=== PATIENT | male | born 1955 | race Caucasian/White ===

== ENCOUNTER 2019-02-28 05:33 | Outpatient (RCR) | payer MEDICARE, OTHER, SELFPAY | END 2019-03-01 00:01 | LOC: ONCMED 05:33 | PROVIDERS: Family Provider Family Medicine; Visit Provider Internal Medicine Medical Oncology | DX: D45 Polycythemia vera (principal) | CPT/HCPCS: 85025 ×2 ==

== ENCOUNTER → 2019-03-17 10:52 | Outpatient (BNVA) | payer MEDICARE, OTHER, SELFPAY | PROVIDERS: Family Provider Family Medicine; PCP Family Medicine; Referring Provider Family Medicine; Visit Provider Orthopaedic Surgery | DX: M70.42 Prepatellar bursitis, left knee (principal) | CPT/HCPCS: 73560 ==

== ENCOUNTER 2019-03-28 05:37 | Outpatient (RCR) | payer MEDICARE, OTHER, SELFPAY ==
[2019-03-07 10:26] LABS: Basophils # 0.1 10^3/uL (0.0-0.1); Basophils % 0.4 %; Eosinophils # 0.2 10^3/uL (0.0-0.8); Eosinophils % 0.7 %; Hematocrit 46.2 % (42.0-52.0); Hemoglobin 15.7 g/dL (11.7-16.6); Lymphocytes # 1.7 10^3/uL (0.8-4.8); Lymphocytes % 6.1 %; Mean Corpuscular Hemoglobin 41.4 pg (28.0-34.0); Mean Corpuscular Volume 121.9 fL (80-94); Mean Platelet Volume 10.3 fL (7.4-10.4); Monocytes # 0.9 10^3/uL (0.2-0.9); Monocytes % 3.2 %; Neutrophils # 25.1 10^3/uL (1.8-7.7); Neutrophils % 88.3 %; Nucleated Red Blood Cells % 0 %; Platelet Count 448 10^3/cmm (130-400); Red Blood Count 3.79 10^6/uL (4.1-5.3); Red Cell Distribution Width 14.2 % (12.1-15.1); White Blood Count 28.4 10^3/uL (4.0-10.0)
[2019-03-07 10:45] LABS: Alanine Aminotransferase 11 U/L (0-41); Albumin Level 4.7 g/dL (3.5-5.2); Alkaline Phosphatase 99 IU/L (40-130); Anion Gap 15.6 (5-19); Aspartate Amino Transferase 20 U/L (0-40); Blood Urea Nitrogen 20 mg/dL (8-23); Calcium 9.8 mg/Dl (8.8-10.2); Carbon Dioxide 25 mmol/L (22-29); Chloride 100 mmol/L (98-107); Globulin 2.3 g/dL (1.3-4.6); Glomerular Filtration Rate 67.2 mL/min (90-130); Glucose 104 mg/dL (74-106); Potassium 4.6 mmol/L (3.5-5.1); Sodium 136 mmol/L (136-145); Total Bilirubin 0.4 mg/dL (0.15-1.2)
[2019-03-07 10:53] LABS: Lactate Dehydrogenase 301 U/L (135-225)
--- NOTE | 2019-03-08 08:00 | ONC FU_ITS ---
Dr. Vincent Patient Follow-Up Note Patient: John Tsai Unit #: [id number]: 1955 Dicatated By: Nghia Vincent M.D.Date of Visit:Mar 07, 2019 Onc Med Follow-up/Prog Note Chief Complaint: Polycythemia. History of Present Illness: This is a 63 year-old man with polycythemia rubra vera. It was initially diagnosed in April of 2008. At that time his hemoglobin was markedly elevated at 23.6 g with hematocrit 63%. He had a moderately elevated white count at 20,000, but the platelet count was normal. A JAK2 gene mutation study was positive for the JAK2 [id number] mutation. He was initially managed with phlebotomies. He was later started on hydroxyurea after his platelet count had increased. Since then, he has continued to have a moderate leukocytosis and he also has continued to require phlebotomy occasionally, but his platelet counts have remained normal on hydroxyurea. He has otherwise been in good health. He has had no other medical illnesses, but during followup he has had symptoms of arterial insufficiency in the upper extremities. He also has had evidence of left ventricular hypertrophy. He is a nonsmoker. INTERIM HISTORY: During follow-up his white blood cell count had increased gradually, and he had been requiring phlebotomy more frequently. As of his visit in July 2017 his hydroxyurea dosage was increased to 1500 mg daily. During subsequent follow-up there was some decline in the white blood cell count and the platelet count, and his hemoglobin/hematocrit levels had remained in target range. He was last phlebotomized in January 2018. On 02/03/2019 he was seen for an unplanned visit, as he had developed evidence of arterial insufficiency in the left second and third fingers and his blood count had become significantly elevated with hemoglobin up to 18.5 g, white blood cell count 43,000, and platelet count 381,000. At that time he was phlebotomized, and his hydroxyurea dosage was increased to 1 g 3 times daily. In addition, he was started on cilostazol, but he was not able to tolerate it due to nausea and headache. During subsequent follow-up his blood counts did come down significantly, and as of 02/17/2019 the hydroxyurea dosage was reduced back to 500 mg 3 times daily. He is seen for a follow-up visit. He is still feeling good generally. He has no significant complaints other than the left middle finger is still discolored, and the skin at the tip of the finger has now started to peel. He continues to have some pain with it, but he is still working. Medications: amLODIPine Besylate 1 Tablet (of 5 mg) Oral daily, Childrens Aspirin 1 Tablet (of 81 mg) Tablet, chewable Oral daily, Hydroxyurea 1 Capsule (of 500 mg) Oral t.i.d. Allergies: Iodine Review of Systems: Constitutional - His energy is still okay and he still has normal activity. His appetite is good and his weight is stable. No fever or night sweats. ECOG score is 0, ENMT - No sinus congestion/drainage. No mouth sores. No sore throat or difficulty swallowing, Hematologic/Lymphatic - No abnormal bruising or bleeding, Respiratory - No shortness of breath. No cough. No pleuritic pain or hemoptysis, Cardiovascular - He has arterial insufficiency in his left hand. No angina pain. No palpitations, Gastrointestinal - No nausea or vomiting. No heartburn or acid reflux. No diarrhea or constipation. No blood in the stool or black stools, Genitourinary (M) - No dysuria or hematuria. No urinary frequency. No urgency or incontinence, Musculoskeletal - He still has pain in his left middle finger. He has no other joint or bone pain, Integumentary - He has skin discoloration in his left middle finger, Neurologic - No headache or dizziness. He occasionally has numbness in his left hand, Psychiatric - No anxiety or depression. No insomnia. Vital Signs: Performed on Mar 07, 2019 13:03 Height - 67.00 in Weight - 178.2 lbs (HIGH) BSA - 1.93 sq.m BMI - 27.91 Temperature - 99.3 F (HIGH) Pulse - 62 /min Respiration - 20 /min BP - 141/78 mm(hg) (HIGH) O2 Sat - 99 % Pain - 0 Physical Examination: Constitutional - He looks good generally, Eyes - Sclerae nonicteric. Conjunctivae clear, ENMT - No lesions noted in the oral cavity, Hematologic/Lymphatic - No cervical, clavicular, or axillary adenopathy, Respiratory - Lungs sound clear with good air movement bilaterally, Cardiovascular - Heart rhythm is regular. There is a II/ systolic murmur which is loudest at the aortic area. There is no gallop or rub noted, Abdomen - Soft. Liver is not enlarged. Spleen is not palpable. There is no abdominal mass or ascites noted and there is no inguinal adenopathy, Extremities - No edema. There is presistent discoloration of the distal left middle finger, now with some skin desquamation at the fingertip. The left index has improved significantly, Neurologic - No focal neurologic deficits noted. Lab/Imaging: Test performed on Feb 28, 2019 09:31 WBC 17.9 10 3/uL RBC 3.88 10 6/uL HGB 15.5 g/dL HCT 45.8 % MCV 118.0 fl MCH 39.9 pg MCHC 33.8 g/dl RDW 13.7 % Platelet Count 287 10 3/cmm MPV 10.8 fl Neutrophils 14.6 10 3/uL Lymphocytes 1.9 10 3/uL Monocytes 1.0 10 3/uL Eosinophils 0.2 10 3/uL Basophils 0.1 10 3/uL Neutrophil % 81.2 % Lymphocyte % 10.5 % Monocyte % 5.5 % Eosinophil % 0.8 % Basophils % 0.7 % Impression: 1. Patient with polycythemia rubra vera, initially diagnosed in 2008. He has been on treatment with hydroxyurea, which he tolerates well. He has persistent leukocytosis on treatment. His platelet count, though, have remained in normal range, and he requires phlebotomy just occasionally. 2. During followup he has had evidence of arterial insufficiency in the upper extremities. 3. There was evidence on echocardiogram of left ventricular hypertrophy. During follow-up there was some increase in his white blood cell count, and he had been requiring phlebotomy more frequently. His platelet count had remained normal on the hydroxyurea, but as of July 2017 the hydroxyrea dosage was escalated to 1500 mg daily. . During subsequent follow-up his blood counts had been under better control. He had continued to show gradual decline in his white blood cell count, and he was not requiring any phlebotomy. He had reported episodic cardiovascular symptoms which were somewhat disconcerting, but they had been infrequent. On 02/03/2019 he had presented with evidence of arterial insufficiency in both hands, but significantly worse in the left hand, despite having very good peripheral arterial pulses. His blood counts had increased significantly with his hemoglobin up to 18.5 g. At that time he was phlebotomized and his hydroxyurea dosage was increased to 1 g 3 times daily. He also started treatment with amlodipine 5 mg daily and subsequently with cilostazol 100 mg twice daily. He was not able to tolerate the cilostazol due to nausea and headache. During subsequent follow-up, the blood counts did come down significantly and as of 02/17/2019 the hydroxyurea dosage was reduced back to 500 mg 3 times daily. There has now been noticeable improvement in the appearance of the left index finger, but not so much in the left middle finger. He is otherwise not symptomatic, but his blood counts are increasing again. Plan: He will increase the hydroxyurea dosage to 1 g twice daily. He will be scheduled to return in 1 week for a blood count and a phlebotomy, and he will then continue to have blood counts checked weekly. I will see him again in 1 month. Signed By: Nghia Vincent M.D. <<Signature on File>>
[2019-03-14 10:51] LABS: Basophils # 0.1 10^3/uL (0.0-0.1); Basophils % 0.5 %; Eosinophils # 0.1 10^3/uL (0.0-0.8); Eosinophils % 0.6 %; Hematocrit 46.6 % (42.0-52.0); Hemoglobin 15.7 g/dL (11.7-16.6); Lymphocytes # 1.9 10^3/uL (0.8-4.8); Lymphocytes % 8.8 %; Mean Corpuscular HGB Conc 33.7 g/dL (30.0-36.0); Mean Corpuscular Hemoglobin 41.1 pg (28.0-34.0); Mean Platelet Volume 10.4 fL (7.4-10.4); Monocytes # 0.6 10^3/uL (0.2-0.9); Monocytes % 2.9 %; Neutrophils # 18.9 10^3/uL (1.8-7.7); Neutrophils % 86.3 %; Nucleated Red Blood Cells % 0 %; Platelet Count 485 10^3/cmm (130-400); Red Blood Count 3.82 10^6/uL (4.1-5.3); Red Cell Distribution Width 14.5 % (12.1-15.1); White Blood Count 21.9 10^3/uL (4.0-10.0)
[2019-03-21 08:45] LABS: Basophils # 0.1 10^3/uL (0.0-0.1); Basophils % 0.5 %; Eosinophils # 0.1 10^3/uL (0.0-0.8); Eosinophils % 0.4 %; Hematocrit 41.4 % (42.0-52.0); Hemoglobin 14.1 g/dL (11.7-16.6); Lymphocytes # 1.6 10^3/uL (0.8-4.8); Lymphocytes % 9.8 %; Mean Corpuscular HGB Conc 34.1 g/dL (30.0-36.0); Mean Corpuscular Hemoglobin 40.6 pg (28.0-34.0); Mean Corpuscular Volume 119.3 fL (80-94); Mean Platelet Volume 10.3 fL (7.4-10.4); Monocytes # 0.6 10^3/uL (0.2-0.9); Monocytes % 3.6 %; Neutrophils # 14.1 10^3/uL (1.8-7.7); Neutrophils % 85.1 %; Nucleated Red Blood Cells % 0 %; Platelet Count 344 10^3/cmm (130-400); Red Blood Count 3.47 10^6/uL (4.1-5.3); White Blood Count 16.6 10^3/uL (4.0-10.0)
[2019-03-28 08:38] LABS: Basophils # 0.1 10^3/uL (0.0-0.1); Basophils % 0.6 %; Eosinophils # 0.1 10^3/uL (0.0-0.8); Eosinophils % 0.6 %; Hematocrit 41.5 % (42.0-52.0); Lymphocytes # 1.5 10^3/uL (0.8-4.8); Lymphocytes % 11.4 %; Mean Corpuscular HGB Conc 33.7 g/dL (30.0-36.0); Mean Corpuscular Hemoglobin 40.5 pg (28.0-34.0); Mean Corpuscular Volume 119.9 fL (80-94); Mean Platelet Volume 10.2 fL (7.4-10.4); Monocytes # 0.5 10^3/uL (0.2-0.9); Monocytes % 4.2 %; Neutrophils # 10.5 10^3/uL (1.8-7.7); Neutrophils % 82.6 %; Nucleated Red Blood Cells % 0 %; Platelet Count 262 10^3/cmm (130-400); Red Blood Count 3.46 10^6/uL (4.1-5.3); Red Cell Distribution Width 15.8 % (12.1-15.1); White Blood Count 12.7 10^3/uL (4.0-10.0)
== END 2019-04-01 23:59 | disposition home or self-care (01) ==
LOC: ONCMED 05:37
PROVIDERS: Family Provider Family Medicine; Visit Provider Internal Medicine Medical Oncology
DX: D45 Polycythemia vera (principal); I73.9 Peripheral vascular disease, unspecified; I51.7 Cardiomegaly; Z79.899 Other long term (current) drug therapy; Z79.82 Long term (current) use of aspirin
CPT/HCPCS: 80053; 83615; 85025; 99195; 99211; 99214

== ENCOUNTER 2019-03-30 06:47 | Day surgery (SDC) | payer MEDICARE, OTHER, SELFPAY ==
[2019-03-29 14:11] VITALS: BMI 26.6
[2019-03-30 07:10] VITALS: BP 159/87; PULSE 63; RESP 18; TEMP 36.8; O2SAT 100
[2019-03-30] MEDS: sodium chloride 0.9% 1,000 ML 30 ML IV (07:27)
--- NOTE | 2019-03-30 07:51 | P.ANES_ITS ---
Pre-Anesthetic Assessment Pre-Anesthetic Assessment: Height/Weight: Height 1.73 m Weight 79.379 kg Temp Pulse Resp BP Pulse Ox 98.3 F 63 18 159/87 100 03/30/19 07:10 03/30/19 07:10 03/30/19 07:10 03/30/19 07:10 03/30/19 07:10 Preop Diagnosis: Infected left prepatellar bursa Proposed Procedure: Operation Date: 03/30/19 08:40 Proposed Procedures p Excision of patella bursa of left knee 80456 M70.42(Left) - Karl Mccrary MD Familial anesthetic complications: No hx of anesthesia Was Beta Silvia taken within 24 hours: N/A Last intake: Intake Last Liquid Date 03/29/19 Last Liquid Time 20:00 Last Solid Date 03/29/19 Last Solid Time 20:00 Social: Social History: No alcohol and No tobacco Exam: Pre-Anes Outpt Exam: alert, oriented x 3, clear to auscultation bilater ally and regular rate & rhythm Airway: Cervical ROM: WNL MP: 3 Additional comments: missing Pulmonary: Pulmonary: None reported CV/HEM: CV/HEM: None reported : : None reported Hepatic: Hepatic: None reported GI: GI: None reported Metabolic: Comments: Patient polycythemia (acrocyanosis of L finger), sensitive to hot or cold, fatigued Musc/skel: Musc/skel: None reported Neuropsych: Neuropsych: None reported Anesthetic Plan: ASA status: III Anesthesia: MAC Meds/Allergies Current Medications: Current Medications Generic Name Dose Route Start Last Admin Trade Name Freq PRN Reason Stop Dose Admin Sodium Chloride 1,000 mls @ 30 ml s/hr 03/30/19 07:00 03/30/19 07:27 Sodium Chloride 0.9% IV 03/31/19 06:59 30 mls/hr .Q24H BIMAL Administration Data Anesthesia Cardiac Studies: No Data to Display
--- NOTE | 2019-03-30 08:53 | PM.HPUD ---
H&P update H&P Update: DATE OF SURGERY/PROCEDURE: 03/30/19 DATE H&P PERFORMED: 03/17/19 H&P UPDATE INFORMATION: H&P completed within last 30 days and No changes to prior documentation PREOP DIAGNOSIS: Infected left prepatellar bursa PRIMARY INDICATION FOR PROCEDURE: Infected left prepatellar bursa PLANNED PROCEDURE: Operation Date: 03/30/19 08:40 Proposed Procedures p Excision of patella bursa of left knee 70660 M70.42(Left) - Karl Mccrary MD Full H&P Medications/Allergies: Current Medications: Current Medications Generic Name Dose Route Start Last Admin Trade Name Freq PRN Reason Stop Dose Admin Sodium Chloride 1,000 mls @ 30 ml s/hr 03/30/19 07:00 03/30/19 07:27 Sodium Chloride 0.9% IV 03/31/19 06:59 30 mls/hr .Q24H BIMAL Administration
[2019-03-30 10:24] VITALS: BP 128/80; PULSE 58; RESP 18; TEMP 36.7; O2SAT 96
[2019-03-30 10:51] VITALS: BP 119/79; PULSE 58; RESP 18; TEMP 36.7; O2SAT 96
--- NOTE | 2019-03-30 10:51 | PM.OP ---
Operative Report Date of procedure: 03/30/19 Pre-op Diagnosis: infected left prepatellar bursa Post-op diagnosis: same Post-op Findings: Same Procedure Done: Excision left prepatellar bursa Pathology: other Pathology: Routine cultures were sent to pathology from the bursal tissue removed. Anesthesia: MAC and Local Estimated blood loss (mL): 0 Complications: None Findings: Patient had a thickened prepatellar bursa overlying his tibial tubercle approximately 3 cm in diameter with a central skin nidus expressing trace serous fluid Condition: stable Disposition: PACU Procedure: The patient was taken to the operating room and given sedation by the anesthesia department. The skin was anesthetized with 1% lidocaine with epinephrine midline and circumferentially around the bursa. A midline incision was made approximately 3 cm long. Utilizing sharp scissors the is thickened and scarred bursa was removed circumferentially then elevated off the tibial tubercle and distal patellar tendon. No obvious purulent fluid was identified however a swab was taken of the bursal tissue removed which was sent to pathology. The tourniquet was deflated. The skin edges were closed with 3-0 Prolene horizontal mattress sutures of grabbing the deep tissue with the stitch. Duraflow gauze, 4 x 4's, compressive wrap roll, and a compressive Sebastian wrap were applied. The patient was taken recovery room in stable condition.
== END 2019-03-30 12:12 | disposition home or self-care (01) ==
PROVIDERS: Family Provider Family Medicine; PCP Family Medicine; Visit Provider Orthopaedic Surgery
PROC: (CPT 29870; principal; 2019-03-30 08:40)
DX: M71.162 Other infective bursitis, left knee (principal); Z79.82 Long term (current) use of aspirin
CPT/HCPCS: 27340; 12345; 87070; 87075; 87077; 87186; 87205; J2001; J2250; J2704; J3010; J7030

== ENCOUNTER 2019-04-11 05:59 | Outpatient (RCR) | payer MEDICARE, OTHER, SELFPAY ==
[2019-04-11 11:20] LABS: Basophils # 0.1 10^3/uL (0.0-0.1); Basophils % 0.6 %; Eosinophils # 0.1 10^3/uL (0.0-0.8); Eosinophils % 0.8 %; Hematocrit 43.6 % (42.0-52.0); Hemoglobin 15.1 g/dL (11.7-16.6); Lymphocytes # 2.1 10^3/uL (0.8-4.8); Lymphocytes % 12.6 %; Mean Corpuscular HGB Conc 34.6 g/dL (30.0-36.0); Mean Corpuscular Hemoglobin 42.8 pg (28.0-34.0); Mean Corpuscular Volume 123.5 fL (80-94); Monocytes # 0.6 10^3/uL (0.2-0.9); Monocytes % 3.6 %; Neutrophils # 13.7 10^3/uL (1.8-7.7); Neutrophils % 81.2 %; Nucleated Red Blood Cells % 0 %; Platelet Count 303 10^3/cmm (130-400); Red Blood Count 3.53 10^6/uL (4.1-5.3); Red Cell Distribution Width 16.5 % (12.1-15.1); White Blood Count 16.9 10^3/uL (4.0-10.0)
[2019-04-11 11:49] LABS: Alanine Aminotransferase 12 U/L (0-41); Albumin Level 4.1 g/dL (3.5-5.2); Alkaline Phosphatase 90 IU/L (40-130); Anion Gap 17.2 (5-19); Aspartate Amino Transferase 21 U/L (0-40); Blood Urea Nitrogen 20 mg/dL (8-23); Calcium 9.4 mg/dL (8.5-10.5); Carbon Dioxide 25 mmol/L (22-29); Chloride 99 mmol/L (98-107); Globulin 3.4 g/dL (1.3-4.6); Glomerular Filtration Rate 67.2 mL/min (90-130); Glucose 104 mg/dL (65-115); Lactate Dehydrogenase 226 U/L (135-225); Potassium 4.2 mmol/L (3.5-5.1); Sodium 137 mmol/L (136-145); Total Bilirubin 0.4 mg/dL (0.15-1.2); Total Protein 7.5 g/dL (6.6-8.7)
--- NOTE | 2019-04-11 17:08 | ONC FU_ITS ---
Dr. Vincent Patient Follow-Up Note Patient: John Tsai Unit #: [id number]: [id number] Dicatated By: Nghia Vincent M.D.Date of Visit:Apr 11, 2019 Onc Med Follow-up/Prog Note Chief Complaint: Polycythemia. History of Present Illness: This is a 63 year-old man with polycythemia rubra vera. It was initially diagnosed in April of 2008. At that time his hemoglobin was markedly elevated at 23.6 g with hematocrit 63%. He had a moderately elevated white count at 20,000, but the platelet count was normal. A JAK2 gene mutation study was positive for the JAK2 V617F mutation. He was initially managed with phlebotomies. He was later started on hydroxyurea after his platelet count had increased. Since then, he has continued to have a moderate leukocytosis and he also has continued to require phlebotomy occasionally, but his platelet counts have remained normal on hydroxyurea. He has otherwise been in good health. He has had no other medical illnesses, but during followup he has had symptoms of arterial insufficiency in the upper extremities. He also has had evidence of left ventricular hypertrophy. He is a nonsmoker. INTERIM HISTORY: During follow-up his white blood cell count had increased gradually, and he had been requiring phlebotomy more frequently. As of his visit in July 2017 his hydroxyurea dosage was increased to 1500 mg daily. During subsequent follow-up there was some decline in the white blood cell count and the platelet count, and his hemoglobin/hematocrit levels had remained in target range. He was last phlebotomized in January 2018. On 02/03/2019 he was seen for an unplanned visit, as he had developed evidence of arterial insufficiency in the left second and third fingers and his blood count had become significantly elevated with hemoglobin up to 18.5 g, white blood cell count 43,000, and platelet count 381,000. At that time he was phlebotomized, and his hydroxyurea dosage was increased to 1 g 3 times daily. In addition, he was started on cilostazol, but he was not able to tolerate it due to nausea and headache. During subsequent follow-up his blood counts did come down significantly. The hydroxyurea dosage was subsequently reduced back to 500 mg 3 times daily, but as of 03/07/2019 I had increased it to 1 gm bid. He is seen for a follow-up visit. He has been tolerating the higher dosage of hydroxyurea with no adverse effects. He has ongoing complaints associated with arterial insufficiency of the distal left middle finger. He has been managing it topically with lidocaine, but he does have significant pain whenever that wears off. He also has been having pain in his left knee, and on 03/30/2019 he underwent excision of the left prepatellar bursa for suspected chronic bursitis. There was no obvious purulent fluid identified. A small amount of serous fluid was sent for culture, and it did grow enterococcus. He currently is on antibiotic coverage with Augmentin. Medications: amLODIPine Besylate 1 Tablet (of 5 mg) Oral daily, Augmentin 1 Tablet (of 500-125 mg) Oral t.i.d. for 10 days, Childrens Aspirin 1 Tablet (of 81 mg) Tablet, chewable Oral daily, Hydroxyurea 1 Capsule (of 500 mg) Oral four times a day Allergies: Iodine Review of Systems: Constitutional - His energy is pretty good, but his activity has been restricted due to a recent knee surgery. His appetite is good and his weight is up a couple of pounds. No fever, chills, hot flashes, or night sweats. ECOG score is 2, ENMT - No sinus congestion/drainage. No mouth sores. No sore throat or difficulty swallowing, Hematologic/Lymphatic - He bruises easily, Respiratory - No shortness of breath. No cough. No pleuritic pain or hemoptysis, Cardiovascular - No angina pain. No palpitations, Gastrointestinal - No nausea or vomiting. He has occasional heartburn. No diarrhea or constipation. No blood in the stool or black stools, Genitourinary (M) - No dysuria or hematuria. No urinary frequency. No urgency or incontinence, Musculoskeletal - He has some pain in his left knee. 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 No numbness/paresthesias or other focal neurologic symptoms, Psychiatric - No anxiety or depression. No insomnia. Vital Signs: Performed on Apr 11, 2019 13:40 Height - 67.00 in Weight - 180.2 lbs (HIGH) BSA - 1.93 sq.m BMI - 28.22 Temperature - 98.7 F Pulse - 66 /min Respiration - 18 /min BP - 137/79 mm(hg) O2 Sat - 97 % Pain - 0 Physical Examination: Constitutional - He looks pretty good generally, Eyes - Sclerae nonicteric. Conjunctivae clear, ENMT - No lesions noted in the oral cavity, Hematologic/Lymphatic - No cervical, clavicular, or axillary adenopathy, Respiratory - Lungs sound clear with good air movement bilaterally, Cardiovascular - Heart rhythm is regular. There is a II/ systolic murmur. There is no gallop or rub noted, Abdomen - Soft. Liver is not enlarged. Spleen is not palpable. There is no abdominal mass or ascites noted and there is no inguinal adenopathy, Extremities - No edema. There is presistent discoloration of the distal left middle finger, and there does appear to be necrosis of the fingertip. The left index finger has only minimal residual discoloration. He has good radial pulses bilaterally, Neurologic - No focal neurologic deficits noted. Lab/Imaging: Test performed on Apr 11, 2019 10:28 LDH (Total) 226 U/L Sodium 137 mmol/L Potassium 4.2 mmol/L Chloride 99 mmol/L CO2 25 mmol/L Anion Gap 17.2 BUN 20 mg/dL Creatinine 1.1 mg/dL Cr Clearance (Est) 77.40 mL/min eGFR 67.2 mL/min Glucose 104 mg/dL Calcium 9.4 mg/dL Protein, Total 7.5 g/dL Albumin 4.1 g/dL Globulin 3.4 g/dL Bilirubin, Total 0.4 mg/dL ALT (SGPT) 12 U/L AST (SGOT) 21 U/L Alkaline Phosphatase 90 IU/L WBC 16.9 10 3/uL RBC 3.53 10 6/uL HGB 15.1 g/dL HCT 43.6 % MCV 123.5 fL MCH 42.8 pg MCHC 34.6 g/dL RDW 16.5 % Platelet Count 303 10 3/cmm MPV 10.0 fL Neutrophils 13.7 10 3/uL Lymphocytes 2.1 10 3/uL Monocytes 0.6 10 3/uL Eosinophils 0.1 10 3/uL Basophils 0.1 10 3/uL Neutrophil % 81.2 % Lymphocyte % 12.6 % Monocyte % 3.6 % Eosinophil % 0.8 % Basophils % 0.6 % Impression: 1. Patient with polycythemia rubra vera, initially diagnosed in 2008. He has been on treatment with hydroxyurea, which he tolerates well. He has persistent leukocytosis on treatment. His platelet count, though, have remained in normal range, and he requires phlebotomy just occasionally. 2. During followup he has had evidence of arterial insufficiency in the upper extremities. 3. There was evidence on echocardiogram of left ventricular hypertrophy. During follow-up there was some increase in his white blood cell count, and he had been requiring phlebotomy more frequently. His platelet count had remained normal on the hydroxyurea, but as of July 2017 the hydroxyrea dosage was escalated to 1500 mg daily. . During subsequent follow-up his blood counts had been under better control. He had continued to show gradual decline in his white blood cell count, and he was not requiring any phlebotomy. He had reported episodic cardiovascular symptoms which were somewhat disconcerting, but they had been infrequent. On 02/03/2019 he had presented with evidence of arterial insufficiency in both hands, but significantly worse in the left hand, despite having very good peripheral arterial pulses. His blood counts had increased significantly with his hemoglobin up to 18.5 g. At that time he was phlebotomized and his hydroxyurea dosage was increased to 1 g 3 times daily. He also started treatment with amlodipine 5 mg daily and subsequently with cilostazol 100 mg twice daily. He was not able to tolerate the cilostazol due to nausea and headache. During follow-up, the blood counts had come down significantly and the hydroxyurea dosage was reduced back to 500 mg 3 times daily. There was noticeable improvement in the appearance of the left index finger. However, as of his follow-up visit on 03/07/2019 I had increased the hydroxyurea dosage to 1 g twice daily. His blood counts since then have been well controlled. However, he has had ongoing problems with distal arterial insufficiency in the left hand, now predominantly just affecting the left middle finger. There is evidence of necrosis of the fingertip, and I am not sure now if it is going to be viable. Plan: He will continue treatment with hydroxyurea 1 g twice daily. He will have a repeat CBC in 2 weeks and he will be scheduled for a follow-up visit in 4 weeks. In the meantime, I also will arrange for referral to the wound care clinic. Signed By: Nghia Vincent M.D. <<Signature on File>>
== END 2019-04-11 23:59 | disposition home or self-care (01) ==
LOC: ONCMED 05:59
PROVIDERS: Family Provider Family Medicine; PCP Family Medicine; Visit Provider Internal Medicine Medical Oncology
DX: D45 Polycythemia vera (principal); I73.9 Peripheral vascular disease, unspecified; Z79.899 Other long term (current) drug therapy
CPT/HCPCS: 80053; 83615; 85025; 99214

== ENCOUNTER 2019-04-18 13:00 | Outpatient (RCR) | payer MEDICARE, OTHER, SELFPAY | END 2019-04-30 23:59 | disposition home or self-care (01) | LOC: WOUND 13:00 | PROVIDERS: Family Provider Family Medicine; PCP Family Medicine; Visit Provider Nurse Practitioner Family | DX: L85.3 Xerosis cutis (principal) | CPT/HCPCS: G0463 ==

== ENCOUNTER 2019-04-18 15:00 | Outpatient (CLI) | payer MEDICARE, OTHER, SELFPAY ==
--- NOTE | 2019-04-18 15:04 | XR_ITS ---
WS: [id number] HAND LEFT TECHNIQUE: 3 views of the left hand CLINICAL INFORMATION: PAIN,REDNESS, NON HEALING ULCER COMPARISON: None. FINDINGS: Soft tissue edema third digit. Bandages obscure fine bony detail. Small amount of erosion involving t he distal middle phalanx. Osteomyelitis is not excluded. This can be further evaluated with MRI or CT . XR/XR hand LT min 3V* [id number] IMPRESSION: Soft tissue edema with a small amount of bony erosion involving the distal midd le third phalanx. Osteomyelitis is not excluded. This can be further evaluated with MRI or CT.
== END 2019-04-18 15:01 | disposition home or self-care (01) ==
LOC: RADWPI 15:03
PROVIDERS: Family Provider Family Medicine; PCP Family Medicine; Visit Provider Nurse Practitioner Family
DX: L98.499 Non-pressure chronic ulcer of skin of other sites with unspecified severity (principal); R52 Pain, unspecified; R60.9 Edema, unspecified; M89.8X7 Other specified disorders of bone, ankle and foot; L85.3 Xerosis cutis
CPT/HCPCS: 73130; G0463

== ENCOUNTER 2019-04-27 08:35 | Outpatient (CLI) | payer MEDICARE, OTHER, SELFPAY ==
--- NOTE | 2019-04-27 08:43 | MR_ITS ---
WS: [id number] MRI LEFT HAND was CONTRAST. COMPARISON: Radiograph 04/18/2019 Multiplanar, multisequence imaging is performed without contrast. Patient refused IV contrast. Quality of this is examination is limited due to motion and lack of contrast. Interphalangeal joint space narrowing with osteophytes present involving all fingers. Extremely limit ed evaluation of the DIP joints. No significant amount of edema is identified. There are small erosiv e changes at the DIP joints but no marrow edema. Additional joint space narrowing at the PIP joints. No erosions at the metacarpal heads. Muscles of the hand are normal size without focal atrophy. No ma ss identified. MR/MR hand LT wo con* [id number] IMPRESSION: 1. Study is limited by motion and lack of IV contrast. 2. Interphalangeal joint space narrowing without edema. Probably on the basis of arthritis. Consider inflammatory arthropathy such as psoriasis. Not typical for rheumatoid. Cannot confirm osteomyelitis.
== END 2019-04-27 08:36 | disposition home or self-care (01) ==
LOC: RADSHAW 08:40
PROVIDERS: Family Provider Family Medicine; PCP Family Medicine; Visit Provider Family Medicine
DX: I96 Gangrene, not elsewhere classified (principal); M79.642 Pain in left hand; L03.90 Cellulitis, unspecified
CPT/HCPCS: 73218

== ENCOUNTER 2019-04-27 08:45 | Outpatient (RCR) | payer MEDICARE, OTHER, SELFPAY ==
[2019-04-25 09:03] LABS: Basophils # 0.1 10^3/uL (0.0-0.1); Basophils % 0.6 %; Eosinophils # 0.1 10^3/uL (0.0-0.8); Eosinophils % 0.5 %; Hematocrit 41.6 % (42.0-52.0); Hemoglobin 14.6 g/dL (11.7-16.6); Lymphocytes # 1.5 10^3/uL (0.8-4.8); Lymphocytes % 13.3 %; Mean Corpuscular HGB Conc 35.1 g/dL (30.0-36.0); Mean Corpuscular Hemoglobin 43.6 pg (28.0-34.0); Mean Corpuscular Volume 124.2 fL (80-94); Mean Platelet Volume 10.3 fL (7.4-10.4); Monocytes # 0.4 10^3/uL (0.2-0.9); Monocytes % 3.2 %; Neutrophils # 9.3 10^3/uL (1.8-7.7); Neutrophils % 81.4 %; Nucleated Red Blood Cells % 0 %; Platelet Count 189 10^3/cmm (130-400); Red Blood Count 3.35 10^6/uL (4.1-5.3); Red Cell Distribution Width 16.5 % (12.1-15.1); White Blood Count 11.5 10^3/uL (4.0-10.0)
== END 2019-04-27 08:48 | disposition home or self-care (01) ==
LOC: RADSHAW 08:45
PROVIDERS: Family Provider Family Medicine; PCP Family Medicine; Visit Provider Internal Medicine Medical Oncology
DX: D45 Polycythemia vera (principal)
CPT/HCPCS: 85025

== ENCOUNTER 2019-05-26 05:51 | Outpatient (RCR) | payer MEDICARE, OTHER, SELFPAY ==
[2019-05-12 11:01] LABS: Basophils % 0.4 %; Eosinophils % 0.4 %; Hematocrit 36.5 % (42.0-52.0); Hemoglobin 12.8 g/dL (11.7-16.6); Lymphocytes # 1.1 10^3/uL (0.8-4.8); Lymphocytes % 22.4 %; Mean Corpuscular HGB Conc 35.1 g/dL (30.0-36.0); Mean Corpuscular Hemoglobin 43.4 pg (28.0-34.0); Mean Corpuscular Volume 123.7 fL (80-94); Mean Platelet Volume 9.8 fL (7.4-10.4); Monocytes # 0.2 10^3/uL (0.2-0.9); Monocytes % 3.2 %; Neutrophils # 3.5 10^3/uL (1.8-7.7); Neutrophils % 72.8 %; Nucleated Red Blood Cells % 0 %; Platelet Count 210 10^3/cmm (130-400); Red Blood Count 2.95 10^6/uL (4.1-5.3); Red Cell Distribution Width 15.5 % (12.1-15.1); White Blood Count 4.7 10^3/uL (4.0-10.0)
[2019-05-12 11:12] LABS: Alanine Aminotransferase 16 U/L (0-41); Albumin Level 4.2 g/dL (3.5-5.2); Alkaline Phosphatase 55 IU/L (40-130); Anion Gap 13.8 (5-19); Aspartate Amino Transferase 19 U/L (0-40); Blood Urea Nitrogen 22 mg/dL (8-23); Calcium 9.5 mg/dL (8.5-10.5); Carbon Dioxide 27 mmol/L (22-29); Chloride 101 mmol/L (98-107); Globulin 2.5 g/dL (1.3-4.6); Glucose 112 mg/dL (65-115); Lactate Dehydrogenase 196 U/L (135-225); Osmolality Calculated 281 mOsm/kg (285-295); Potassium 4.8 mmol/L (3.5-5.1); Sodium 137 mmol/L (136-145); Total Bilirubin 0.5 mg/dL (0.15-1.2); Total Protein 6.7 g/dL (6.6-8.7)
--- NOTE | 2019-05-15 15:26 | ONC FU_ITS ---
Dr. Vincent Patient Follow-Up Note Patient: John Tsai Unit #: [id number]: 1955 Dicatated By: Nghia Vincent M.D.Date of Visit:May 12, 2019 Onc Med Follow-up/Prog Note Chief Complaint: Polycythemia. History of Present Illness: This is a 63 year-old man with polycythemia rubra vera. It was initially diagnosed in April of 2008. At that time his hemoglobin was markedly elevated at 23.6 g with hematocrit 63%. He had a moderately elevated white count at 20,000, but the platelet count was normal. A JAK2 gene mutation study was positive for the JAK2 [id number] mutation. He was initially managed with phlebotomies. He was later started on hydroxyurea after his platelet count had increased. Since then, he has continued to have a moderate leukocytosis and he also has continued to require phlebotomy occasionally, but his platelet counts have remained normal on hydroxyurea. He has otherwise been in good health. He has had no other medical illnesses, but during followup he has had symptoms of arterial insufficiency in the upper extremities. He also has had evidence of left ventricular hypertrophy. He is a nonsmoker. INTERIM HISTORY: During follow-up his white blood cell count had increased gradually, and he had been requiring phlebotomy more frequently. As of his visit in July 2017 his hydroxyurea dosage was increased to 1500 mg daily. During subsequent follow-up there was some decline in the white blood cell count and the platelet count, and his hemoglobin/hematocrit levels had remained in target range. He was last phlebotomized in January 2018. On 02/03/2019 he was seen for an unplanned visit, as he had developed evidence of arterial insufficiency in the left second and third fingers and his blood count had become significantly elevated with hemoglobin up to 18.5 g, white blood cell count 43,000, and platelet count 381,000. At that time he was phlebotomized, and his hydroxyurea dosage was increased to 1 g 3 times daily. In addition, he was started on cilostazol, but he was not able to tolerate it due to nausea and headache. During subsequent follow-up his blood counts decreased significantly. The hydroxyurea dosage was subsequently reduced to 500 mg 3 times daily, but as of 03/07/2019 I had increased it back up to 1 gm bid. 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 On 03/30/2019 he underwent excision of the left prepatellar bursa. Cultures grew Enterococcus faecalis. He was placed on antibiotic coverage with Augmentin. He continued hydroxyurea 1 g 3 times daily for the polycythemia. He is seen for a scheduled visit. He has been feeling pretty good generally. His finger continues to improve slowly. He continues to have drainage from his left knee, though it is now a clear yellow fluid. The knee pain does limit his activity somewhat, but I would rate his ECOG score is 0. He has good appetite. He has no fever or night sweating. He has had no mouth sores. He has occasional cough. He does not complain of shortness of breath or chest pain. He says his stomach is occasionally queasy, most likely from the antibiotic. He has no other GI or complaints. He still has some pain in his left middle finger and is left knee bothers him occasionally. He does not complain of headache or dizziness. He occasionally has numbness in his hands. Medications: amLODIPine Besylate 1 Tablet (of 5 mg) Oral daily, Childrens Aspirin 1 Tablet (of 81 mg) Tablet, chewable Oral daily, Hydroxyurea 1 Capsule (of 500 mg) Oral four times a day Allergies: Iodine Review of Systems: Constitutional - His energy level is overall good. He is able to do all his normal activity. Appetite is good and weight is stable. No fever, chills, hot flashes, or night sweats. ECOG score is 0, ENMT - No sinus congestion/drainage. No mouth sores. No sore throat or difficulty swallowing, Hematologic/Lymphatic - He has occasional nose bleeds, Respiratory - No shortness of breath. No cough. No pleuritic pain or hemoptysis, Cardiovascular - No angina pain. No palpitations, Gastrointestinal - He had some nausea this morning, but none at this time. No vomiting. No heartburn or acid reflux. No diarrhea or constipation. No blood in the stool or black stools, Genitourinary (M) - No dysuria or hematuria. No urinary frequency. No urgency or incontinence, Musculoskeletal - He has pain in his left middle finger and in his left knee, Integumentary - No other skin changes, Neurologic - No headache or dizziness. He has occasional numbness in both hands, Psychiatric - No anxiety or depression. No insomnia. Vital Signs: Performed on May 12, 2019 13:26 Height - 67.00 in Weight - 181.0 lbs (HIGH) BSA - 1.94 sq.m BMI - 28.35 Temperature - 98.6 F Pulse - 60 /min Respiration - 18 /min BP - 141/75 mm(hg) (HIGH) O2 Sat - 97 % Pain - 2 Physical Examination: Constitutional - He looks good generally, Eyes - Sclerae nonicteric. Conjunctivae clear, ENMT - No lesions noted in the oral cavity, Hematologic/Lymphatic - No cervical, clavicular, or axillary adenopathy, Respiratory - Lungs sound clear with good air movement bilaterally, Cardiovascular - Heart rhythm is regular. There is a II/ systolic murmur. There is no gallop or rub noted, Abdomen - Soft. Liver is not enlarged. Spleen is not palpable. There is no abdominal mass or ascites noted and there is no inguinal adenopathy, Extremities - No edema. There is presistent discoloration of the distal left middle finger, but it does look a little better. The left index finger has only minimal residual discoloration in the fingernail, Neurologic - No focal neurologic deficits noted. Lab/Imaging: Test performed on May 12, 2019 10:44 LDH (Total) 196 U/L Sodium 137 mmol/L Potassium 4.8 mmol/L Chloride 101 mmol/L CO2 27 mmol/L Anion Gap 13.8 BUN 22 mg/dL Creatinine 1.0 mg/dL Cr Clearance (Est) 85.52 mL/min eGFR 75.0 mL/min Glucose 112 mg/dL Calcium 9.5 mg/dL Protein, Total 6.7 g/dL Albumin 4.2 g/dL Globulin 2.5 g/dL Bilirubin, Total 0.5 mg/dL ALT (SGPT) 16 U/L AST (SGOT) 19 U/L Alkaline Phosphatase 55 IU/L WBC 4.7 10 3/uL RBC 2.95 10 6/uL HGB 12.8 g/dL HCT 36.5 % MCV 123.7 fL MCH 43.4 pg MCHC 35.1 g/dL RDW 15.5 % Platelet Count 210 10 3/cmm MPV 9.8 fL Neutrophils 3.5 10 3/uL Lymphocytes 1.1 10 3/uL Monocytes 0.2 10 3/uL Eosinophils 0.0 10 3/uL Basophils 0.0 10 3/uL Neutrophil % 72.8 % Lymphocyte % 22.4 % Monocyte % 3.2 % Eosinophil % 0.4 % Basophils % 0.4 % Impression: 1. Patient with polycythemia rubra vera, initially diagnosed in 2008. He has been on treatment with hydroxyurea, which he tolerates well. He has persistent leukocytosis on treatment. His platelet count, though, have remained in normal range, and he requires phlebotomy just occasionally. 2. During followup he has had evidence of arterial insufficiency in the upper extremities. 3. There was evidence on echocardiogram of left ventricular hypertrophy. During follow-up there was some increase in his white blood cell count, and he had been requiring phlebotomy more frequently. His platelet count had remained normal on the hydroxyurea, but as of July 2017 the hydroxyrea dosage was escalated to 1500 mg daily. . During subsequent follow-up his blood counts had been under better control. He had continued to show gradual decline in his white blood cell count, and he was not requiring any phlebotomy. He had reported episodic cardiovascular symptoms which were somewhat disconcerting, but they had been infrequent. On 02/03/2019 he had presented with evidence of arterial insufficiency in both hands, but significantly worse in the left hand, despite having very good peripheral arterial pulses. His blood counts had increased significantly with his hemoglobin up to 18.5 g. At that time he was phlebotomized and his hydroxyurea dosage was increased to 1 g 3 times daily. He also started treatment with amlodipine 5 mg daily and subsequently with cilostazol 100 mg twice daily. He was not able to tolerate the cilostazol due to nausea and headache. During follow-up, the blood counts had come down significantly and the hydroxyurea dosage was reduced back to 500 mg 3 times daily. There was noticeable improvement in the appearance of the left index finger. However, as of his follow-up visit on 03/07/2019 I had increased the hydroxyurea dosage to 1 g twice daily. His blood counts had suabdquently decreased, though he had ongoing problems with distal arterial insufficiency in the left middle finger. He also had developed persistent drainage from the left knee, specifically the left prepatellar bursa. He underwent excision of the bursa on 03/30/2019. Cultures grew Enterococcus faecalis. Despite the surgery and despite continued antibiotic coverage with Augmentin, he has continued to have some drainage of clear yellow fluid. There has been significant improvement in the appearance of the left index finger. The left middle finger also has had some improvement, though still with evidence of persistent arterial insufficiency at the fingertip. His blood counts now are borderline low. Plan: With the blood counts borderline low, he will reduce the hydroxyurea dosage to 500 mg 3 times daily. His blood count will be rechecked in 2 weeks. He will be scheduled for a follow-up visit in 4 weeks. Signed By: Nghia Vincent M.D. <<Signature on File>>
[2019-05-26 09:40] LABS: Basophils % 0.3 %; Eosinophils # 0.1 10^3/uL (0.0-0.8); Eosinophils % 0.7 %; Hematocrit 34.9 % (42.0-52.0); Hemoglobin 12.4 g/dL (11.7-16.6); Lymphocytes # 1.6 10^3/uL (0.8-4.8); Lymphocytes % 23.3 %; Mean Corpuscular HGB Conc 35.5 g/dL (30.0-36.0); Mean Corpuscular Volume 132.2 fL (80-94); Mean Platelet Volume 10.1 fL (7.4-10.4); Monocytes # 0.4 10^3/uL (0.2-0.9); Monocytes % 6.5 %; Neutrophils # 4.6 10^3/uL (1.8-7.7); Neutrophils % 68.2 %; Nucleated Red Blood Cells % 0 %; Platelet Count 188 10^3/cmm (130-400); Red Blood Count 2.64 10^6/uL (4.1-5.3); Red Cell Distribution Width 15.7 % (12.1-15.1); White Blood Count 6.8 10^3/uL (4.0-10.0)
== END 2019-05-31 23:59 | disposition home or self-care (01) ==
LOC: ONCMED 05:51
PROVIDERS: Family Provider Family Medicine; PCP Family Medicine; Visit Provider Internal Medicine Medical Oncology
DX: D45 Polycythemia vera (principal); I73.9 Peripheral vascular disease, unspecified; Z79.899 Other long term (current) drug therapy; Z79.82 Long term (current) use of aspirin
CPT/HCPCS: 36415; 80053; 83615; 85025; 99214

== ENCOUNTER 2019-06-23 12:40 | Outpatient (RCR) | payer MEDICARE, OTHER, SELFPAY ==
[2019-06-09 10:33] LABS: Basophils % 0.4 %; Eosinophils % 0.3 %; Hematocrit 34.7 % (42.0-52.0); Lymphocytes # 1.3 10^3/uL (0.8-4.8); Lymphocytes % 13.3 %; Mean Corpuscular HGB Conc 34.6 g/dL (30.0-36.0); Mean Corpuscular Hemoglobin 45.8 pg (28.0-34.0); Mean Corpuscular Volume 132.4 fL (80-94); Monocytes # 0.5 10^3/uL (0.2-0.9); Monocytes % 5.1 %; Neutrophils # 7.7 10^3/uL (1.8-7.7); Neutrophils % 80.4 %; Nucleated Red Blood Cells % 0 %; Platelet Count 320 10^3/cmm (130-400); Red Blood Count 2.62 10^6/uL (4.1-5.3); Red Cell Distribution Width 13.3 % (12.1-15.1); White Blood Count 9.5 10^3/uL (4.0-10.0)
[2019-06-09 10:46] LABS: Alanine Aminotransferase 18 U/L (0-41); Albumin Level 4.2 g/dL (3.5-5.2); Alkaline Phosphatase 69 IU/L (40-130); Anion Gap 15.8 (5-19); Aspartate Amino Transferase 20 U/L (0-40); Blood Urea Nitrogen 22 mg/dL (8-23); Calcium 9.3 mg/dL (8.5-10.5); Carbon Dioxide 25 mmol/L (22-29); Chloride 101 mmol/L (98-107); Glomerular Filtration Rate 74.8 mL/min (90-130); Glucose 114 mg/dL (65-115); Lactate Dehydrogenase 217 U/L (135-225); Osmolality Calculated 282 mOsm/kg (285-295); Potassium 4.8 mmol/L (3.5-5.1); Sodium 137 mmol/L (136-145); Total Bilirubin 0.3 mg/dL (0.15-1.2); Total Protein 7.2 g/dL (6.6-8.7)
[2019-06-23 15:02] LABS: Alanine Aminotransferase 18 U/L (0-41); Albumin Level 4.5 g/dL (3.5-5.2); Alkaline Phosphatase 78 IU/L (40-130); Anion Gap 16.4 (5-19); Aspartate Amino Transferase 26 U/L (0-40); Blood Urea Nitrogen 22 mg/dL (8-23); Calcium 9.6 mg/dL (8.5-10.5); Carbon Dioxide 25 mmol/L (22-29); Chloride 99 mmol/L (98-107); Globulin 3.4 g/dL (1.3-4.6); Glucose 107 mg/dL (65-115); Osmolality Calculated 279 mOsm/kg (285-295); Potassium 4.4 mmol/L (3.5-5.1); Sodium 136 mmol/L (136-145); Total Bilirubin 0.4 mg/dL (0.15-1.2); Total Protein 7.9 g/dL (6.6-8.7)
[2019-06-23 15:04] LABS: Basophils # 0.1 10^3/uL (0.0-0.1); Basophils % 0.5 %; Eosinophils # 0.1 10^3/uL (0.0-0.8); Eosinophils % 0.4 %; Hematocrit 39.6 % (42.0-52.0); Hemoglobin 13.7 g/dL (11.7-16.6); Lymphocytes # 1.3 10^3/uL (0.8-4.8); Lymphocytes % 8.4 %; Mean Corpuscular HGB Conc 34.6 g/dL (30.0-36.0); Mean Corpuscular Volume 132.9 fL (80-94); Mean Platelet Volume 10.6 fL (7.4-10.4); Monocytes # 0.7 10^3/uL (0.2-0.9); Monocytes % 4.7 %; Neutrophils # 12.8 10^3/uL (1.8-7.7); Neutrophils % 84.9 %; Nucleated Red Blood Cells % 0 %; Platelet Count 388 10^3/cmm (130-400); Red Blood Count 2.98 10^6/uL (4.1-5.3); Red Cell Distribution Width 11.6 % (12.1-15.1)
[2019-06-23 18:00] LABS: Lactate Dehydrogenase 303 U/L (135-225)
== END 2019-06-30 23:59 | disposition home or self-care (01) ==
LOC: ONCMED 12:40
PROVIDERS: Family Provider Family Medicine; PCP Family Medicine; Visit Provider Internal Medicine Medical Oncology
DX: D45 Polycythemia vera (principal)
CPT/HCPCS: 36415; 80053; 83615; 85025

== ENCOUNTER 2019-07-27 06:44 | Outpatient (RCR) | payer MEDICARE, OTHER, SELFPAY ==
[2019-07-07 16:35] LABS: Basophils # 0.1 10^3/uL (0.0-0.1); Basophils % 0.4 %; Eosinophils # 0.1 10^3/uL (0.0-0.8); Eosinophils % 0.5 %; Hematocrit 43.7 % (42.0-52.0); Hemoglobin 14.9 g/dL (11.7-16.6); Lymphocytes # 1.1 10^3/uL (0.8-4.8); Mean Corpuscular HGB Conc 34.1 g/dL (30.0-36.0); Mean Corpuscular Hemoglobin 45.4 pg (28.0-34.0); Mean Corpuscular Volume 133.2 fL (80-94); Mean Platelet Volume 10.8 fL (7.4-10.4); Monocytes # 0.6 10^3/uL (0.2-0.9); Monocytes % 3.7 %; Neutrophils # 13.6 10^3/uL (1.8-7.7); Neutrophils % 87.6 %; Nucleated Red Blood Cells % 0 %; Platelet Count 353 10^3/cmm (130-400); Red Blood Count 3.28 10^6/uL (4.1-5.3); Red Cell Distribution Width 11.9 % (12.1-15.1); White Blood Count 15.5 10^3/uL (4.0-10.0)
[2019-07-07 16:45] LABS: Alanine Aminotransferase 12 U/L (0-41); Albumin Level 4.5 g/dL (3.5-5.2); Alkaline Phosphatase 100 IU/L (40-130); Anion Gap 20.7 (5-19); Blood Urea Nitrogen 21 mg/dL (8-23); Carbon Dioxide 20 mmol/L (22-29); Chloride 98 mmol/L (98-107); Globulin 3.7 g/dL (1.3-4.6); Glomerular Filtration Rate 60.6 mL/min (90-130); Glucose 50 mg/dL (65-115); Osmolality Calculated 272 mOsm/kg (285-295); Potassium 4.7 mmol/L (3.5-5.1); Sodium 134 mmol/L (136-145); Total Bilirubin 0.4 mg/dL (0.15-1.2); Total Protein 8.2 g/dL (6.6-8.7)
[2019-07-07 17:01] LABS: Aspartate Amino Transferase 31 U/L (0-40); Lactate Dehydrogenase 458 U/L (135-225)
[2019-07-27 11:17] LABS: Basophils # 0.1 10^3/uL (0.0-0.1); Basophils % 0.9 %; Eosinophils # 0.1 10^3/uL (0.0-0.8); Eosinophils % 0.7 %; Hematocrit 40.5 % (42.0-52.0); Hemoglobin 13.8 g/dL (11.7-16.6); Lymphocytes # 1.2 10^3/uL (0.8-4.8); Lymphocytes % 11.1 %; Mean Corpuscular HGB Conc 34.1 g/dL (30.0-36.0); Mean Corpuscular Hemoglobin 43.8 pg (28.0-34.0); Mean Corpuscular Volume 128.6 fL (80-94); Mean Platelet Volume 10.3 fL (7.4-10.4); Monocytes # 0.5 10^3/uL (0.2-0.9); Monocytes % 4.9 %; Neutrophils # 8.5 10^3/uL (1.8-7.7); Neutrophils % 81.5 %; Nucleated Red Blood Cells % 0 %; Platelet Count 226 10^3/cmm (130-400); Red Blood Count 3.15 10^6/uL (4.1-5.3); Red Cell Distribution Width 12.4 % (12.1-15.1); White Blood Count 10.4 10^3/uL (4.0-10.0)
[2019-07-27 11:34] LABS: Alanine Aminotransferase 12 U/L (0-41); Albumin Level 4.2 g/dL (3.5-5.2); Alkaline Phosphatase 71 IU/L (40-130); Anion Gap 14.7 (5-19); Aspartate Amino Transferase 21 U/L (0-40); Blood Urea Nitrogen 22 mg/dL (8-23); Calcium 9.6 mg/dL (8.5-10.5); Carbon Dioxide 24 mmol/L (22-29); Chloride 101 mmol/L (98-107); Globulin 2.9 g/dL (1.3-4.6); Glomerular Filtration Rate 60.6 mL/min (90-130); Glucose 98 mg/dL (65-115); Lactate Dehydrogenase 236 U/L (135-225); Osmolality Calculated 277 mOsm/kg (285-295); Potassium 4.7 mmol/L (3.5-5.1); Sodium 135 mmol/L (136-145); Total Bilirubin 0.5 mg/dL (0.15-1.2); Total Protein 7.1 g/dL (6.6-8.7)
--- NOTE | 2019-07-31 09:45 | ONC FU_ITS ---
Dr. Vincent Patient Follow-Up Note Patient: John Tsai Unit #: [id number]: 1955 Dicatated By: Nghia Vincent M.D.Date of Visit:July 27, 2019 Onc Med Follow-up/Prog Note Chief Complaint: Polycythemia. History of Present Illness: This is a 64 year-old man with polycythemia rubra vera. It was initially diagnosed in April of 2008. At that time his hemoglobin was markedly elevated at 23.6 g with hematocrit 63%. He had a moderately elevated white count at 20,000, but the platelet count was normal. A JAK2 gene mutation study was positive for the JAK2 [id number] mutation. He was initially managed with phlebotomies. He was later started on hydroxyurea after his platelet count had increased. Since then, he has continued to have a moderate leukocytosis and he also has continued to require phlebotomy occasionally, but his platelet counts have remained normal on hydroxyurea. He has otherwise been in good health. He has had no other medical illnesses, but during followup he has had symptoms of arterial insufficiency in the upper extremities. He also has had evidence of left ventricular hypertrophy. He is a nonsmoker. INTERIM HISTORY: During follow-up his white blood cell count had increased gradually, and he had been requiring phlebotomy more frequently. As of his visit in July 2017 his hydroxyurea dosage was increased to 1500 mg daily. During subsequent follow-up there was some decline in the white blood cell count and the platelet count, and his hemoglobin/hematocrit levels had remained in target range. He was last phlebotomized in January 2018. On 02/03/2019 he was seen for an unplanned visit, as he had developed evidence of arterial insufficiency in the left second and third fingers and his blood count had become significantly elevated with hemoglobin up to 18.5 g, white blood cell count 43,000, and platelet count 381,000. At that time he was phlebotomized, and his hydroxyurea dosage was increased to 1 g 3 times daily. In addition, he was started on cilostazol, but he was not able to tolerate it due to nausea and headache. During subsequent follow-up his blood counts decreased significantly. The hydroxyurea dosage was subsequently reduced to 500 mg 3 times daily, but as of 03/07/2019 I had increased it back up to 1 gm bid. 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 On 03/30/2019 he underwent excision of the left prepatellar bursa. Cultures grew Enterococcus faecalis. He was placed on antibiotic coverage with Augmentin. He continued hydroxyurea 1 g 3 times daily for the polycythemia. During follow-up the dosage was transitioned to 500 mg twice daily and subsequently to 1 g twice daily. He is seen for a scheduled visit. He has been feeling good generally, though his energy is just fair. He is doing some work. ECOG score is 1. He has good appetite. He has no fever or night sweats. He does not complain of shortness of breath. He has just occasional cough. He has not been having chest pain. He does occasionally notice that his heart is irregular. He occasionally has nausea. He also occasionally has indigestion, but he does manage it adequately with Sprite. Bowel and bladder function have been okay. He has pain in his left knee. He still has some pain in his left middle finger. He does not complain of headache. He occasionally has dizziness. He says his numbness/tingling is better. Medications: amLODIPine Besylate 1 Tablet (of 5 mg) Oral daily, Childrens Aspirin 1 Tablet (of 81 mg) Tablet, chewable Oral daily, Hydroxyurea 2 Capsule (of 500 mg) Oral b.i.d. Allergies: Iodine Review of Systems: Constitutional - His energy level is fair. He is working some. Appetite is good and weight is stable. No fever, chills, hot flashes, or night sweats. ECOG score is 1, ENMT - No sinus congestion/drainage. No mouth sores. No sore throat or difficulty swallowing, Hematologic/Lymphatic - No abnormal bruising or bleeding, Respiratory - No shortness of breath. He has occasional cough. No pleuritic pain or hemoptysis, Cardiovascular - No angina pain. No palpitations. He occasionally notices irregular heart rate, Gastrointestinal - He has intermittent nausea but no vomiting. No heartburn or acid reflux. No diarrhea or constipation. No blood in the stool or black stools, Genitourinary (M) - No dysuria or hematuria. No urinary frequency. No urgency or incontinence, Musculoskeletal - He has aching pain in his left knee and he still has pain in his left middle finger, Integumentary - No skin rashes, Neurologic - No headache. He has intermittent dizziness that lasts a couple seconds. He has numbness/paresthesias, but it is improving. No other focal neurologic symptoms, Psychiatric - No anxiety or depression. No insomnia. Vital Signs: Performed on July 27, 2019 13:10 Height - 67.00 in Weight - 184.8 lbs (HIGH) BSA - 1.96 sq.m BMI - 28.94 Temperature - 98.0 F (LOW) Pulse - 61 /min Respiration - 17 /min BP - 143/79 mm(hg) (HIGH) O2 Sat - 98 % Pain - 3 Physical Examination: Constitutional - He looks good generally, Eyes - Sclerae nonicteric. Conjunctivae clear, ENMT - No lesions noted in the oral cavity, Hematologic/Lymphatic - No cervical, clavicular, or axillary adenopathy, Respiratory - Lungs sound clear with good air movement bilaterally, Cardiovascular - Heart rhythm is regular. There is a II/ systolic murmur. There is no gallop or rub noted, Abdomen - Soft. Liver is not enlarged. Spleen is not palpable. There is no abdominal mass or ascites noted and there is no inguinal adenopathy, Extremities - No edema. There is presistent discoloration of the distal left middle finger, Neurologic - No focal neurologic deficits noted. Lab/Imaging: Test performed on July 27, 2019 10:51 LDH (Total) 236 U/L Sodium 135 mmol/L Potassium 4.7 mmol/L Chloride 101 mmol/L CO2 24 mmol/L Anion Gap 14.7 BUN 22 mg/dL Creatinine 1.2 mg/dL Cr Clearance (Est) 71.79 mL/min eGFR 60.6 mL/min Glucose 98 mg/dL Calcium 9.6 mg/dL Protein, Total 7.1 g/dL Albumin 4.2 g/dL Globulin 2.9 g/dL Bilirubin, Total 0.5 mg/dL ALT (SGPT) 12 U/L AST (SGOT) 21 U/L Alkaline Phosphatase 71 IU/L WBC 10.4 10 3/uL RBC 3.15 10 6/uL HGB 13.8 g/dL HCT 40.5 % MCV 128.6 fL MCH 43.8 pg MCHC 34.1 g/dL RDW 12.4 % Platelet Count 226 10 3/cmm MPV 10.3 fL Neutrophils 8.5 10 3/uL Lymphocytes 1.2 10 3/uL Monocytes 0.5 10 3/uL Eosinophils 0.1 10 3/uL Basophils 0.1 10 3/uL Neutrophil % 81.5 % Lymphocyte % 11.1 % Monocyte % 4.9 % Eosinophil % 0.7 % Basophils % 0.9 % Impression: 1. Patient with polycythemia rubra vera, initially diagnosed in 2008. He has been on treatment with hydroxyurea, which he tolerates well. He has persistent leukocytosis on treatment. His platelet count, though, have remained in normal range, and he requires phlebotomy just occasionally. 2. During followup he has had evidence of arterial insufficiency in the upper extremities. 3. There was evidence on echocardiogram of left ventricular hypertrophy. During follow-up there was some increase in his white blood cell count, and he had been requiring phlebotomy more frequently. His platelet count had remained normal on the hydroxyurea, but as of July 2017 the hydroxyrea dosage was escalated to 1500 mg daily. . During subsequent follow-up his blood counts had been under better control. He had continued to show gradual decline in his white blood cell count, and he was not requiring any phlebotomy. He had reported episodic cardiovascular symptoms which were somewhat disconcerting, but they had been infrequent. On 02/03/2019 he had presented with evidence of arterial insufficiency in both hands, but significantly worse in the left hand, despite having very good peripheral arterial pulses. His blood counts had increased significantly with his hemoglobin up to 18.5 g. At that time he was phlebotomized and his hydroxyurea dosage was increased to 1 g 3 times daily. He also started treatment with amlodipine 5 mg daily and subsequently with cilostazol 100 mg twice daily. He was not able to tolerate the cilostazol due to nausea and headache. During follow-up, the blood counts had come down significantly and the hydroxyurea dosage was reduced back to 500 mg 3 times daily. There was noticeable improvement in the appearance of the left index finger. However, as of his follow-up visit on 03/07/2019 I had increased the hydroxyurea dosage to 1 g twice daily. His blood counts had suabdquently decreased, though he had ongoing problems with distal arterial insufficiency in the left middle finger. He also had developed persistent drainage from the left knee, specifically the left prepatellar bursa. He underwent excision of the bursa on 03/30/2019. Cultures grew Enterococcus faecalis. Despite the surgery and despite continued antibiotic coverage with Augmentin, he continued to have some drainage of clear yellow fluid. Since then he has continued to have some pain in the left knee. He continues to have some issues with arterial insufficiency in the left middle finger, though it seems to show very gradual improvement. His blood counts have been well controlled on hydroxyurea at 1 g twice daily. Plan: He will continue hydroxyurea 1 g twice daily. His blood counts will be monitored monthly. I will see him again in 3 months, or sooner as needed. Signed By: Nghia Vincent M.D. <<Signature on File>>
== END 2019-07-31 23:59 | disposition home or self-care (01) ==
LOC: ONCMED 06:44
PROVIDERS: PCP Family Medicine; Visit Provider Internal Medicine Medical Oncology
DX: D45 Polycythemia vera (principal); Z79.82 Long term (current) use of aspirin; D72.829 Elevated white blood cell count, unspecified; I51.7 Cardiomegaly; I77.1 Stricture of artery; Z79.899 Other long term (current) drug therapy
CPT/HCPCS: 36415; 80053; 83615; 85025; 99214

== ENCOUNTER 2019-08-03 13:57 | Outpatient (CLI) | payer MEDICARE, OTHER, SELFPAY | END 2019-08-03 13:58 | disposition home or self-care (01) | LOC: WOUND 13:58 | PROVIDERS: PCP Family Medicine; Visit Provider Thoracic Surgery (Cardiothoracic Vascular Surgery) | DX: T81.89XA Other complications of procedures, not elsewhere classified, initial encounter (principal); Y83.8 Other surgical procedures as the cause of abnormal reaction of the patient, or of later complication, without mention of misadventure at the time of the procedure | CPT/HCPCS: 11043; G0463 ==

== ENCOUNTER 2019-08-10 15:09 | Outpatient (CLI) | payer MEDICARE, OTHER, SELFPAY | END 2019-08-10 15:10 | disposition home or self-care (01) | LOC: WOUND 15:13 | PROVIDERS: PCP Family Medicine; Visit Provider Thoracic Surgery (Cardiothoracic Vascular Surgery) | DX: T81.89XA Other complications of procedures, not elsewhere classified, initial encounter (principal); Y83.8 Other surgical procedures as the cause of abnormal reaction of the patient, or of later complication, without mention of misadventure at the time of the procedure | CPT/HCPCS: 11042 ==

== ENCOUNTER 2019-08-12 08:08 | Outpatient (CLI) | payer MEDICARE, OTHER, SELFPAY ==
--- NOTE | 2019-08-12 08:16 | MR_ITS ---
WS: [id number] MRI LEFT KNEE NONCONTRAST AND CONTRAST TECHNIQUE: Axial PD, coronal PD fat sat, coronal PD, sagittal PD, and sagittal PD fat-sat images obta ined. Post gadolinium imaging was obtained. CLINICAL INFORMATION: PAIN/REDNESS/NON HEALING ULCER COMPARISON: None. FINDINGS: Soft tissue ulceration anterior knee along the tibial tuberosity. Soft tissue ulceration measures 1.8 x 1.3 CM. Postoperative changes in this area. No evidence of drainable abscess or fluid collection. Small amount of soft tissue enhancement. Small amount of edema and enhancement in the underlying ante rior tibia. Fatty bone marrow signal is relatively well-preserved. Most of this appears reactive with reactive edema and enhancement. Early osteomyelitis not entirely excluded. Recommend interval follow -up. Distal quadriceps and patella tendons are intact. Infrapatellar soft tissue edema. Edema in Hoffa's f at pad. Small suprapatellar effusion. ACL and PCL are intact. Medial and lateral collateral ligaments are intact. Medial and lateral meniscus are intact. Well-circumscribed T1 hyperintense enhancing les ion posterior femoral diametaphysis measuring 17 mm appears nonaggressive and may represent intraosse ous hemangioma or enchondroma. Patella is normal in appearance. No subchondral edema. Normal popliteal fossa. MR/MR knee LT wo/w con [id number] IMPRESSION: 1. Soft tissue ulceration overlying the tibial tuberosity. No evidence of unde rlying abscess or fluid collection. 2. Small amount of edema and enhancement in the underlying anterior tibia with preservation of the T1 fatty bone marrow signal. This appears mostly reactive however early osteomyelitis not entirely excluded. Recommend interval follow-up . 3. Normal anterior and posterior cruciate ligaments. 4. Edema in Hoffa's fat pad. Small amount of infrapatellar soft tissue edema. 5. Enhancing well-circumscribed lesion in the posterior femur measuring 17 mm appears nonaggressive. This is nonspecific but Differential considerations incl ude intraosseous hemangioma or enchondroma. This can be followed up with MRI kn ee without and with gadolinium enhancement in 6 months to confirm stability.
== END 2019-08-12 08:09 | disposition home or self-care (01) ==
LOC: RADWPI 08:14
PROVIDERS: PCP Family Medicine; Visit Provider Thoracic Surgery (Cardiothoracic Vascular Surgery)
DX: M25.562 Pain in left knee (principal); L97.929 Non-pressure chronic ulcer of unspecified part of left lower leg with unspecified severity; L53.9 Erythematous condition, unspecified; R60.9 Edema, unspecified
CPT/HCPCS: 73723; A9579

== ENCOUNTER 2019-08-17 10:49 | Outpatient (CLI) | payer MEDICARE, OTHER, SELFPAY | END 2019-08-17 10:50 | disposition home or self-care (01) | LOC: WOUND 10:53 | PROVIDERS: PCP Family Medicine; Visit Provider Thoracic Surgery (Cardiothoracic Vascular Surgery) | DX: T81.89XA Other complications of procedures, not elsewhere classified, initial encounter (principal) | CPT/HCPCS: 11042 ==

== ENCOUNTER 2019-08-26 06:49 | Outpatient (RCR) | payer MEDICARE, OTHER, SELFPAY ==
[2019-08-26 08:37] LABS: Basophils # 0.1 10^3/uL (0.0-0.1); Basophils % 0.6 %; Eosinophils # 0.1 10^3/uL (0.0-0.8); Eosinophils % 0.7 %; Hematocrit 38.1 % (42.0-52.0); Hemoglobin 13.3 g/dL (11.7-16.6); Lymphocytes # 1.8 10^3/uL (0.8-4.8); Lymphocytes % 16.9 %; Mean Corpuscular HGB Conc 34.9 g/dL (30.0-36.0); Mean Corpuscular Volume 126.2 fL (80-94); Mean Platelet Volume 10.1 fL (7.4-10.4); Monocytes # 0.5 10^3/uL (0.2-0.9); Monocytes % 4.3 %; Neutrophils % 76.8 %; Nucleated Red Blood Cells % 0 %; Platelet Count 198 10^3/cmm (130-400); Red Blood Count 3.02 10^6/uL (4.1-5.3); Red Cell Distribution Width 13.9 % (12.1-15.1); White Blood Count 10.4 10^3/uL (4.0-10.0)
== END 2019-08-30 23:59 | disposition home or self-care (01) ==
LOC: ONCMED 06:49
PROVIDERS: PCP Family Medicine; Visit Provider Internal Medicine Medical Oncology
DX: D45 Polycythemia vera (principal); I10 Essential (primary) hypertension; I51.7 Cardiomegaly; Z79.899 Other long term (current) drug therapy
CPT/HCPCS: 36415; 85025

== ENCOUNTER 2019-09-26 07:11 | Outpatient (RCR) | payer MEDICARE, OTHER, SELFPAY ==
[2019-09-26 08:53] LABS: Basophils # 0.1 10^3/uL (0.0-0.1); Basophils % 0.6 %; Eosinophils # 0.1 10^3/uL (0.0-0.8); Eosinophils % 0.7 %; Hematocrit 38.3 % (42.0-52.0); Hemoglobin 12.9 g/dL (11.7-16.6); Lymphocytes # 1.7 10^3/uL (0.8-4.8); Lymphocytes % 17.4 %; Mean Corpuscular HGB Conc 33.7 g/dL (30.0-36.0); Mean Corpuscular Hemoglobin 44.5 pg (28.0-34.0); Mean Corpuscular Volume 132.1 fL (80-94); Mean Platelet Volume 10.2 fL (7.4-10.4); Monocytes # 0.5 10^3/uL (0.2-0.9); Monocytes % 4.5 %; Neutrophils # 7.51 10^3/uL (1.8-7.7); Neutrophils % 75.8 %; Nucleated Red Blood Cells % 0 %; Platelet Count 226 10^3/cmm (130-400); Red Cell Distribution Width 16.3 % (12.1-15.1); White Blood Count 9.9 10^3/uL (4.0-10.0)
== END 2019-09-30 23:59 | disposition home or self-care (01) ==
LOC: ONCMED 07:11
PROVIDERS: PCP Family Medicine; Visit Provider Internal Medicine Medical Oncology
DX: D45 Polycythemia vera (principal); I10 Essential (primary) hypertension
CPT/HCPCS: 85025

== ENCOUNTER 2019-10-27 06:17 | Outpatient (RCR) | payer MEDICARE, OTHER, SELFPAY ==
[2019-10-27 14:37] LABS: Basophils # 0.1 10^3/uL (0.0-0.1); Basophils % 0.5 %; Eosinophils # 0.1 10^3/uL (0.0-0.8); Eosinophils % 0.5 %; Hematocrit 35.6 % (42.0-52.0); Hemoglobin 12.1 g/dL (11.7-16.6); Lymphocytes # 1.2 10^3/uL (0.8-4.8); Lymphocytes % 10.4 %; Mean Corpuscular Hemoglobin 46.5 pg (28.0-34.0); Mean Corpuscular Volume 136.9 fL (80-94); Mean Platelet Volume 10.2 fL (7.4-10.4); Monocytes # 0.7 10^3/uL (0.2-0.9); Monocytes % 6.1 %; Neutrophils # 9.73 10^3/uL (1.8-7.7); Neutrophils % 81.2 %; Nucleated Red Blood Cells % 0 %; Platelet Count 256 10^3/cmm (130-400); Red Cell Distribution Width 13.3 % (12.1-15.1)
--- NOTE | 2019-10-27 20:27 | ONC FU_ITS ---
Dr. Vincent Patient Follow-Up Note Patient: John Tsai Unit #: [id number]: 1955 Dicatated By: Nghia Vincent M.D.Date of Visit:Oct 27, 2019 Onc Med Follow-up/Prog Note Chief Complaint: Polycythemia. History of Present Illness: This is a 64 year-old man with polycythemia rubra vera. It was initially diagnosed in April of 2008. At that time his hemoglobin was markedly elevated at 23.6 g with hematocrit 63%. He had a moderately elevated white count at 20,000, but the platelet count was normal. A JAK2 gene mutation study was positive for the JAK2 [id number] mutation. He was initially managed with phlebotomies. He was later started on hydroxyurea after his platelet count had increased. Since then, he has continued to have a moderate leukocytosis and he also has continued to require phlebotomy occasionally, but his platelet counts have remained normal on hydroxyurea. He has otherwise been in good health. He has had no other medical illnesses, but during followup he has had symptoms of arterial insufficiency in the upper extremities. He also has had evidence of left ventricular hypertrophy. He is a nonsmoker. INTERIM HISTORY: During follow-up his white blood cell count had increased gradually, and he had been requiring phlebotomy more frequently. As of his visit in July 2017 his hydroxyurea dosage was increased to 1500 mg daily. During subsequent follow-up there was some decline in the white blood cell count and the platelet count, and his hemoglobin/hematocrit levels had remained in target range. He was last phlebotomized in January 2018. On 02/03/2019 he was seen for an unplanned visit, as he had developed evidence of arterial insufficiency in the left second and third fingers and his blood count had become significantly elevated with hemoglobin up to 18.5 g, white blood cell count 43,000, and platelet count 381,000. At that time he was phlebotomized, and his hydroxyurea dosage was increased to 1 g 3 times daily. In addition, he was started on cilostazol, but he was not able to tolerate it due to nausea and headache. During subsequent follow-up his blood counts decreased significantly. The hydroxyurea dosage was subsequently reduced to 500 mg 3 times daily, but as of 03/07/2019 I had increased it back up to 1 gm bid. 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 On 03/30/2019 he underwent excision of the left prepatellar bursa. Cultures grew Enterococcus faecalis. He was placed on antibiotic coverage with Augmentin. He continued hydroxyurea 1 g 3 times daily for the polycythemia. During follow-up the dosage was transitioned to 500 mg twice daily and subsequently to 1 g twice daily. He is seen for a scheduled visit. He has been feeling pretty good generally. He does have some fatigue, though. He says his energy is good for a while, but then it bottoms out. His ECOG score is 1. He has good appetite. He has no fever or night sweats. He has noticed that even when he is working in the hot weather he has only mild sweating, and that is a very significant change, as during his whole life he has always sweated heavily with activity. He has not had mouth sores. He does not complain of cough. He has not been having shortness of breath or chest pain. He occasionally has a little nausea. He has no other GI or complaints. He has been having some swelling in his ankles during the daytime, though it does go down at night. He has ongoing problems with the left knee infection, which has been slowly healing. He has lost the tip of his left middle finger. Medications: amLODIPine Besylate 1 Tablet (of 5 mg) Oral daily, Childrens Aspirin 1 Tablet (of 81 mg) Tablet, chewable Oral daily on Every Other Day, Hydroxyurea (500 mg) Capsule Oral Take as Directed Allergies: Iodine Review of Systems: Constitutional - He has been feeling good and his energy is mostly good but he does have periods of fatigued. He is able to do light work. His appetite is good and his weight is down 3 pounds from last visit. No fever, night sweats, or hot flashes. ECOG score is 1, ENMT - He has seasonal allergies. He has a runny nose. No mouth sores. No sore throat or difficulty swallowing, Hematologic/Lymphatic - No abnormal bruising or bleeding, Respiratory - No shortness of breath. No cough. No pleuritic pain or hemoptysis, Cardiovascular - No angina pain. No palpitations, Gastrointestinal - No nausea or vomiting. No heartburn or acid reflux. No diarrhea or constipation. No blood in the stool or black stools, Genitourinary (M) - No dysuria or hematuria. No urinary frequency. No urgency or incontinence, Musculoskeletal - He has pain in his knee, Integumentary - He has been having some edema in his feet during the day, Neurologic - He has a slight headache or dizziness. He has tingling in his finger. No other focal neurologic symptoms, Psychiatric - No anxiety or depression. No insomnia. Vital Signs: Performed on Oct 27, 2019 15:29 Height - 67.00 in Weight - 181.2 lbs (LOW) BSA - 1.94 sq.m BMI - 28.38 Temperature - 98.9 F (HIGH) Pulse - 55 /min (LOW) Respiration - 18 /min BP - 141/70 mm(hg) (HIGH) O2 Sat - 98 % Pain - 0 Physical Examination: Constitutional - He looks good generally, Eyes - Sclerae nonicteric. Conjunctivae clear, ENMT - No lesions noted in the oral cavity, Hematologic/Lymphatic - No cervical, clavicular, or axillary adenopathy, Respiratory - Lungs are clear with good air movement bilaterally, Cardiovascular - Heart rhythm is regular. There is a II/ systolic murmur. There is no gallop or rub noted, Abdomen - Soft. Liver and spleen are not enlarged. There is no abdominal mass or ascites noted and there is no inguinal adenopathy, Extremities - There is mild edema at the ankles. He has palpable pulses in the upper and lower extremities. The tip of the left middle finger has necrosis off, but it has healed well, Integumentary - No rashes. No suspicious skin lesions noted, Neurologic - No focal neurologic deficits noted. Lab/Imaging: Test performed on Oct 27, 2019 14:02 WBC 12.0 10 3/uL RBC 2.60 10 6/uL HGB 12.1 g/dL HCT 35.6 % MCV 136.9 fL MCH 46.5 pg MCHC 34.0 g/dL RDW 13.3 % Platelet Count 256 10 3/cmm MPV 10.2 fL Neutrophils 9.73 10 3/uL Lymphocytes 1.2 10 3/uL Monocytes 0.7 10 3/uL Eosinophils 0.1 10 3/uL Basophils 0.1 10 3/uL Neutrophil % 81.2 % Lymphocyte % 10.4 % Monocyte % 6.1 % Eosinophil % 0.5 % Basophils % 0.5 % NRBC % 0 % Impression: 1. Patient with polycythemia rubra vera, initially diagnosed in 2008. He has been on treatment with hydroxyurea, which he has tolerated well. 2. During followup he was found to have evidence of arterial insufficiency in the upper extremities. 3. There was evidence on echocardiogram of left ventricular hypertrophy. During follow-up there was some increase in his white blood cell count, and he had been requiring phlebotomy more frequently. His platelet count had remained normal on the hydroxyurea, but as of July 2017 the hydroxyrea dosage was escalated to 1500 mg daily. . During subsequent follow-up his blood counts had been under better control. He had continued to show gradual decline in his white blood cell count, and he was not requiring any phlebotomy. He had reported episodic cardiovascular symptoms which were somewhat disconcerting, but they had been infrequent. On 02/03/2019 he had presented with evidence of arterial insufficiency in both hands, but significantly worse in the left hand, despite having very good peripheral arterial pulses. His blood counts had increased significantly with his hemoglobin up to 18.5 g. At that time he was phlebotomized and his hydroxyurea dosage was increased to 1 g 3 times daily. He also started treatment with amlodipine 5 mg daily and subsequently with cilostazol 100 mg twice daily. He was not able to tolerate the cilostazol due to nausea and headache. His blood counts had come down significantly on the higher dose of hydroxyurea. Initially there was noticeable improvement in the appearance of the left index finger, though problems with distal arterial insufficiency persisted. He also developed persistent drainage from the left knee, specifically the left prepatellar bursa. He underwent excision of the bursa on 03/30/2019. Cultures grew Enterococcus faecalis. Despite the surgery and despite continued antibiotic coverage with Augmentin, he continued to have some drainage of clear yellow fluid, and he continued to have pain in the left knee. More recently he has been mildly anemic, and on his own he has been cutting down on his hydroxyurea dosage. Since his last visit the tip of the left middle finger has necrosis off, but it has healed well. The open wound at his left knee has been gradually healing. He does appear to be having more fatigue, and he also reports having decreased sweating. Plan: He will continue hydroxyurea with the dosage reduced to 2 g daily on Mondays/ and 1500 mg daily all other days. His blood counts will be monitored monthly. I will see him again in 3 months. Signed By: Nghia Vincent M.D. <<Signature on File>>
== END 2019-10-31 23:59 | disposition home or self-care (01) ==
LOC: ONCMED 06:17
PROVIDERS: PCP Family Medicine; Visit Provider Internal Medicine Medical Oncology
DX: D45 Polycythemia vera (principal); I73.9 Peripheral vascular disease, unspecified; I51.7 Cardiomegaly; R53.83 Other fatigue; Z79.899 Other long term (current) drug therapy
CPT/HCPCS: 85025; 99214

== ENCOUNTER 2019-11-28 08:33 | Outpatient (CLI) | payer MEDICARE, OTHER, SELFPAY ==
[2019-11-28 08:53] LABS: Basophils # 0.1 10^3/uL (0.0-0.1); Basophils % 0.7 %; Eosinophils # 0.2 10^3/uL (0.0-0.8); Eosinophils % 1.1 %; Hematocrit 43.4 % (42.0-52.0); Hemoglobin 14.5 g/dL (11.7-16.6); Lymphocytes # 2.3 10^3/uL (0.8-4.8); Mean Corpuscular HGB Conc 33.4 g/dL (30.0-36.0); Mean Corpuscular Hemoglobin 47.9 pg (28.0-34.0); Mean Corpuscular Volume 143.2 fL (80-94); Mean Platelet Volume 9.8 fL (7.4-10.4); Monocytes # 0.8 10^3/uL (0.2-0.9); Monocytes % 4.3 %; Neutrophils # 13.91 10^3/uL (1.8-7.7); Nucleated Red Blood Cells % 0 %; Platelet Count 234 10^3/cmm (130-400); Red Blood Count 3.03 10^6/uL (4.1-5.3); Red Cell Distribution Width 11.4 % (12.1-15.1); White Blood Count 17.4 10^3/uL (4.0-10.0)
== END 2019-11-28 08:34 | disposition home or self-care (01) ==
LOC: ONCMED 08:36
PROVIDERS: PCP Family Medicine; Visit Provider Internal Medicine Medical Oncology
DX: D45 Polycythemia vera (principal)
CPT/HCPCS: 36415; 85025

== ENCOUNTER 2019-12-26 06:13 | Outpatient (CLI) | payer MEDICARE, OTHER, SELFPAY ==
[2019-12-26 09:30] LABS: Basophils # 0.1 10^3/uL (0.0-0.1); Basophils % 0.7 %; Eosinophils # 0.1 10^3/uL (0.0-0.8); Eosinophils % 0.7 %; Hematocrit 45.7 % (42.0-52.0); Hemoglobin 15.5 g/dL (11.7-16.6); Lymphocytes # 1.8 10^3/uL (0.8-4.8); Lymphocytes % 12.5 %; Mean Corpuscular HGB Conc 33.9 g/dL (30.0-36.0); Mean Corpuscular Hemoglobin 45.7 pg (28.0-34.0); Mean Corpuscular Volume 134.8 fL (80-94); Mean Platelet Volume 10.2 fL (7.4-10.4); Monocytes # 0.8 10^3/uL (0.2-0.9); Monocytes % 5.3 %; Neutrophils # 11.69 10^3/uL (1.8-7.7); Neutrophils % 79.7 %; Nucleated Red Blood Cells % 0 %; Platelet Count 356 10^3/cmm (130-400); Red Blood Count 3.39 10^6/uL (4.1-5.3); Red Cell Distribution Width 11.4 % (12.1-15.1); White Blood Count 14.7 10^3/uL (4.0-10.0)
== END 2019-12-26 06:14 | disposition home or self-care (01) ==
LOC: ONCMED 06:15
PROVIDERS: PCP Family Medicine; Visit Provider Internal Medicine Medical Oncology
DX: D45 Polycythemia vera (principal)
CPT/HCPCS: 36415; 85025

== ENCOUNTER 2020-01-30 09:40 | Outpatient (CLI) | payer MEDICARE, OTHER, SELFPAY ==
[2020-01-30 10:28] LABS: Basophils # 0.1 10^3/uL (0.0-0.1); Basophils % 0.6 %; Eosinophils # 0.1 10^3/uL (0.0-0.8); Eosinophils % 0.7 %; Hematocrit 46.2 % (42.0-52.0); Hemoglobin 16.1 g/dL (11.7-16.6); Lymphocytes # 1.8 10^3/uL (0.8-4.8); Lymphocytes % 9.9 %; Mean Corpuscular HGB Conc 34.8 g/dL (30.0-36.0); Mean Corpuscular Hemoglobin 44.8 pg (28.0-34.0); Mean Corpuscular Volume 128.7 fL (80-94); Mean Platelet Volume 10.4 fL (7.4-10.4); Monocytes # 0.7 10^3/uL (0.2-0.9); Neutrophils # 15.26 10^3/uL (1.8-7.7); Neutrophils % 83.8 %; Nucleated Red Blood Cells % 0 %; Platelet Count 363 10^3/cmm (130-400); Red Blood Count 3.59 10^6/uL (4.1-5.3); Red Cell Distribution Width 11.9 % (12.1-15.1); White Blood Count 18.2 10^3/uL (4.0-10.0)
[2020-01-30 10:51] LABS: Alanine Aminotransferase 13 U/L (0-41); Albumin Level 4.1 g/dL (3.5-5.2); Alkaline Phosphatase 81 IU/L (40-130); Aspartate Amino Transferase 17 U/L (0-40); Blood Urea Nitrogen 20 mg/dL (8-23); Calcium 9.2 mg/dL (8.5-10.5); Carbon Dioxide 25 mmol/L (22-29); Chloride 102 mmol/L (98-107); Globulin 2.8 g/dL (1.3-4.6); Glomerular Filtration Rate 74.8 mL/min (90-130); Glucose 106 mg/dL (65-115); Osmolality Calculated 287 mOsm/kg (285-295); Sodium 137 mmol/L (136-145); Total Bilirubin 0.4 mg/dL (0.15-1.2); Total Protein 6.9 g/dL (6.6-8.7)
[2020-01-30 10:52] LABS: Anion Gap 14.5 (5-19); Lactate Dehydrogenase 248 U/L (135-225); Potassium 4.5 mmol/L (3.5-5.1)
--- NOTE | 2020-02-03 11:17 | ONC FU_ITS ---
Dr. Vincent Patient Follow-Up Note Patient: John Tsai Unit #: [id number]: 1955 Dicatated By: Nghia Vincent M.D.Date of Visit:Jan 30, 2020 Onc Med Follow-up/Prog Note Chief Complaint: Polycythemia. History of Present Illness: This is a 64 year-old man with polycythemia rubra vera. It was initially diagnosed in April of 2008. At that time his hemoglobin was markedly elevated at 23.6 g with hematocrit 63%. He had a moderately elevated white count at 20,000, but the platelet count was normal. A JAK2 gene mutation study was positive for the JAK2 V617F mutation. He was initially managed with phlebotomies. He was later started on hydroxyurea after his platelet count had increased. Since then, he has continued to have a moderate leukocytosis and he also has continued to require phlebotomy occasionally, but his platelet counts have remained normal on hydroxyurea. He has otherwise been in good health. He has had no other medical illnesses, but during followup he has had symptoms of arterial insufficiency in the upper extremities. He also has had evidence of left ventricular hypertrophy. He is a nonsmoker. INTERIM HISTORY: During follow-up his white blood cell count had increased gradually, and he had been requiring phlebotomy more frequently. As of his visit in July 2017 his hydroxyurea dosage was increased to 1500 mg daily. During subsequent follow-up there was some decline in the white blood cell count and the platelet count, and his hemoglobin/hematocrit levels had remained in target range. He was last phlebotomized in January 2018. On 02/03/2019 he was seen for an unplanned visit, as he had developed evidence of arterial insufficiency in the left second and third fingers and his blood count had become significantly elevated with hemoglobin up to 18.5 g, white blood cell count 43,000, and platelet count 381,000. At that time he was phlebotomized, and his hydroxyurea dosage was increased to 1 g 3 times daily. In addition, he was started on cilostazol, but he was not able to tolerate it due to nausea and headache. During subsequent follow-up his blood counts decreased significantly. The hydroxyurea dosage was subsequently reduced to 500 mg 3 times daily, but as of 03/07/2019 I had increased it back up to 1 gm bid. 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 On 03/30/2019 he underwent excision of the left prepatellar bursa. Cultures grew Enterococcus faecalis. He was placed on antibiotic coverage with Augmentin. He continued hydroxyurea 1 g 3 times daily for the polycythemia. As of his follow-up visit on 10/27/2019 he continued hydroxyurea at 1000 mg twice a day on 2 days each week and 500 mg 3 times daily all other days. He has since then had some further dose adjustments, most recently to 500 mg 3 times a day twice weekly and 500 mg twice daily on all other days. He had also been referred to a kiss mixer and [place] after developing a skin ulceration on his left ankle. This apparently was felt to be due to arterial insufficiency, and he restarted treatment with cilostazol, but he again was not able to tolerate it due to GI side effects. He was taken off amlodipine due to swelling in the lower extremities. He is seen for a scheduled visit. He has been feeling pretty good generally. He is still has ongoing follow-up care for the skin ulceration on his left ankle. He has pretty good energy and activity tolerance. ECOG score is 1. He has good appetite. He does not have fever or night sweats. He has had no mouth sores. He has just occasional cough. He does not complain of shortness of breath or chest pain. He had nausea with the cilostazol, that has since improved. He has no other GI or complaints. He has pain in his left knee and left ankle and he still has some pain in his left middle finger. He occasionally has numbness/tingling in his fingers. Medications: Childrens Aspirin 1 Tablet (of 81 mg) Tablet, chewable Oral daily on Every Other Day, Doxycycline Hyclate 1 Tablet Oral daily, Hydroxyurea (500 mg) Capsule Oral Take as Directed Allergies: Iodine Review of Systems: Constitutional - His energy has been okay. He has pretty good activity tolerance. Appetite is good. He has not had fever or night sweats. In fact, he reports that he does not sweat at all. ECOG score is 1, ENMT - No sinus congestion/drainage. No mouth sores. No sore throat or difficulty swallowing, Hematologic/Lymphatic - He has been bruising a little more easily, Respiratory - No shortness of breath. He has just occasional cough. No pleuritic pain or hemoptysis, Cardiovascular - No angina pain. No palpitations, Gastrointestinal - He has had some nausea, attributable to medication. No heartburn or acid reflux. No diarrhea or constipation. No blood in the stool or black stools, Genitourinary (M) - No dysuria or hematuria. No urinary frequency. No urgency or incontinence, Musculoskeletal - He has some pain in the left knee and left ankle and he also still has some pain in his left index finger, Integumentary - He has been undergoing treatment for a skin ulceration on the left ankle, Neurologic - No headache or dizziness. He occasionally has numbness in his fingers. No other focal neurologic symptoms, Psychiatric - No anxiety or depression. No insomnia. Vital Signs: Performed on Jan 30, 2020 12:20 Height - 67.00 in Weight - 176.8 lbs (LOW) BSA - 1.92 sq.m BMI - 27.69 Temperature - 98.4 F Pulse - 85 /min Respiration - 16 /min BP - 167/82 mm(hg) (HIGH) O2 Sat - 95 % (LOW) Pain - 4 Physical Examination: Constitutional - He looks good generally, Eyes - Sclerae nonicteric. Conjunctivae clear, ENMT - No lesions noted in the oral cavity, Hematologic/Lymphatic - No cervical, clavicular, or axillary adenopathy, Respiratory - Lungs are clear with good air movement bilaterally, Cardiovascular - Heart rhythm is regular. There is a II/ systolic murmur. There is no gallop or rub noted, Abdomen - Soft. Liver and spleen are not enlarged. There is no abdominal mass or ascites noted and there is no inguinal adenopathy, Extremities - No edema. He has good dorsalis pedis pulses bilaterally, Integumentary - The left middle finger appears well healed. There is a healing ulceration on the lateral aspect of the left ankle. There are 2 smaller lesions which have healed, both with residual scarring, Neurologic - No focal neurologic deficits noted. Lab/Imaging: Test performed on Jan 30, 2020 10:00 LDH (Total) 248 U/L Sodium 137 mmol/L Potassium 4.5 mmol/L Chloride 102 mmol/L CO2 25 mmol/L Anion Gap 14.5 BUN 20 mg/dL Creatinine 1.0 mg/dL Cr Clearance (Est) 82.42 mL/min eGFR 74.8 mL/min Glucose 106 mg/dL Osmolality - Calculated 287 mOsm/kg Calcium 9.2 mg/dL Protein, Total 6.9 g/dL Albumin 4.1 g/dL Globulin 2.8 g/dL Bilirubin, Total 0.4 mg/dL ALT (SGPT) 13 U/L AST (SGOT) 17 U/L Alkaline Phosphatase 81 IU/L WBC 18.2 10 3/uL RBC 3.59 10 6/uL HGB 16.1 g/dL HCT 46.2 % MCV 128.7 fL MCH 44.8 pg MCHC 34.8 g/dL RDW 11.9 % Platelet Count 363 10 3/cmm MPV 10.4 fL Neutrophils 15.26 10 3/uL Lymphocytes 1.8 10 3/uL Monocytes 0.7 10 3/uL Eosinophils 0.1 10 3/uL Basophils 0.1 10 3/uL Neutrophil % 83.8 % Lymphocyte % 9.9 % Monocyte % 4.0 % Eosinophil % 0.7 % Basophils % 0.6 % NRBC % 0 % Impression: 1. Patient with polycythemia rubra vera, initially diagnosed in 2008. He has been on treatment with hydroxyurea, which he has tolerated well. 2. During followup he was found to have evidence of arterial insufficiency in the upper extremities. 3. There was evidence on echocardiogram of left ventricular hypertrophy. During follow-up there was some increase in his white blood cell count, and he had been requiring phlebotomy more frequently. His platelet count had remained normal on the hydroxyurea, but as of July 2017 the hydroxyrea dosage was escalated to 1500 mg daily. . During subsequent follow-up his blood counts had been under better control. He had continued to show gradual decline in his white blood cell count, and he was not requiring any phlebotomy. He had reported episodic cardiovascular symptoms which were somewhat disconcerting, but they had been infrequent. On 02/03/2019 he had presented with evidence of arterial insufficiency in both hands, but significantly worse in the left hand, despite having very good peripheral arterial pulses. His blood counts had increased significantly with his hemoglobin up to 18.5 g. At that time he was phlebotomized and his hydroxyurea dosage was increased to 1 g 3 times daily. He also started treatment with amlodipine 5 mg daily and subsequently with cilostazol 100 mg twice daily. He was not able to tolerate the cilostazol due to nausea and headache. His blood counts had come down significantly on the higher dose of hydroxyurea. Initially there was noticeable improvement in the appearance of the left index finger, though problems with distal arterial insufficiency persisted. He also developed persistent drainage from the left knee, specifically the left prepatellar bursa. He underwent excision of the bursa on 03/30/2019. Cultures grew Enterococcus faecalis. Despite the surgery and despite continued antibiotic coverage with Augmentin, he continued to have some drainage of clear yellow fluid, and he continued to have pain in the left knee. During further follow-up the tip of his left middle finger eventually necrosed off and his left knee wound gradually healed. The dosage of his hydroxyurea was gradually reduced, as he had become mildly anemic. The blood counts now have increased again, and he has required treatment for a skin ulceration on the lateral aspect of the left ankle. This appears to be more likely a vascular issue as opposed to a side effect of the hydroxyurea. Plan: We will continue hydroxyurea with the dosage adjusted to 500 mg twice daily on Mondays, Wednesdays and Fridays and 500 mg 3 times daily all other days. Blood counts will be monitored monthly. I will see him again in 3 months. He declines a flu shot. Signed By: Nghia Vincent M.D. <<Signature on File>>
== END 2020-01-30 09:41 | disposition home or self-care (01) ==
LOC: ONCMED 09:43
PROVIDERS: PCP Family Medicine; Visit Provider Internal Medicine Medical Oncology
DX: D45 Polycythemia vera (principal); Z79.899 Other long term (current) drug therapy
CPT/HCPCS: 36415; 80053; 83615; 85025; 99214

== ENCOUNTER 2020-02-28 09:55 | Outpatient (CLI) | payer MEDICARE, OTHER, SELFPAY ==
[2020-02-28 10:44] LABS: Basophils # 0.1 10^3/uL (0.0-0.1); Basophils % 0.7 %; Eosinophils # 0.2 10^3/uL (0.0-0.8); Eosinophils % 0.8 %; Hematocrit 44.3 % (42.0-52.0); Hemoglobin 15.5 g/dL (11.7-16.6); Lymphocytes # 2.2 10^3/uL (0.8-4.8); Lymphocytes % 11.6 %; Mean Corpuscular Hemoglobin 45.1 pg (28.0-34.0); Mean Corpuscular Volume 128.8 fL (80-94); Mean Platelet Volume 10.3 fL (7.4-10.4); Monocytes # 0.7 10^3/uL (0.2-0.9); Monocytes % 3.5 %; Neutrophils # 15.26 10^3/uL (1.8-7.7); Neutrophils % 82.3 %; Nucleated Red Blood Cells % 0 %; Platelet Count 325 10^3/cmm (130-400); Red Blood Count 3.44 10^6/uL (4.1-5.3); Red Cell Distribution Width 13.2 % (12.1-15.1); White Blood Count 18.6 10^3/uL (4.0-10.0)
== END 2020-02-28 09:56 | disposition home or self-care (01) ==
LOC: ONCMED 09:58
PROVIDERS: PCP Family Medicine; Visit Provider Internal Medicine Medical Oncology
DX: D45 Polycythemia vera (principal)
CPT/HCPCS: 36415; 85025

== ENCOUNTER 2020-03-29 09:27 | Outpatient (CLI) | payer MEDICARE, OTHER, SELFPAY ==
[2020-03-29 10:15] LABS: Basophils # 0.1 10^3/uL (0.0-0.1); Basophils % 0.5 %; Eosinophils # 0.1 10^3/uL (0.0-0.8); Eosinophils % 0.6 %; Hemoglobin 15.2 g/dL (11.7-16.6); Lymphocytes % 9.2 %; Mean Corpuscular HGB Conc 35.3 g/dL (30.0-36.0); Mean Corpuscular Hemoglobin 45.6 pg (28.0-34.0); Mean Corpuscular Volume 129.1 fL (80-94); Monocytes # 0.8 10^3/uL (0.2-0.9); Monocytes % 3.6 %; Neutrophils # 18.72 10^3/uL (1.8-7.7); Nucleated Red Blood Cells % 0 %; Platelet Count 353 10^3/cmm (130-400); Red Blood Count 3.33 10^6/uL (4.1-5.3); Red Cell Distribution Width 13.1 % (12.1-15.1)
== END 2020-03-29 09:28 | disposition home or self-care (01) ==
PROVIDERS: PCP Family Medicine; Visit Provider Internal Medicine Medical Oncology
DX: D45 Polycythemia vera (principal)
CPT/HCPCS: 36415; 85025

== ENCOUNTER 2020-04-25 08:46 | Outpatient (CLI) | payer MEDICARE, OTHER, SELFPAY ==
[2020-04-25 09:35] LABS: Basophils # 0.2 10^3/uL (0.0-0.1); Basophils % 0.8 %; Eosinophils # 0.2 10^3/uL (0.0-0.8); Eosinophils % 0.9 %; Hematocrit 44.1 % (42.0-52.0); Lymphocytes # 2.4 10^3/uL (0.8-4.8); Mean Corpuscular Hemoglobin 44.8 pg (28.0-34.0); Mean Corpuscular Volume 131.6 fL (80-94); Mean Platelet Volume 10.3 fL (7.4-10.4); Monocytes # 0.8 10^3/uL (0.2-0.9); Monocytes % 3.5 %; Neutrophils # 18.15 10^3/uL (1.8-7.7); Neutrophils % 82.6 %; Nucleated Red Blood Cells % 0 %; Platelet Count 378 10^3/cmm (130-400); Red Blood Count 3.35 10^6/uL (4.1-5.3); Red Cell Distribution Width 12.1 % (12.1-15.1)
[2020-04-25 10:10] LABS: Alanine Aminotransferase 13 U/L (0-41); Albumin Level 4.1 g/dL (3.5-5.2); Alkaline Phosphatase 91 IU/L (40-130); Anion Gap 12.9 (5-19); Aspartate Amino Transferase 27 U/L (0-40); Blood Urea Nitrogen 21 mg/dL (8-23); Calcium 8.9 mg/dL (8.5-10.5); Carbon Dioxide 25 mmol/L (22-29); Chloride 103 mmol/L (98-107); Glomerular Filtration Rate 84.4 mL/min (90-130); Glucose 85 mg/dL (65-115); Lactate Dehydrogenase 367 U/L (135-225); Osmolality Calculated 284 mOsm/kg (285-295); Potassium 4.9 mmol/L (3.5-5.1); Sodium 136 mmol/L (136-145); Total Bilirubin 0.5 mg/dL (0.15-1.2); Total Protein 7.1 g/dL (6.6-8.7)
--- NOTE | 2020-04-28 15:46 | ONC FU_ITS ---
Dr. Vincent Patient Follow-Up Note Patient: oJhn Tsai Unit #: [id number]: 1955 Dicatated By: Nghia Vincent M.D.Date of Visit:Apr 25, 2020 Onc Med Follow-up/Prog Note Chief Complaint: Polycythemia. History of Present Illness: This is a 64 year-old man with polycythemia rubra vera. It was initially diagnosed in April of 2008. At that time his hemoglobin was markedly elevated at 23.6 g with hematocrit 63%. He had a moderately elevated white count at 20,000, but the platelet count was normal. A JAK2 gene mutation study was positive for the JAK2 V617F mutation. He was initially managed with phlebotomies. He was later started on hydroxyurea after his platelet count had increased. Since then, he has continued to have a moderate leukocytosis and he also has continued to require phlebotomy occasionally, but his platelet counts have remained normal on hydroxyurea. He has otherwise been in good health. He has had no other medical illnesses, but during followup he has had symptoms of arterial insufficiency in the upper extremities. He also has had evidence of left ventricular hypertrophy. He is a nonsmoker. INTERIM HISTORY: During follow-up his white blood cell count had increased gradually, and he had been requiring phlebotomy more frequently. As of his visit in July 2017 his hydroxyurea dosage was increased to 1500 mg daily. During subsequent follow-up there was some decline in the white blood cell count and the platelet count, and his hemoglobin/hematocrit levels had remained in target range. He was last phlebotomized in January 2018. On 02/03/2019 he was seen for an unplanned visit, as he had developed evidence of arterial insufficiency in the left second and third fingers and his blood count had become significantly elevated with hemoglobin up to 18.5 g, white blood cell count 43,000, and platelet count 381,000. At that time he was phlebotomized, and his hydroxyurea dosage was increased to 1 g 3 times daily. In addition, he was started on cilostazol, but he was not able to tolerate it due to nausea and headache. During subsequent follow-up his blood counts decreased significantly. The hydroxyurea dosage was subsequently reduced to 500 mg 3 times daily, but as of 03/07/2019 I had increased it back up to 1 gm bid. 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 On 03/30/2019 he underwent excision of the left prepatellar bursa. Cultures grew Enterococcus faecalis. He was placed on antibiotic coverage with Augmentin. He continued hydroxyurea 1 g 3 times daily for the polycythemia. As of his follow-up visit on 10/27/2019 he continued hydroxyurea at 1000 mg twice a day on 2 days each week and 500 mg 3 times daily all other days. He then had some further dose adjustments, most recently to 500 mg 3 times a day twice weekly and 500 mg twice daily on all other days. He had also been referred to a mirror machine feeder and [place] after developing a skin ulceration on his left ankle. This apparently was felt to be due to arterial insufficiency, and he restarted treatment with cilostazol, but he again was not able to tolerate it due to GI side effects. He was taken off amlodipine due to swelling in the lower extremities. He is seen for a scheduled visit. He has been feeling pretty good generally. He has continued to show gradual healing of the skin ulcerations on his left ankle and foot. He has some fatigue, but his activity is normal. His ECOG score is 0. His appetite is good. He has no fever or night sweats. He has not had mouth sores. He has just occasional cough. He has no shortness of breath or chest pain. He has had a little nausea with his antibiotic. He has no other GI or complaints. He has pain in his left knee and ankle. He does not complain of headache or dizziness. He sometimes has numbness/tingling in his fingers. Medications: Childrens Aspirin 1 Tablet (of 81 mg) Tablet, chewable Oral daily on Every Other Day, Doxycycline Hyclate 1 Tablet Oral daily, Hydroxyurea (500 mg) Capsule Oral Take as Directed Allergies: Iodine Vital Signs: Performed on Apr 25, 2020 10:09 Height - 67.00 in Weight - 178.2 lbs (HIGH) BSA - 1.93 sq.m BMI - 27.91 Temperature - 99.8 F (HIGH) Pulse - 59 /min (LOW) Respiration - 18 /min BP - 147/84 mm(hg) (HIGH) Pain - 0 Fatigue - 0 Physical Examination: Constitutional - He looks good generally, Eyes - Sclerae nonicteric. Conjunctivae clear, ENMT - No lesions noted in the oral cavity, Hematologic/Lymphatic - No cervical, clavicular, or axillary adenopathy, Respiratory - Lungs are clear with good air movement bilaterally, Cardiovascular - Heart rhythm is regular. There is a II/ systolic murmur. There is no gallop or rub noted, Abdomen - Soft. Liver and spleen are not enlarged. There is no abdominal mass or ascites noted and there is no inguinal adenopathy, Extremities - No edema. He has good dorsalis pedis pulses bilaterally, Integumentary - The left middle finger appears well healed. There are healing ulcerations on the left ankle and foot, Neurologic - No focal neurologic deficits noted. Lab/Imaging: Test performed on Apr 25, 2020 08:56 LDH (Total) 367 U/L Sodium 136 mmol/L Potassium 4.9 mmol/L Chloride 103 mmol/L CO2 25 mmol/L Anion Gap 12.9 BUN 21 mg/dL Creatinine 0.9 mg/dL Cr Clearance (Est) 92.31 mL/min eGFR 84.4 mL/min Glucose 85 mg/dL Osmolality - Calculated 284 mOsm/kg Calcium 8.9 mg/dL Protein, Total 7.1 g/dL Albumin 4.1 g/dL Globulin 3.0 g/dL Bilirubin, Total 0.5 mg/dL ALT (SGPT) 13 U/L AST (SGOT) 27 U/L Alkaline Phosphatase 91 IU/L WBC 22.0 10 3/uL RBC 3.35 10 6/uL HGB 15.0 g/dL HCT 44.1 % MCV 131.6 fL MCH 44.8 pg MCHC 34.0 g/dL RDW 12.1 % Platelet Count 378 10 3/cmm MPV 10.3 fL Neutrophils 18.15 10 3/uL Lymphocytes 2.4 10 3/uL Monocytes 0.8 10 3/uL Eosinophils 0.2 10 3/uL Basophils 0.2 10 3/uL Neutrophil % 82.6 % Lymphocyte % 11.0 % Monocyte % 3.5 % Eosinophil % 0.9 % Basophils % 0.8 % NRBC % 0 % Problem List: 1. Polycythemia rubra vera, initially diagnosed in 2008. He has been on treatment with hydroxyurea and with phlebotomy, as needed. 2. During followup he has had problems associated with arterial insufficiency. 3. There was evidence on echocardiogram of left ventricular hypertrophy. 4. Hypertension. 5. 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 Cultures at that time grew Enterococcus faecalis. Problems Addressed with this Encounter and Plan: Patient with polycythemia rubra vera, initially diagnosed in 2008. He has been on treatment with hydroxyurea and with phlebotomy, as needed. During followup he has had problems associated with arterial insufficiency. I have suspected that the arterial insufficiency may be related to the polycythemia, as he also has had significant leukocytosis. As such, I had escalated his hydroxyurea dosage back in July 2017. During subsequent follow-up he required some additional dose adjustments, as his blood counts got down a little low. Over the past 6 months, his white blood cell count has again started to increase gradually. During that time he developed new skin ulcerations on the left leg which were felt to be related to arterial insufficiency. With his white blood cell count increasing, he will now increase his hydroxyurea dosage to 1000 mg twice daily. His blood counts will be monitored monthly. I will see him again in 3 months, or sooner as needed. Signed By: Nghia Vincent M.D. <<Signature on File>>
== END 2020-04-25 08:47 | disposition home or self-care (01) ==
LOC: ONCMED 08:49
PROVIDERS: PCP Family Medicine; Visit Provider Internal Medicine Medical Oncology
DX: D45 Polycythemia vera (principal); D72.829 Elevated white blood cell count, unspecified; I87.2 Venous insufficiency (chronic) (peripheral); L97.929 Non-pressure chronic ulcer of unspecified part of left lower leg with unspecified severity; I10 Essential (primary) hypertension; Z79.899 Other long term (current) drug therapy
CPT/HCPCS: 80053; 83615; 85025; 99214

== ENCOUNTER 2020-05-23 08:38 | Outpatient (CLI) | payer MEDICARE, OTHER, SELFPAY ==
[2020-05-23 09:27] LABS: Basophils # 0.1 10^3/uL (0.0-0.1); Basophils % 0.7 %; Eosinophils # 0.1 10^3/uL (0.0-0.8); Eosinophils % 0.7 %; Hematocrit 43.4 % (42.0-52.0); Hemoglobin 15.1 g/dL (11.7-16.6); Lymphocytes % 12.8 %; Mean Corpuscular HGB Conc 34.8 g/dL (30.0-36.0); Mean Corpuscular Hemoglobin 46.2 pg (28.0-34.0); Mean Corpuscular Volume 132.7 fL (80-94); Mean Platelet Volume 10.5 fL (7.4-10.4); Monocytes # 0.6 10^3/uL (0.2-0.9); Monocytes % 4.1 %; Neutrophils # 12.25 10^3/uL (1.8-7.7); Neutrophils % 80.6 %; Nucleated Red Blood Cells % 0 %; Platelet Count 294 10^3/cmm (130-400); Red Blood Count 3.27 10^6/uL (4.1-5.3); Red Cell Distribution Width 12.4 % (12.1-15.1); White Blood Count 15.2 10^3/uL (4.0-10.0)
== END 2020-05-23 08:39 | disposition home or self-care (01) ==
LOC: ONCMED 08:41
PROVIDERS: PCP Family Medicine; Visit Provider Internal Medicine Medical Oncology
DX: D45 Polycythemia vera (principal)
CPT/HCPCS: 85025

== ENCOUNTER 2020-06-27 09:47 | Outpatient (CLI) | payer MEDICARE, OTHER, SELFPAY ==
[2020-06-27 10:06] LABS: Basophils # 0.1 10^3/uL (0.0-0.1); Basophils % 0.6 %; Eosinophils # 0.1 10^3/uL (0.0-0.8); Eosinophils % 0.5 %; Hematocrit 42.2 % (42.0-52.0); Hemoglobin 14.5 g/dL (11.7-16.6); Lymphocytes # 1.8 10^3/uL (0.8-4.8); Lymphocytes % 13.3 %; Mean Corpuscular HGB Conc 34.4 g/dL (30.0-36.0); Mean Corpuscular Volume 131.1 fL (80-94); Mean Platelet Volume 10.1 fL (7.4-10.4); Monocytes # 0.6 10^3/uL (0.2-0.9); Monocytes % 4.1 %; Neutrophils % 80.8 %; Nucleated Red Blood Cells % 0 %; Platelet Count 301 10^3/cmm (130-400); Red Blood Count 3.22 10^6/uL (4.1-5.3); Red Cell Distribution Width 12.6 % (12.1-15.1); White Blood Count 13.7 10^3/uL (4.0-10.0)
== END 2020-06-27 09:48 | disposition home or self-care (01) ==
PROVIDERS: PCP Family Medicine; Visit Provider Internal Medicine Medical Oncology
DX: D45 Polycythemia vera (principal)
CPT/HCPCS: 85025

== ENCOUNTER 2020-07-25 14:13 | Outpatient (CLI) | payer MEDICARE, OTHER, SELFPAY ==
[2020-07-25 14:49] LABS: Basophils # 0.1 10^3/uL (0.0-0.1); Basophils % 0.5 %; Eosinophils # 0.1 10^3/uL (0.0-0.8); Eosinophils % 0.7 %; Hematocrit 38.6 % (42.0-52.0); Hemoglobin 13.5 g/dL (11.7-16.6); Lymphocytes # 1.5 10^3/uL (0.8-4.8); Lymphocytes % 9.9 %; Mean Corpuscular Hemoglobin 46.6 pg (28.0-34.0); Mean Corpuscular Volume 133.1 fL (80-94); Mean Platelet Volume 10.2 fL (7.4-10.4); Monocytes # 0.4 10^3/uL (0.2-0.9); Monocytes % 2.9 %; Neutrophils # 12.85 10^3/uL (1.8-7.7); Neutrophils % 84.9 %; Nucleated Red Blood Cells % 0 %; Platelet Count 299 10^3/cmm (130-400); Red Cell Distribution Width 12.7 % (12.1-15.1); White Blood Count 15.1 10^3/uL (4.0-10.0)
--- NOTE | 2020-07-29 13:23 | ONC FU_ITS ---
Dr. Vincent Patient Follow-Up Note Patient: John Tsia Unit #: [id number]: 1955 Dicatated By: Nghia Vincent M.D.Date of Visit:July 25, 2020 Onc Med Follow-up/Prog Note Chief Complaint: Polycythemia. History of Present Illness: This is a 65 year-old man with polycythemia rubra vera. It was initially diagnosed in April of 2008. At that time his hemoglobin was markedly elevated at 23.6 g with hematocrit 63%. He had a moderately elevated white count at 20,000, but the platelet count was normal. A JAK2 gene mutation study was positive for the JAK2 V617F mutation. He was initially managed with phlebotomies. He was later started on hydroxyurea after his platelet count had increased. Since then, he has continued to have a moderate leukocytosis and he also has continued to require phlebotomy occasionally, but his platelet counts have remained normal on hydroxyurea. He has otherwise been in good health. He has had no other medical illnesses, but during followup he has had symptoms of arterial insufficiency in the upper extremities. He also has had evidence of left ventricular hypertrophy. He is a nonsmoker. INTERIM HISTORY: During follow-up his white blood cell count had increased gradually, and he had been requiring phlebotomy more frequently. As of his visit in July 2017 his hydroxyurea dosage was increased to 1500 mg daily. During subsequent follow-up there was some decline in the white blood cell count and the platelet count, and his hemoglobin/hematocrit levels had remained in target range. He was last phlebotomized in January 2018. On 02/03/2019 he was seen for an unplanned visit, as he had developed evidence of arterial insufficiency in the left second and third fingers and his blood count had become significantly elevated with hemoglobin up to 18.5 g, white blood cell count 43,000, and platelet count 381,000. At that time he was phlebotomized, and his hydroxyurea dosage was increased to 1 g 3 times daily. In addition, he was started on cilostazol, but he was not able to tolerate it due to nausea and headache. During subsequent follow-up his blood counts decreased significantly. The hydroxyurea dosage was subsequently reduced to 500 mg 3 times daily, but as of 03/07/2019 I had increased it back up to 1 gm bid. 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 On 03/30/2019 he underwent excision of the left prepatellar bursa. Cultures grew Enterococcus faecalis. He was placed on antibiotic coverage with Augmentin. He continued hydroxyurea 1 g 3 times daily for the polycythemia. As of his follow-up visit on 10/27/2019 he continued hydroxyurea at 1000 mg twice a day on 2 days each week and 500 mg 3 times daily all other days. He then had some further dose adjustments, most recently to 500 mg 3 times a day twice weekly and 500 mg twice daily on all other days. He had also been referred to a separations scientist and [place] after developing a skin ulceration on his left ankle. This apparently was felt to be due to arterial insufficiency, and he restarted treatment with cilostazol, but he again was not able to tolerate it due to GI side effects. He was taken off amlodipine due to swelling in the lower extremities. As of his follow-up visit on 04/25/2020 his blood counts had become mildly elevated, and I did have him increase hydroxyurea to 1000 mg twice daily. During subsequent follow-up it was reduced to 1000 mg twice daily alternating with 1500 mg daily. He is seen for a scheduled visit. He has been feeling pretty good generally, though lately has been a little more rundown. It is most noticeable with the warmer weather. He also has noticed that his skin does not have as much oil, and he no longer sweats, even with activity. He has good appetite. He has not had fever. He has had no mouth sores. He has just occasional cough associated with sinus drainage. He does not complain of shortness of breath or chest pain. He still occasionally has nausea. He has no other GI or complaints. He has a little joint pain, trickling his shoulders. He occasionally has numbness. He says his left knee has continued healing, but he still has a sore on his left ankle. Medications: Childrens Aspirin 1 Tablet (of 81 mg) Tablet, chewable Oral daily on Every Other Day, Hydroxyurea (500 mg) Capsule Oral Take as Directed Allergies: Iodine Vital Signs: Performed on July 25, 2020 15:37 Height - 67.00 in Weight - 184.8 lbs (HIGH) BSA - 1.96 sq.m BMI - 28.94 Temperature - 99.5 F (HIGH) Pulse - 67 /min Respiration - 18 /min BP - 169/76 mm(hg) (HIGH) O2 Sat - 97 % Pain - 0 Fatigue - 6 Physical Examination: Constitutional - He looks good generally, Eyes - Sclerae nonicteric. Conjunctivae clear, ENMT - No lesions noted in the oral cavity, Hematologic/Lymphatic - No cervical, clavicular, or axillary adenopathy, Respiratory - Lungs are clear with good air movement bilaterally, Cardiovascular - Heart rhythm is regular. There is a II/ systolic murmur. There is no gallop or rub noted, Abdomen - Soft. Liver and spleen are not enlarged. There is no abdominal mass or ascites noted and there is no inguinal adenopathy, Extremities - Slight edema at the left ankle, Integumentary - There is a persistent skin ulceration on the left ankle, Neurologic - No focal neurologic deficits noted. Lab/Imaging: Test performed on July 25, 2020 14:33 WBC 15.1 10 3/uL RBC 2.90 10 6/uL HGB 13.5 g/dL HCT 38.6 % MCV 133.1 fL MCH 46.6 pg MCHC 35.0 g/dL RDW 12.7 % Platelet Count 299 10 3/cmm MPV 10.2 fL Neutrophils 12.85 10 3/uL Lymphocytes 1.5 10 3/uL Monocytes 0.4 10 3/uL Eosinophils 0.1 10 3/uL Basophils 0.1 10 3/uL Neutrophil % 84.9 % Lymphocyte % 9.9 % Monocyte % 2.9 % Eosinophil % 0.7 % Basophils % 0.5 % NRBC % 0 % Problem List: 1. Polycythemia rubra vera, initially diagnosed in 2008. He has been on treatment with hydroxyurea and with phlebotomy, as needed. 2. During followup he has had problems associated with arterial insufficiency. 3. There was evidence on echocardiogram of left ventricular hypertrophy. 4. Hypertension. 5. 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 Cultures at that time grew Enterococcus faecalis. Problems Addressed with this Encounter and Plan: Patient with polycythemia rubra vera, initially diagnosed in 2008. He has been on treatment with hydroxyurea and with phlebotomy, as needed. During followup he has had problems associated with arterial insufficiency. I have suspected that the arterial insufficiency may be related to the polycythemia, as he also has had significant leukocytosis. As such, I had escalated his hydroxyurea dosage back in July 2017. During subsequent follow-up he required some additional dose adjustments, as his blood counts then got down a little low. As of his follow-up visit in April 2020 his hydroxyurea dosage was escalated to 2000 mg twice daily, as his blood counts had been gradually increasing and he also had developed new skin ulcerations on his left leg. During subsequent follow-up, the dosage was tapered to 1000 mg twice daily alternating with 1500 mg daily. He has since then reported some increased fatigue and is hemoglobin/hematocrit levels are borderline low again. As such, his hydroxyurea dosage will be decreased to 1500 mg daily. Blood counts will be monitored monthly. I will see him again in 3 months. Signed By: Nghia Vincent M.D. <<Signature on File>>
== END 2020-07-25 14:14 | disposition home or self-care (01) ==
LOC: ONCMED 14:16
PROVIDERS: PCP Family Medicine; Visit Provider Internal Medicine Medical Oncology
DX: D45 Polycythemia vera (principal); I77.1 Stricture of artery; I51.7 Cardiomegaly; I10 Essential (primary) hypertension; Z86.19 Personal history of other infectious and parasitic diseases; Z79.899 Other long term (current) drug therapy
CPT/HCPCS: 85025; 99214

== ENCOUNTER 2020-08-22 08:49 | Outpatient (CLI) | payer MEDICARE, OTHER, SELFPAY ==
[2020-08-22 09:30] LABS: Basophils # 0.1 10^3/uL (0.0-0.1); Basophils % 0.5 %; Eosinophils # 0.1 10^3/uL (0.0-0.8); Eosinophils % 0.7 %; Hemoglobin 14.1 g/dL (11.7-16.6); Lymphocytes # 1.8 10^3/uL (0.8-4.8); Lymphocytes % 11.2 %; Mean Corpuscular HGB Conc 34.4 g/dL (30.0-36.0); Mean Corpuscular Hemoglobin 45.9 pg (28.0-34.0); Mean Corpuscular Volume 133.6 fL (80-94); Mean Platelet Volume 10.3 fL (7.4-10.4); Monocytes # 0.6 10^3/uL (0.2-0.9); Monocytes % 3.7 %; Neutrophils # 13.63 10^3/uL (1.8-7.7); Neutrophils % 82.7 %; Nucleated Red Blood Cells % 0 %; Platelet Count 327 10^3/cmm (130-400); Red Blood Count 3.07 10^6/uL (4.1-5.3); Red Cell Distribution Width 12.1 % (12.1-15.1); White Blood Count 16.5 10^3/uL (4.0-10.0)
== END 2020-08-22 08:50 | disposition home or self-care (01) ==
LOC: ONCMED 08:53
PROVIDERS: PCP Family Medicine; Visit Provider Internal Medicine Medical Oncology
DX: D45 Polycythemia vera (principal)
CPT/HCPCS: 36415; 85025

== ENCOUNTER 2020-09-26 08:28 | Outpatient (CLI) | payer MEDICARE, OTHER, SELFPAY ==
[2020-09-26 09:15] LABS: Basophils # 0.2 10^3/uL (0.0-0.1); Basophils % 0.8 %; Eosinophils # 0.2 10^3/uL (0.0-0.8); Eosinophils % 0.7 %; Hematocrit 42.9 % (42.0-52.0); Hemoglobin 14.7 g/dL (11.7-16.6); Lymphocytes # 1.8 10^3/uL (0.8-4.8); Lymphocytes % 8.9 %; Mean Corpuscular HGB Conc 34.3 g/dL (30.0-36.0); Mean Corpuscular Hemoglobin 45.7 pg (28.0-34.0); Mean Corpuscular Volume 133.2 fL (80-94); Mean Platelet Volume 10.1 fL (7.4-10.4); Monocytes # 0.7 10^3/uL (0.2-0.9); Monocytes % 3.6 %; Neutrophils # 17.33 10^3/uL (1.8-7.7); Neutrophils % 83.9 %; Nucleated Red Blood Cells % 0 %; Platelet Count 336 10^3/cmm (130-400); Red Blood Count 3.22 10^6/uL (4.1-5.3); Red Cell Distribution Width 11.9 % (12.1-15.1); White Blood Count 20.7 10^3/uL (4.0-10.0)
== END 2020-09-26 08:29 | disposition home or self-care (01) ==
LOC: ONCMED 08:31
PROVIDERS: PCP Family Medicine; Visit Provider Internal Medicine Medical Oncology
DX: D45 Polycythemia vera (principal)
CPT/HCPCS: 36415; 85025

== ENCOUNTER 2020-10-24 08:33 | Outpatient (CLI) | payer MEDICARE, OTHER, SELFPAY ==
[2020-10-24 09:39] LABS: Basophils # 0.1 10^3/uL (0.0-0.1); Basophils % 0.6 %; Eosinophils # 0.2 10^3/uL (0.0-0.8); Eosinophils % 0.7 %; Hematocrit 45.3 % (42.0-52.0); Hemoglobin 15.7 g/dL (11.7-16.6); Lymphocytes # 1.9 10^3/uL (0.8-4.8); Mean Corpuscular HGB Conc 34.7 g/dL (30.0-36.0); Mean Corpuscular Hemoglobin 44.9 pg (28.0-34.0); Mean Corpuscular Volume 129.4 fl (80-94); Monocytes # 0.8 10^3/uL (0.2-0.9); Monocytes % 3.4 %; Neutrophils # 20.63 10^3/uL (1.8-7.7); Neutrophils % 85.8 %; Nucleated Red Blood Cells % 0 %; Platelet Count 388 10^3/cmm (130-400); White Blood Count 24.1 10^3/uL (4.0-10.0)
[2020-10-24 09:57] LABS: Alanine Aminotransferase 14 U/L (0-41); Alkaline Phosphatase 89 IU/L (40-130); Anion Gap 15.6 (5-19); Aspartate Amino Transferase 21 U/L (0-40); Blood Urea Nitrogen 18 mg/dL (8-23); Calcium 8.9 mg/dL (8.5-10.5); Carbon Dioxide 23 mmol/L (22-29); Chloride 103 mmol/L (98-107); Globulin 2.7 g/dL (1.3-4.6); Glomerular Filtration Rate 96.4 mL/min (90-130); Glucose 102 mg/dL (65-115); Lactate Dehydrogenase 289 U/L (135-225); Osmolality Calculated 284 mOsm/kg (285-295); Potassium 5.6 mmol/L (3.5-5.1); Sodium 136 mmol/L (136-145); Total Bilirubin 0.4 mg/dL (0.15-1.2); Total Protein 6.7 g/dL (6.6-8.7)
== END 2020-10-24 08:34 | disposition home or self-care (01) ==
LOC: ONCMED 08:37
PROVIDERS: PCP Family Medicine; Visit Provider Internal Medicine Medical Oncology
DX: D45 Polycythemia vera (principal); I10 Essential (primary) hypertension; Z79.82 Long term (current) use of aspirin
CPT/HCPCS: 36415; 80053; 83615; 85025

== ENCOUNTER 2020-10-29 05:51 | Outpatient (CLI) | payer MEDICARE, OTHER, SELFPAY ==
--- NOTE | 2020-11-02 16:15 | ONC FU_ITS ---
Dr. Vincent Patient Follow-Up Note Patient: John Tsai Unit #: [id number]: 1955 Dicatated By: Nghia Vincent M.D.Date of Visit:Oct 29, 2020 Onc Med Follow-up/Prog Note Chief Complaint: Polycythemia. History of Present Illness: This is a 65 year-old man with polycythemia rubra vera. It was initially diagnosed in April of 2008. At that time his hemoglobin was markedly elevated at 23.6 g with hematocrit 63%. He had a moderately elevated white count at 20,000, but the platelet count was normal. A JAK2 gene mutation study was positive for the JAK2 V617F mutation. He was initially managed with phlebotomies. He was later started on hydroxyurea after his platelet count had increased. Since then, he has continued to have a moderate leukocytosis and he also has continued to require phlebotomy occasionally, but his platelet counts have remained normal on hydroxyurea. He has otherwise been in good health. He has had no other medical illnesses, but during followup he has had symptoms of arterial insufficiency in the upper extremities. He also has had evidence of left ventricular hypertrophy. He is a nonsmoker. INTERIM HISTORY: During follow-up his white blood cell count had increased gradually, and he had been requiring phlebotomy more frequently. As of his visit in July 2017 his hydroxyurea dosage was increased to 1500 mg daily. During subsequent follow-up there was some decline in the white blood cell count and the platelet count, and his hemoglobin/hematocrit levels had remained in target range. He was last phlebotomized in January 2018. On 02/03/2019 he was seen for an unplanned visit, as he had developed evidence of arterial insufficiency in the left second and third fingers and his blood count had become significantly elevated with hemoglobin up to 18.5 g, white blood cell count 43,000, and platelet count 381,000. At that time he was phlebotomized, and his hydroxyurea dosage was increased to 1 g 3 times daily. In addition, he was started on cilostazol, but he was not able to tolerate it due to nausea and headache. During subsequent follow-up his blood counts decreased significantly. The hydroxyurea dosage was subsequently reduced to 500 mg 3 times daily, but as of 03/07/2019 I had increased it back up to 1 gm bid. 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 On 03/30/2019 he underwent excision of the left prepatellar bursa. Cultures grew Enterococcus faecalis. He was placed on antibiotic coverage with Augmentin. He continued hydroxyurea 1 g 3 times daily for the polycythemia. As of his follow-up visit on 10/27/2019 he continued hydroxyurea at 1000 mg twice a day on 2 days each week and 500 mg 3 times daily all other days. He then had some further dose adjustments, most recently to 500 mg 3 times a day twice weekly and 500 mg twice daily on all other days. He had also been referred to a minister helper and [place] after developing a skin ulceration on his left ankle. This apparently was felt to be due to arterial insufficiency, and he restarted treatment with cilostazol, but he again was not able to tolerate it due to GI side effects. He was taken off amlodipine due to swelling in the lower extremities. As of his follow-up visit on 04/25/2020 his blood counts had become mildly elevated, and I did have him increase hydroxyurea to 1000 mg twice daily. During subsequent follow-up it was reduced to 1000 mg twice daily alternating with 1500 mg daily, and as of his follow-up visit in June 2020 he was further decreased to 1500 mg daily. He is seen for a scheduled visit. Has not been feeling as good generally. He has had some decline in his activity tolerance. He is still able to do some work, but he has to rest after a couple of hours. His ECOG score is 1. He has good appetite. He has not had fever or night sweats. He has had no mouth sores. He has no shortness of breath, cough, or chest pain. He occasionally has a little nausea. He has no other GI or complaints. He has some joint pain, mainly in the shoulders. He does not complain of headache or dizziness. He has some numbness in his feet, but it is intermittent. He still bruises pretty easily. Medications: Childrens Aspirin 1 Tablet (of 81 mg) Tablet, chewable Oral daily on Every Other Day, Hydroxyurea (500 mg) Capsule Oral Take as Directed Allergies: Iodine Vital Signs: Performed on Oct 29, 2020 14:35 Height - 67.00 in Weight - 177.6 lbs (LOW) BSA - 1.92 sq.m BMI - 27.82 Temperature - 99.3 F (HIGH) Pulse - 61 /min Respiration - 18 /min BP - 151/87 mm(hg) (HIGH) O2 Sat - 99 % Pain - 3 Fatigue - 6 Physical Examination: Constitutional - He looks pretty good generally, Eyes - Sclerae nonicteric. Conjunctivae clear, ENMT - No lesions noted in the oral cavity, Hematologic/Lymphatic - No cervical, clavicular, or axillary adenopathy, Respiratory - Lungs are clear with good air movement bilaterally, Cardiovascular - Heart rhythm is regular. There is a II/ systolic murmur. There is no gallop or rub noted, Abdomen - Soft. Liver and spleen are not enlarged. There is no abdominal mass or ascites noted and there is no inguinal adenopathy, Extremities - No edema, Neurologic - No focal neurologic deficits noted. Lab/Imaging: Test performed on Oct 24, 2020 09:30 LDH (Total) 289 U/L Sodium 136 mmol/L Potassium 5.6 mmol/L Chloride 103 mmol/L CO2 23 mmol/L Anion Gap 15.6 BUN 18 mg/dL Creatinine 0.8 mg/dL Cr Clearance (Est) 106.2400 mL/min eGFR 96.4 mL/min Glucose 102 mg/dL Osmolality - Calculated 284 mOsm/kg Calcium 8.9 mg/dL Protein, Total 6.7 g/dL Albumin 4.0 g/dL Globulin 2.7 g/dL Bilirubin, Total 0.4 mg/dL ALT (SGPT) 14 U/L AST (SGOT) 21 U/L Alkaline Phosphatase 89 IU/L WBC 24.1 10 3/uL RBC 3.50 10 6/uL HGB 15.7 g/dL HCT 45.3 % MCV 129.4 fl MCH 44.9 pg MCHC 34.7 g/dL RDW 12.0 % Platelet Count 388 10 3/cmm MPV 10.0 fL Neutrophils 20.63 10 3/uL Lymphocytes 1.9 10 3/uL Monocytes 0.8 10 3/uL Eosinophils 0.2 10 3/uL Basophils 0.1 10 3/uL Neutrophil % 85.8 % Lymphocyte % 8.0 % Monocyte % 3.4 % Eosinophil % 0.7 % Basophils % 0.6 % NRBC % 0 % Problem List: 1. Polycythemia rubra vera, initially diagnosed in 2008. He has been on treatment with hydroxyurea and with phlebotomy, as needed. 2. During followup he has had problems associated with arterial insufficiency. 3. There was evidence on echocardiogram of left ventricular hypertrophy. 4. Hypertension. 5. 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 Cultures at that time grew Enterococcus faecalis. Problems Addressed with this Encounter and Plan: Patient with polycythemia rubra vera, initially diagnosed in 2008. He has been on treatment with hydroxyurea and with phlebotomy, as needed. During followup he has had problems associated with arterial insufficiency. I have suspected that the arterial insufficiency may be related to the polycythemia, as he also has had significant leukocytosis. As such, I had escalated his hydroxyurea dosage back in July 2017. During subsequent follow-up he required some additional dose adjustments, as his blood counts then got down a little low. As of his follow-up visit in April 2020 his hydroxyurea dosage was escalated to 2000 mg twice daily, as his blood counts had been gradually increasing and he also had developed new skin ulcerations on his left leg. During follow-up his hydroxyurea dosage had been tapered gradually, but his hemoglobin/hematocrit levels are now slightly high again. He has persistent leukocytosis. His platelet count remains in normal range. He has been showing some gradual decline in his activity tolerance. I am going to try having him increase hydroxyurea to 1000 mg twice daily on Mondays and . He will continue a daily dosage of 1500 mg all other days. Blood counts will be monitored monthly. I will see him again in 3 months. Signed By: Nghia Vincent M.D. <<Signature on File>>
== END 2020-10-29 05:52 | disposition home or self-care (01) ==
LOC: ONCMED 05:53
PROVIDERS: PCP Family Medicine; Visit Provider Internal Medicine Medical Oncology
DX: D45 Polycythemia vera (principal); Z79.899 Other long term (current) drug therapy; Z79.82 Long term (current) use of aspirin
CPT/HCPCS: 99214

== ENCOUNTER 2020-11-29 12:03 | Outpatient (CLI) | payer MEDICARE, OTHER, SELFPAY ==
[2020-11-29 13:44] LABS: Basophils # 0.1 10^3/uL (0.0-0.1); Basophils % 0.5 %; Eosinophils # 0.1 10^3/uL (0.0-0.8); Eosinophils % 0.5 %; Hematocrit 40.6 % (42.0-52.0); Lymphocytes # 1.3 10^3/uL (0.8-4.8); Lymphocytes % 6.7 %; Mean Corpuscular HGB Conc 34.5 g/dL (30.0-36.0); Mean Corpuscular Hemoglobin 46.1 pg (28.0-34.0); Mean Corpuscular Volume 133.6 fl (80-94); Mean Platelet Volume 10.5 fL (7.4-10.4); Monocytes # 0.6 10^3/uL (0.2-0.9); Neutrophils # 17.54 10^3/uL (1.8-7.7); Neutrophils % 87.9 %; Nucleated Red Blood Cells % 0 %; Platelet Count 322 10^3/cmm (130-400); Red Blood Count 3.04 10^6/uL (4.1-5.3); Red Cell Distribution Width 13.3 % (12.1-15.1); White Blood Count 19.9 10^3/uL (4.0-10.0)
== END 2020-11-29 12:04 | disposition home or self-care (01) ==
LOC: ONCMED 12:07
PROVIDERS: PCP Family Medicine; Visit Provider Internal Medicine Medical Oncology
DX: D45 Polycythemia vera (principal)
CPT/HCPCS: 36415; 85025

== ENCOUNTER 2020-12-28 10:22 | Outpatient (CLI) | payer MEDICARE, OTHER, SELFPAY ==
[2020-12-28 11:16] LABS: Basophils # 0.2 10^3/uL (0.0-0.1); Basophils % 0.5 %; Eosinophils # 0.2 10^3/uL (0.0-0.8); Eosinophils % 0.5 %; Hematocrit 44.8 % (42.0-52.0); Hemoglobin 15.5 g/dL (11.7-16.6); Lymphocytes # 1.5 10^3/uL (0.8-4.8); Lymphocytes % 5.5 %; Mean Corpuscular HGB Conc 34.6 g/dL (30.0-36.0); Mean Corpuscular Hemoglobin 45.2 pg (28.0-34.0); Mean Corpuscular Volume 130.6 fl (80-94); Mean Platelet Volume 9.9 fL (7.4-10.4); Monocytes # 0.6 10^3/uL (0.2-0.9); Monocytes % 2.2 %; Neutrophils # 24.79 10^3/uL (1.8-7.7); Neutrophils % 89.7 %; Nucleated Red Blood Cells % 0 %; Platelet Count 402 10^3/cmm (130-400); Red Blood Count 3.43 10^6/uL (4.1-5.3); Red Cell Distribution Width 13.2 % (12.1-15.1); White Blood Count 27.7 10^3/uL (4.0-10.0)
== END 2020-12-28 10:23 | disposition home or self-care (01) ==
LOC: ONCMED 10:24
PROVIDERS: PCP Family Medicine; Visit Provider Internal Medicine Medical Oncology
DX: D45 Polycythemia vera (principal)
CPT/HCPCS: 36415; 85025

== ENCOUNTER 2021-01-29 08:49 | Outpatient (CLI) | payer MEDICARE, OTHER, SELFPAY ==
[2021-01-29 09:18] LABS: Basophils # 0.2 10^3/uL (0.0-0.1); Basophils % 0.6 %; Eosinophils # 0.2 10^3/uL (0.0-0.8); Eosinophils % 0.7 %; Hematocrit 44.2 % (42.0-52.0); Hemoglobin 15.6 g/dL (11.7-16.6); Lymphocytes # 2.3 10^3/uL (0.8-4.8); Lymphocytes % 8.4 %; Mean Corpuscular HGB Conc 35.3 g/dL (30.0-36.0); Mean Corpuscular Hemoglobin 45.2 pg (28.0-34.0); Mean Corpuscular Volume 128.1 fl (80-94); Mean Platelet Volume 10.1 fL (7.4-10.4); Monocytes # 0.9 10^3/uL (0.2-0.9); Monocytes % 3.3 %; Neutrophils # 23.64 10^3/uL (1.8-7.7); Neutrophils % 85.6 %; Nucleated Red Blood Cells % 0 %; Platelet Count 430 10^3/cmm (130-400); Red Blood Count 3.45 10^6/uL (4.1-5.3); Red Cell Distribution Width 12.6 % (12.1-15.1); White Blood Count 27.6 10^3/uL (4.0-10.0)
[2021-01-29 09:44] LABS: Alanine Aminotransferase 10 U/L (0-41); Albumin Level 4.4 g/dL (3.5-5.2); Alkaline Phosphatase 95 IU/L (40-130); Anion Gap 17.1 (5-19); Aspartate Amino Transferase 18 U/L (0-40); Blood Urea Nitrogen 20 mg/dL (8-23); Calcium 8.7 mg/dL (8.5-10.5); Carbon Dioxide 23 mmol/L (22-29); Chloride 102 mmol/L (98-107); Globulin 2.3 g/dL (1.3-4.6); Glomerular Filtration Rate 74.5 mL/min (90-130); Glucose 97 mg/dL (65-115); Lactate Dehydrogenase 286 U/L (135-225); Osmolality Calculated 287 mOsm/kg (285-295); Potassium 5.1 mmol/L (3.5-5.1); Sodium 137 mmol/L (136-145); Total Bilirubin 0.4 mg/dL (0.15-1.2); Total Protein 6.7 g/dL (6.6-8.7)
== END 2021-01-29 08:50 | disposition home or self-care (01) ==
LOC: ONCMED 08:52
PROVIDERS: PCP Family Medicine; Visit Provider Internal Medicine Medical Oncology
DX: D45 Polycythemia vera (principal)
CPT/HCPCS: 36415; 80053; 83615; 85025

== ENCOUNTER 2021-01-31 06:28 | Outpatient (CLI) | payer MEDICARE, OTHER, SELFPAY ==
--- NOTE | 2021-02-03 10:33 | ONC FU_ITS ---
Dr. Vincent Patient Follow-Up Note Patient: John Tsai Unit #: [id number]: 1955 Dicatated By: Nghia Vincent M.D.Date of Visit:Jan 31, 2021 Onc Med Follow-up/Prog Note Chief Complaint: Polycythemia. History of Present Illness: This is a 65 year-old man with polycythemia rubra vera. It was initially diagnosed in April of 2008. At that time his hemoglobin was markedly elevated at 23.6 g with hematocrit 63%. He had a moderately elevated white count at 20,000, but the platelet count was normal. A JAK2 gene mutation study was positive for the JAK2 [id number] mutation. He was initially managed with phlebotomies. He was later started on hydroxyurea after his platelet count had increased. Since then, he has continued to have a moderate leukocytosis and he also has continued to require phlebotomy occasionally, but his platelet counts have remained normal on hydroxyurea. He has otherwise been in good health. He has had no other medical illnesses, but during followup he has had symptoms of arterial insufficiency in the upper extremities. He also has had evidence of left ventricular hypertrophy. He is a nonsmoker. INTERIM HISTORY: During follow-up his white blood cell count had increased gradually, and he had been requiring phlebotomy more frequently. As of his visit in July 2017 his hydroxyurea dosage was increased to 1500 mg daily. During subsequent follow-up there was some decline in the white blood cell count and the platelet count, and his hemoglobin/hematocrit levels had remained in target range. He was last phlebotomized in January 2018. On 02/03/2019 he was seen for an unplanned visit, as he had developed evidence of arterial insufficiency in the left second and third fingers and his blood count had become significantly elevated with hemoglobin up to 18.5 g, white blood cell count 43,000, and platelet count 381,000. At that time he was phlebotomized, and his hydroxyurea dosage was increased to 1 g 3 times daily. In addition, he was started on cilostazol, but he was not able to tolerate it due to nausea and headache. During subsequent follow-up his blood counts decreased significantly. The hydroxyurea dosage was subsequently reduced to 500 mg 3 times daily, but as of 03/07/2019 I had increased it back up to 1 gm bid. 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 On 03/30/2019 he underwent excision of the left prepatellar bursa. Cultures grew Enterococcus faecalis. He was placed on antibiotic coverage with Augmentin. He continued hydroxyurea 1 g 3 times daily for the polycythemia. As of his follow-up visit on 10/27/2019 he continued hydroxyurea at 1000 mg twice a day on 2 days each week and 500 mg 3 times daily all other days. He then had some further dose adjustments, most recently to 500 mg 3 times a day twice weekly and 500 mg twice daily on all other days. He had also been referred to a investor relations coordinator and [place] after developing a skin ulceration on his left ankle. This apparently was felt to be due to arterial insufficiency, and he restarted treatment with cilostazol, but he again was not able to tolerate it due to GI side effects. He was taken off amlodipine due to swelling in the lower extremities. As of his follow-up visit on 04/25/2020 his blood counts had become mildly elevated, and I did have him increase hydroxyurea to 1000 mg twice daily. During subsequent follow-up it was reduced to 1000 mg twice daily alternating with 1500 mg daily, and as of his follow-up visit in June 2020 he was further decreased to 1500 mg daily. As of his follow-up visit in September 2020 the daily dosage of hydroxyurea was increased to 2000 mg on Mondays and . He is seen for a follow-up visit. Since his visit in September he had decided on his own to increase the daily hydroxyurea to 2000 mg alternating with 1500 mg. He does have some fatigue, and he says he gives out pretty easily. He is able to do light work. ECOG score is 1. He has good appetite. He has no fever or night sweats. He has had no mouth sores. He occasionally has cough. He does not complain of shortness of breath or chest pain. He reports having occasional nausea. He has no other GI or complaints. He has some joint pain, especially in the shoulders, but it is tolerable. He does not complain of headache or dizziness. He has a little numbness in the hands and feet, but it is intermittent. Medications: Childrens Aspirin 1 Tablet (of 81 mg) Tablet, chewable Oral daily on Every Other Day, Hydroxyurea (500 mg) Capsule Oral Take as Directed Allergies: Iodine Vital Signs: Performed on Jan 31, 2021 13:14 Height - 67.00 in Weight - 177.2 lbs (LOW) BSA - 1.92 sq.m BMI - 27.75 Temperature - 99.8 F (HIGH) Pulse - 60 /min Respiration - 18 /min BP - 159/70 mm(hg) (HIGH) O2 Sat - 98 % Pain - 0 Fatigue - 3 Physical Examination: Constitutional - He looks pretty good generally, Eyes - Sclerae nonicteric. Conjunctivae clear, ENMT - No lesions noted in the oral cavity, Hematologic/Lymphatic - No cervical, clavicular, or axillary adenopathy, Respiratory - Lungs are clear with good air movement bilaterally, Cardiovascular - Heart rhythm is regular. There is a II/ systolic murmur. There is no gallop or rub noted, Abdomen - Soft. Liver and spleen are not enlarged. There is no abdominal mass or ascites noted and there is no inguinal adenopathy, Extremities - No edema, Neurologic - No focal neurologic deficits noted. Lab/Imaging: Test performed on Jan 29, 2021 09:03 LDH (Total) 286 U/L Sodium 137 mmol/L Potassium 5.1 mmol/L Chloride 102 mmol/L CO2 23 mmol/L Anion Gap 17.1 BUN 20 mg/dL Creatinine 1.0 mg/dL Cr Clearance (Est) 81.6800 mL/min eGFR 74.5 mL/min Glucose 97 mg/dL Osmolality - Calculated 287 mOsm/kg Calcium 8.7 mg/dL Protein, Total 6.7 g/dL Albumin 4.4 g/dL Globulin 2.3 g/dL Bilirubin, Total 0.4 mg/dL ALT (SGPT) 10 U/L AST (SGOT) 18 U/L Alkaline Phosphatase 95 IU/L WBC 27.6 10 3/uL RBC 3.45 10 6/uL HGB 15.6 g/dL HCT 44.2 % MCV 128.1 fl MCH 45.2 pg MCHC 35.3 g/dL RDW 12.6 % Platelet Count 430 10 3/cmm MPV 10.1 fL Neutrophils 23.64 10 3/uL Lymphocytes 2.3 10 3/uL Monocytes 0.9 10 3/uL Eosinophils 0.2 10 3/uL Basophils 0.2 10 3/uL Neutrophil % 85.6 % Lymphocyte % 8.4 % Monocyte % 3.3 % Eosinophil % 0.7 % Basophils % 0.6 % NRBC % 0 % Problem List: 1. Polycythemia rubra vera, initially diagnosed in 2008. He has been on treatment with hydroxyurea and with phlebotomy, as needed. 2. During followup he has had problems associated with arterial insufficiency. 3. There was evidence on echocardiogram of left ventricular hypertrophy. 4. Hypertension. 5. 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 Cultures at that time grew Enterococcus faecalis. Problems Addressed with this Encounter and Plan: Patient with polycythemia rubra vera, initially diagnosed in 2008. He has been on treatment with hydroxyurea and with phlebotomy, as needed. During followup he has had problems associated with arterial insufficiency. I have suspected that the arterial insufficiency may be related to the polycythemia, as he also has had significant leukocytosis. As such, I had escalated his hydroxyurea dosage back in July 2017. During subsequent follow-up he required some additional dose adjustments, as his blood counts then got down a little low. As of his follow-up visit in April 2020 his hydroxyurea dosage was escalated to 2000 mg twice daily, as his blood counts had been gradually increasing and he also had developed new skin ulcerations on his left leg. During follow-up his hydroxyurea dosage had been tapered gradually, but his hemoglobin/hematocrit levels are now slightly high again. He has persistent leukocytosis. His platelet count remains in normal range. He has been showing some gradual decline in his activity tolerance. As of September 2020 the hydroxyurea dosage was increased to 2000 mg on Mondays and . During subsequent follow-up he had further increased it to 2000 mg alternating with 1500 mg daily. His hemoglobin/hematocrit levels at this point are just borderline high. White blood cell count remains moderately elevated but stable, and his platelet count is also now slightly elevated. At least for now he will continue hydroxyurea at the same dosage. Blood counts will be monitored monthly. He will be phlebotomized as needed. I will tentatively plan a follow-up visit in 3 months. Signed By: Nghia Vincent M.D. <<Signature on File>>
== END 2021-01-31 06:29 | disposition home or self-care (01) ==
LOC: ONCMED 06:31
PROVIDERS: PCP Family Medicine; Visit Provider Internal Medicine Medical Oncology
DX: D45 Polycythemia vera (principal); I77.1 Stricture of artery; I51.7 Cardiomegaly; I10 Essential (primary) hypertension; Z86.19 Personal history of other infectious and parasitic diseases; Z79.899 Other long term (current) drug therapy
CPT/HCPCS: 99214

== ENCOUNTER 2021-02-26 14:44 | Outpatient (CLI) | payer MEDICARE, OTHER, SELFPAY ==
[2021-02-26 15:17] LABS: Basophils # 0.1 10^3/uL (0.0-0.1); Basophils % 0.6 %; Eosinophils # 0.2 10^3/uL (0.0-0.8); Eosinophils % 0.9 %; Hematocrit 43.7 % (42.0-52.0); Hemoglobin 15.4 g/dL (11.7-16.6); Lymphocytes # 2.1 10^3/uL (0.8-4.8); Lymphocytes % 8.9 %; Mean Corpuscular HGB Conc 35.2 g/dL (30.0-36.0); Mean Corpuscular Volume 130.4 fl (80-94); Mean Platelet Volume 10.2 fL (7.4-10.4); Monocytes # 0.8 10^3/uL (0.2-0.9); Monocytes % 3.3 %; Neutrophils # 19.63 10^3/uL (1.8-7.7); Neutrophils % 85.2 %; Nucleated Red Blood Cells % 0 %; Platelet Count 356 10^3/cmm (130-400); Red Blood Count 3.35 10^6/uL (4.1-5.3); Red Cell Distribution Width 11.9 % (12.1-15.1)
[2021-02-26 15:53] LABS: Alanine Aminotransferase 15 U/L (0-41); Albumin Level 4.1 g/dL (3.5-5.2); Alkaline Phosphatase 91 IU/L (40-130); Aspartate Amino Transferase 22 U/L (0-40); Blood Urea Nitrogen 24 mg/dL (8-23); Calcium 8.6 mg/dL (8.5-10.5); Carbon Dioxide 22 mmol/L (22-29); Chloride 102 mmol/L (98-107); Globulin 2.8 g/dL (1.3-4.6); Glomerular Filtration Rate 60.4 mL/min (90-130); Glucose 96 mg/dL (65-115); Osmolality Calculated 288 mOsm/kg (285-295); Sodium 137 mmol/L (136-145); Total Bilirubin 0.3 mg/dL (0.15-1.2); Total Protein 6.9 g/dL (6.6-8.7)
[2021-02-26 15:58] LABS: Anion Gap 17.5 (5-19); Lactate Dehydrogenase 269 U/L (135-225); Potassium 4.5 mmol/L (3.5-5.1)
== END 2021-02-26 14:45 | disposition home or self-care (01) ==
LOC: ONCMED 14:54
PROVIDERS: PCP Family Medicine; Visit Provider Internal Medicine Medical Oncology
DX: D45 Polycythemia vera (principal)
CPT/HCPCS: 36415; 80053; 83615; 85025

== ENCOUNTER 2021-03-27 08:28 | Outpatient (CLI) | payer MEDICARE, OTHER, SELFPAY ==
[2021-03-27 08:58] LABS: Basophils # 0.2 10^3/uL (0.0-0.1); Basophils % 0.6 %; Eosinophils # 0.2 10^3/uL (0.0-0.8); Eosinophils % 0.8 %; Hematocrit 47.2 % (42.0-52.0); Hemoglobin 16.8 g/dL (11.7-16.6); Lymphocytes # 2.2 10^3/uL (0.8-4.8); Lymphocytes % 9.4 %; Mean Corpuscular HGB Conc 35.6 g/dL (30.0-36.0); Mean Corpuscular Hemoglobin 46.4 pg (28.0-34.0); Mean Corpuscular Volume 130.4 fl (80-94); Mean Platelet Volume 9.9 fL (7.4-10.4); Monocytes # 0.8 10^3/uL (0.2-0.9); Monocytes % 3.3 %; Neutrophils # 19.99 10^3/uL (1.8-7.7); Neutrophils % 84.6 %; Nucleated Red Blood Cells % 0 %; Platelet Count 396 10^3/cmm (130-400); Red Blood Count 3.62 10^6/uL (4.1-5.3); Red Cell Distribution Width 12.1 % (12.1-15.1); White Blood Count 23.6 10^3/uL (4.0-10.0)
[2021-03-27 09:17] LABS: Alanine Aminotransferase 14 U/L (0-41); Albumin Level 4.3 g/dL (3.5-5.2); Alkaline Phosphatase 100 IU/L (40-130); Blood Urea Nitrogen 20 mg/dL (8-23); Calcium 9.6 mg/dL (8.5-10.5); Carbon Dioxide 24 mmol/L (22-29); Chloride 101 mmol/L (98-107); Globulin 3.1 g/dL (1.3-4.6); Glomerular Filtration Rate 84.2 mL/min (90-130); Glucose 96 mg/dL (65-115); Osmolality Calculated 286 mOsm/kg (285-295); Sodium 137 mmol/L (136-145); Total Bilirubin 0.4 mg/dL (0.15-1.2); Total Protein 7.4 g/dL (6.6-8.7)
[2021-03-27 09:23] LABS: Anion Gap 16.3 (5-19); Aspartate Amino Transferase 27 U/L (0-40); Lactate Dehydrogenase 331 U/L (135-225); Potassium 4.3 mmol/L (3.5-5.1)
== END 2021-03-27 08:29 | disposition home or self-care (01) ==
LOC: ONCMED 08:31
PROVIDERS: PCP Family Medicine; Visit Provider Internal Medicine Medical Oncology
DX: D45 Polycythemia vera (principal)
CPT/HCPCS: 36415; 80053; 83615; 85025

== ENCOUNTER 2021-03-29 06:32 | Outpatient (CLI) | payer MEDICARE, OTHER, SELFPAY | END 2021-03-29 06:33 | disposition home or self-care (01) | LOC: ONCMED 06:32 | PROVIDERS: PCP Family Medicine; Visit Provider Internal Medicine Medical Oncology | DX: D45 Polycythemia vera (principal); Z79.899 Other long term (current) drug therapy | CPT/HCPCS: 99195 ==

== ENCOUNTER 2021-04-24 08:55 | Outpatient (CLI) | payer MEDICARE, OTHER, SELFPAY ==
[2021-04-24 09:36] LABS: Basophils # 0.2 10^3/uL (0.0-0.1); Basophils % 0.8 %; Eosinophils # 0.2 10^3/uL (0.0-0.8); Eosinophils % 0.8 %; Hematocrit 45.8 % (42.0-52.0); Hemoglobin 16.1 g/dL (11.7-16.6); Lymphocytes # 2.1 10^3/uL (0.8-4.8); Lymphocytes % 9.8 %; Mean Corpuscular HGB Conc 35.2 g/dL (30.0-36.0); Mean Corpuscular Hemoglobin 45.9 pg (28.0-34.0); Mean Corpuscular Volume 130.5 fl (80-94); Mean Platelet Volume 10.3 fL (7.4-10.4); Monocytes # 0.7 10^3/uL (0.2-0.9); Monocytes % 3.5 %; Neutrophils # 17.89 10^3/uL (1.8-7.7); Nucleated Red Blood Cells % 0 %; Platelet Count 353 10^3/cmm (130-400); Red Blood Count 3.51 10^6/uL (4.1-5.3); Red Cell Distribution Width 12.4 % (12.1-15.1); White Blood Count 21.3 10^3/uL (4.0-10.0)
== END 2021-04-24 08:56 | disposition home or self-care (01) ==
PROVIDERS: PCP Family Medicine; Visit Provider Internal Medicine Medical Oncology
DX: D45 Polycythemia vera (principal)
CPT/HCPCS: 36415; 85025

== ENCOUNTER 2021-04-29 10:16 | Outpatient (CLI) | payer MEDICARE, OTHER, SELFPAY ==
[2021-04-29 11:05] LABS: Alanine Aminotransferase 12 U/L (0-41); Albumin Level 4.7 g/dL (3.5-5.2); Alkaline Phosphatase 97 IU/L (40-130); Anion Gap 16.5 (5-19); Aspartate Amino Transferase 22 U/L (0-40); Blood Urea Nitrogen 19 mg/dL (8-23); Calcium 9.8 mg/dL (8.5-10.5); Carbon Dioxide 25 mmol/L (22-29); Chloride 99 mmol/L (98-107); Globulin 2.4 g/dL (1.3-4.6); Glomerular Filtration Rate 84.2 mL/min (90-130); Glucose 114 mg/dL (65-115); Lactate Dehydrogenase 263 U/L (135-225); Osmolality Calculated 285 mOsm/kg (285-295); Potassium 4.5 mmol/L (3.5-5.1); Sodium 136 mmol/L (136-145); Total Bilirubin 0.4 mg/dL (0.15-1.2); Total Protein 7.1 g/dL (6.6-8.7)
== END 2021-04-29 10:17 | disposition home or self-care (01) ==
PROVIDERS: PCP Family Medicine; Visit Provider Internal Medicine Medical Oncology
DX: D45 Polycythemia vera (principal); Z79.899 Other long term (current) drug therapy
CPT/HCPCS: 36415; 80053; 83615

== ENCOUNTER 2021-05-22 08:27 | Outpatient (CLI) | payer MEDICARE, OTHER, SELFPAY ==
[2021-05-22 08:52] LABS: Basophils # 0.1 10^3/uL (0.0-0.1); Basophils % 0.7 %; Eosinophils # 0.1 10^3/uL (0.0-0.8); Eosinophils % 0.8 %; Hematocrit 45.1 % (42.0-52.0); Hemoglobin 15.7 g/dL (11.7-16.6); Lymphocytes # 1.9 10^3/uL (0.8-4.8); Lymphocytes % 11.9 %; Mean Corpuscular HGB Conc 34.8 g/dL (30.0-36.0); Mean Corpuscular Hemoglobin 44.4 pg (28.0-34.0); Mean Corpuscular Volume 127.4 fl (80-94); Mean Platelet Volume 10.7 fL (7.4-10.4); Monocytes # 0.5 10^3/uL (0.2-0.9); Monocytes % 3.2 %; Neutrophils # 12.87 10^3/uL (1.8-7.7); Neutrophils % 82.7 %; Nucleated Red Blood Cells % 0 %; Platelet Count 199 10^3/cmm (130-400); Red Blood Count 3.54 10^6/uL (4.1-5.3); Red Cell Distribution Width 12.8 % (12.1-15.1); White Blood Count 15.6 10^3/uL (4.0-10.0)
[2021-05-22 09:17] LABS: Alanine Aminotransferase 12 U/L (0-41); Albumin Level 4.3 g/dL (3.5-5.2); Alkaline Phosphatase 80 IU/L (40-130); Aspartate Amino Transferase 19 U/L (0-40); Blood Urea Nitrogen 17 mg/dL (8-23); Calcium 9.2 mg/dL (8.5-10.5); Carbon Dioxide 25 mmol/L (22-29); Chloride 102 mmol/L (98-107); Globulin 2.5 g/dL (1.3-4.6); Glomerular Filtration Rate 74.3 mL/min (90-130); Glucose 107 mg/dL (65-115); Osmolality Calculated 284 mOsm/kg (285-295); Sodium 136 mmol/L (136-145); Total Bilirubin 0.5 mg/dL (0.15-1.2); Total Protein 6.8 g/dL (6.6-8.7)
[2021-05-22 09:22] LABS: Anion Gap 13.3 (5-19); Lactate Dehydrogenase 236 U/L (135-225); Potassium 4.3 mmol/L (3.5-5.1)
--- NOTE | 2021-05-29 20:49 | ONC FU_ITS ---
Natali Sánchez Progress Note Patient: John Tsai Unit #: [id number]: 1955 Dicatated By: Natali Sánchez N.P.Date of Visit:May 22, 2021 Onc MED Follow-up/Prog Note Chief Complaint: Polycythemia. History of Present Illness: This is a 65 year-old man with polycythemia rubra vera. It was initially diagnosed in April of 2008. At that time his hemoglobin was markedly elevated at 23.6 g with hematocrit 63%. He had a moderately elevated white count at 20,000, but the platelet count was normal. A JAK2 gene mutation study was positive for the JAK2 V617F mutation. He was initially managed with phlebotomies. He was later started on hydroxyurea after his platelet count had increased. Since then, he has continued to have a moderate leukocytosis and he also has continued to require phlebotomy occasionally, but his platelet counts have remained normal on hydroxyurea. He has otherwise been in good health. He has had no other medical illnesses, but during followup he has had symptoms of arterial insufficiency in the upper extremities. He also has had evidence of left ventricular hypertrophy. He is a nonsmoker. INTERIM HISTORY: During follow-up his white blood cell count had increased gradually, and he had been requiring phlebotomy more frequently. As of his visit in July 2017 his hydroxyurea dosage was increased to 1500 mg daily. During subsequent follow-up there was some decline in the white blood cell count and the platelet count, and his hemoglobin/hematocrit levels had remained in target range. He was last phlebotomized in January 2018. On 02/03/2019 he was seen for an unplanned visit, as he had developed evidence of arterial insufficiency in the left second and third fingers and his blood count had become significantly elevated with hemoglobin up to 18.5 g, white blood cell count 43,000, and platelet count 381,000. At that time he was phlebotomized, and his hydroxyurea dosage was increased to 1 g 3 times daily. In addition, he was started on cilostazol, but he was not able to tolerate it due to nausea and headache. During subsequent follow-up his blood counts decreased significantly. The hydroxyurea dosage was subsequently reduced to 500 mg 3 times daily, but as of 03/07/2019 I had increased it back up to 1 gm bid. 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 On 03/30/2019 he underwent excision of the left prepatellar bursa. Cultures grew Enterococcus faecalis. He was placed on antibiotic coverage with Augmentin. He continued hydroxyurea 1 g 3 times daily for the polycythemia. As of his follow-up visit on 10/27/2019 he continued hydroxyurea at 1000 mg twice a day on 2 days each week and 500 mg 3 times daily all other days. He then had some further dose adjustments, most recently to 500 mg 3 times a day twice weekly and 500 mg twice daily on all other days. He had also been referred to a raymond mill operator and [place] after developing a skin ulceration on his left ankle. This apparently was felt to be due to arterial insufficiency, and he restarted treatment with cilostazol, but he again was not able to tolerate it due to GI side effects. He was taken off amlodipine due to swelling in the lower extremities. As of his follow-up visit on 04/25/2020 his blood counts had become mildly elevated, and I did have him increase hydroxyurea to 1000 mg twice daily. During subsequent follow-up it was reduced to 1000 mg twice daily alternating with 1500 mg daily, and as of his follow-up visit in June 2020 he was further decreased to 1500 mg daily. As of his follow-up visit in September 2020 the daily dosage of hydroxyurea was increased to 2000 mg on Mondays and . He is seen for a follow-up visit. He is currently taking hydroxyurea at 1000 mg twice daily and tolerating it well. He continues to have mild fatigue. His appetite has been good. He denies fever, chills, night sweats. No mouth sores or sore throat. No shortness of breath, cough, chest pain. No problems with GI or . No joint or bone pain. No headaches or dizziness. Review Of Symptoms: see above. Past Medical History: Hypertension Past Surgical History: Excision of mast on left knee Skin lesion biopsy lateral left anle in 2017 Allergies: Iodine Medications: Childrens Aspirin 1 Tablet (of 81 mg) Tablet, chewable Oral daily on Every Other Day Hydroxyurea (500 mg) Capsule Oral Take as Directed Family History: There is no documented family history. 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 Mr. Tsai has never smoked. He has no history of drinking. Mr. Tsai reports the following support systems: lives with spouse, significant other, family, or friends, lives in own house, supportive family/friends willing to assist with needs, and adequate transportation available for expected visits. His diet consists of regular meals. He indicates his activity level as: daily activities. Physical Examination: Performed on May 22, 2021 10:13: Height - 67.00 in, BP - 162/92 mm(hg) (HIGH), Performed on May 22, 2021 10:12: Height - 67.00 in, Weight - 182.0 lbs (HIGH), BSA - 1.94 sq.m, BMI - 28.51, Temperature - 97.7 F (LOW), Pulse - 59 /min (LOW), Respiration - 16 /min, BP - 173/91 mm(hg) (HIGH), O2 Sat - 99 %, Pain - 0, and Fatigue - 3. Performance Status: 1 - No physically strenuous activity, but ambulatory and able to carry out light or sedentary work (e.g. office work, light house work). (ECOG) Constitutional Alert, cooperative, oriented. Mood and affect appropriate. Appears close to chronological age. Well nourished. Well developed. Head Normocephalic; no scars. Hematologic/Lymphatic No petechiae or purpura. No tender or palpable lymph nodes in the cervical, supraclavicular, axillary or inguinal area. Respiratory Lungs are clear to auscultation without rhonchi or wheezing. Cardiovascular Regular rate and rhythm of heart without murmurs, gallops or rubs. Abdomen Non-tender, non-distended, no masses, ascites or hepatosplenomegaly. Good bowel sounds. No guarding or rebound tenderness. Musculoskeletal No tenderness or swelling, normal range of motion without obvious weakness. Psychiatric Alert and oriented times three. Coherent speech. Verbalizes understanding of our discussions today. Laboratory: Test performed on May 22, 2021 08:45 LDH (Total) 236 U/L Sodium 136 mmol/L Potassium 4.3 mmol/L Chloride 102 mmol/L CO2 25 mmol/L Anion Gap 13.3 BUN 17 mg/dL Creatinine 1.0 mg/dL Cr Clearance (Est) 82.56 mL/min eGFR 74.3 mL/min Glucose 107 mg/dL Osmolality - Calculated 284 mOsm/kg Calcium 9.2 mg/dL Protein, Total 6.8 g/dL Albumin 4.3 g/dL Globulin 2.5 g/dL Bilirubin, Total 0.5 mg/dL ALT (SGPT) 12 U/L AST (SGOT) 19 U/L Alkaline Phosphatase 80 IU/L WBC 15.6 10 3/uL RBC 3.54 10 6/uL HGB 15.7 g/dL HCT 45.1 % MCV 127.4 fl MCH 44.4 pg MCHC 34.8 g/dL RDW 12.8 % Platelet Count 199 10 3/cmm MPV 10.7 fL Neutrophils 12.87 10 3/uL Lymphocytes 1.9 10 3/uL Monocytes 0.5 10 3/uL Eosinophils 0.1 10 3/uL Basophils 0.1 10 3/uL Neutrophil % 82.7 % Lymphocyte % 11.9 % Monocyte % 3.2 % Eosinophil % 0.8 % Basophils % 0.7 % NRBC % 0 % Impression: 1. Polycythemia rubra vera, initially diagnosed in 2008. He has been on treatment with hydroxyurea and with phlebotomy, as needed. 2. During followup he has had problems associated with arterial insufficiency. 3. There was evidence on echocardiogram of left ventricular hypertrophy. 4. Hypertension. 5. 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 Cultures at that time grew Enterococcus faecalis. Plan: Patient with polycythemia rubra vera, initially diagnosed in 2008. He has been on treatment with hydroxyurea and with phlebotomy, as needed. During followup he has had problems associated with arterial insufficiency. I have suspected that the arterial insufficiency may be related to the polycythemia, as he also has had significant leukocytosis. As such, I had escalated his hydroxyurea dosage back in July 2017. During subsequent follow-up he required some additional dose adjustments, as his blood counts then got down a little low. As of his follow-up visit in April 2020 his hydroxyurea dosage was escalated to 2000 mg twice daily, as his blood counts had been gradually increasing and he also had developed new skin ulcerations on his left leg. During follow-up his hydroxyurea dosage had been tapered gradually, but his hemoglobin/hematocrit levels are now slightly high again. He has persistent leukocytosis. His platelet count remains in normal range. He has been showing some gradual decline in his activity tolerance. As of September 2020 the hydroxyurea dosage was increased to 2000 mg on Mondays and . During subsequent follow-up he had further increased it to 2000 mg alternating with 1500 mg daily. Patient presents today for follow-up. He has increased his hydroxyurea to 2000 mg daily. His hemoglobin is 15.7 his hematocrit is 45.1, and his platelet count is 199,000. Blood counts will be monitored monthly. He will be phlebotomized as needed. Follow-up visit in 3 months. Signed By: Natali Sánchez N.P. <<Signature on File>>
== END 2021-05-22 08:28 | disposition home or self-care (01) ==
PROVIDERS: PCP Family Medicine; Visit Provider Nurse Practitioner Family
DX: D45 Polycythemia vera (principal); I10 Essential (primary) hypertension; Z79.899 Other long term (current) drug therapy
CPT/HCPCS: 36415; 80053; 83615; 85025; 99214

== ENCOUNTER 2021-06-26 08:06 | Outpatient (CLI) | payer MEDICARE, OTHER, SELFPAY ==
[2021-06-26 08:49] LABS: Basophils # 0.1 10^3/uL (0.0-0.1); Basophils % 0.6 %; Eosinophils # 0.1 10^3/uL (0.0-0.8); Eosinophils % 0.6 %; Hematocrit 43.3 % (42.0-52.0); Hemoglobin 15.1 g/dL (11.7-16.6); Lymphocytes # 1.5 10^3/uL (0.8-4.8); Lymphocytes % 11.8 %; Mean Corpuscular HGB Conc 34.9 g/dL (30.0-36.0); Mean Corpuscular Hemoglobin 45.6 pg (28.0-34.0); Mean Corpuscular Volume 130.8 fl (80-94); Mean Platelet Volume 9.9 fL (7.4-10.4); Monocytes # 0.4 10^3/uL (0.2-0.9); Monocytes % 3.4 %; Neutrophils # 10.58 10^3/uL (1.8-7.7); Neutrophils % 82.7 %; Nucleated Red Blood Cells % 0 %; Platelet Count 305 10^3/cmm (130-400); Red Blood Count 3.31 10^6/uL (4.1-5.3); Red Cell Distribution Width 14.2 % (12.1-15.1); White Blood Count 12.8 10^3/uL (4.0-10.0)
[2021-06-26 09:08] LABS: Alanine Aminotransferase < 5 U/L (0-41); Albumin Level 4.5 g/dL (3.5-5.2); Alkaline Phosphatase 100 IU/L (40-130); Aspartate Amino Transferase 29 U/L (0-40); Blood Urea Nitrogen 19 mg/dL (8-23); Calcium 8.9 mg/dL (8.5-10.5); Carbon Dioxide 28 mmol/L (22-29); Chloride 102 mmol/L (98-107); Globulin 3.3 g/dL (1.3-4.6); Glomerular Filtration Rate 74.3 mL/min (90-130); Glucose 114 mg/dL (65-115); Osmolality Calculated 289 mOsm/kg (285-295); Sodium 138 mmol/L (136-145); Total Bilirubin 0.5 mg/dL (0.15-1.2); Total Protein 7.8 g/dL (6.6-8.7)
[2021-06-26 09:12] LABS: Anion Gap 12.8 (5-19); Lactate Dehydrogenase 314 U/L (135-225); Potassium 4.8 mmol/L (3.5-5.1)
== END 2021-06-26 08:07 | disposition home or self-care (01) ==
PROVIDERS: PCP Family Medicine; Visit Provider Internal Medicine Medical Oncology
DX: D45 Polycythemia vera (principal)
CPT/HCPCS: 36415; 80053; 83615; 85025

== ENCOUNTER 2021-07-24 08:57 | Oncology outpatient (recurring) (ONCR) | payer MEDICARE, OTHER, SELFPAY ==
[2021-07-24 09:28] LABS: Basophils # 0.1 10^3/uL (0.0-0.1); Basophils % 0.6 %; Eosinophils # 0.1 10^3/uL (0.0-0.8); Eosinophils % 0.9 %; Hematocrit 39.5 % (42.0-52.0); Hemoglobin 13.8 g/dL (11.7-16.6); Lymphocytes # 1.8 10^3/uL (0.8-4.8); Lymphocytes % 12.9 %; Mean Corpuscular HGB Conc 34.9 g/dL (30.0-36.0); Mean Corpuscular Hemoglobin 46.3 pg (28.0-34.0); Mean Corpuscular Volume 132.6 fl (80-94); Mean Platelet Volume 9.9 fL (7.4-10.4); Monocytes # 0.6 10^3/uL (0.2-0.9); Monocytes % 4.2 %; Neutrophils # 10.94 10^3/uL (1.8-7.7); Neutrophils % 80.3 %; Nucleated Red Blood Cells % 0 %; Platelet Count 281 10^3/cmm (130-400); Red Blood Count 2.98 10^6/uL (4.1-5.3); Red Cell Distribution Width 14.3 % (12.1-15.1); White Blood Count 13.6 10^3/uL (4.0-10.0)
[2021-07-24 09:50] LABS: Alanine Aminotransferase 12 U/L (0-41); Albumin Level 4.1 g/dL (3.5-5.2); Alkaline Phosphatase 78 IU/L (40-130); Anion Gap 13.9 (5-19); Aspartate Amino Transferase 18 U/L (0-40); Blood Urea Nitrogen 19 mg/dL (8-23); Calcium 9.6 mg/dL (8.5-10.5); Carbon Dioxide 25 mmol/L (22-29); Chloride 101 mmol/L (98-107); Globulin 2.7 g/dL (1.3-4.6); Glomerular Filtration Rate 83.9 mL/min (90-130); Glucose 115 mg/dL (65-115); Lactate Dehydrogenase 256 U/L (135-225); Osmolality Calculated 283 mOsm/kg (285-295); Potassium 4.9 mmol/L (3.5-5.1); Sodium 135 mmol/L (136-145); Total Bilirubin 0.5 mg/dL (0.15-1.2); Total Protein 6.8 g/dL (6.6-8.7)
--- NOTE | 2021-07-24 11:20 | PC.NURSE ---
CBC results verbalized to pt's Ashley. HCT 39.5. Pt does not need phlebotomy at this time. voiced understanding./lc
== END 2021-07-30 23:59 | disposition home or self-care (01) ==
PROVIDERS: Nurse Practitioner; PCP Family Medicine; Visit Provider Internal Medicine Medical Oncology
DX: D45 Polycythemia vera (principal)
CPT/HCPCS: 36415; 80053; 83615; 85025

== ENCOUNTER 2021-08-28 10:56 | Oncology outpatient (recurring) (ONCR) | payer MEDICARE, OTHER, SELFPAY ==
[2021-08-28 11:45] LABS: Basophils # 0.1 10^3/uL (0.0-0.1); Basophils % 0.6 %; Eosinophils # 0.1 10^3/uL (0.0-0.8); Eosinophils % 0.7 %; Hematocrit 38.4 % (42.0-52.0); Hemoglobin 13.8 g/dL (11.7-16.6); Lymphocytes # 1.9 10^3/uL (0.8-4.8); Mean Corpuscular HGB Conc 35.9 g/dL (30.0-36.0); Mean Corpuscular Hemoglobin 48.4 pg (28.0-34.0); Mean Corpuscular Volume 134.7 fl (80-94); Mean Platelet Volume 9.9 fL (7.4-10.4); Monocytes # 0.7 10^3/uL (0.2-0.9); Monocytes % 4.2 %; Neutrophils # 12.89 10^3/uL (1.8-7.7); Neutrophils % 80.7 %; Nucleated Red Blood Cells % 0 %; Platelet Count 371 10^3/cmm (130-400); Red Blood Count 2.85 10^6/uL (4.1-5.3); Red Cell Distribution Width 12.4 % (12.1-15.1)
[2021-08-28 12:01] LABS: Alanine Aminotransferase 12 U/L (0-41); Albumin Level 4.2 g/dL (3.5-5.2); Alkaline Phosphatase 88 IU/L (40-130); Aspartate Amino Transferase 19 U/L (0-40); Blood Urea Nitrogen 24 mg/dL (8-23); Calcium 9.1 mg/dL (8.5-10.5); Carbon Dioxide 24 mmol/L (22-29); Glomerular Filtration Rate 74.3 mL/min (90-130); Glucose 107 mg/dL (65-115); Total Bilirubin 0.5 mg/dL (0.15-1.2); Total Protein 7.2 g/dL (6.6-8.7)
[2021-08-28 12:15] LABS: Potassium 4.5 mmol/L (3.5-5.1)
[2021-08-28 15:03] LABS: Ferritin 115 ng/mL (30-400); Iron 104 ug/dL (59-158); Percent Saturation 39.5 % (20-50); Total Iron Binding Capacity 263 mcg/dl; Unsaturated Iron Binding 159 ug/dL (112-347)
[2021-08-28 15:12] LABS: Anion Gap 15.5 (5-19); Chloride 101 mmol/L (98-107); Osmolality Calculated 287 mOsm/kg (285-295); Sodium 136 mmol/L (136-145)
== END 2021-08-29 23:59 | disposition home or self-care (01) ==
PROVIDERS: PCP Family Medicine; Visit Provider Internal Medicine Medical Oncology
DX: D45 Polycythemia vera (principal); Z79.899 Other long term (current) drug therapy
CPT/HCPCS: 80053; 82728; 83540; 83550; 85025; 99214

== ENCOUNTER 2021-09-25 08:18 | Oncology outpatient (recurring) (ONCR) | payer MEDICARE, OTHER, SELFPAY ==
[2021-09-25 08:57] LABS: Basophils # 0.1 10^3/uL (0.0-0.1); Basophils % 0.5 %; Eosinophils # 0.2 10^3/uL (0.0-0.8); Eosinophils % 0.7 %; Hematocrit 41.1 % (42.0-52.0); Hemoglobin 14.3 g/dL (11.7-16.6); Lymphocytes # 2.4 10^3/uL (0.8-4.8); Lymphocytes % 11.6 %; Mean Corpuscular HGB Conc 34.8 g/dL (30.0-36.0); Mean Corpuscular Volume 137.9 fl (80-94); Mean Platelet Volume 10.1 fL (7.4-10.4); Monocytes # 0.7 10^3/uL (0.2-0.9); Monocytes % 3.5 %; Neutrophils # 16.44 10^3/uL (1.8-7.7); Neutrophils % 80.9 %; Nucleated Red Blood Cells % 0 %; Platelet Count 368 10^3/cmm (130-400); Red Blood Count 2.98 10^6/uL (4.1-5.3); Red Cell Distribution Width 11.9 % (12.1-15.1); White Blood Count 20.3 10^3/uL (4.0-10.0)
[2021-09-25 10:05] LABS: Alanine Aminotransferase 11 U/L (0-41); Albumin Level 3.9 g/dL (3.5-5.2); Alkaline Phosphatase 92 IU/L (40-130); Anion Gap 16.6 (5-19); Aspartate Amino Transferase 17 U/L (0-40); Blood Urea Nitrogen 20 mg/dL (8-23); Calcium 9.3 mg/dL (8.5-10.5); Carbon Dioxide 25 mmol/L (22-29); Chloride 100 mmol/L (98-107); Globulin 2.9 g/dL (1.3-4.6); Glomerular Filtration Rate 74.3 mL/min (90-130); Glucose 107 mg/dL (65-115); Osmolality Calculated 287 mOsm/kg (285-295); Potassium 4.6 mmol/L (3.5-5.1); Sodium 137 mmol/L (136-145); Total Bilirubin 0.3 mg/dL (0.15-1.2); Total Protein 6.8 g/dL (6.6-8.7)
== END 2021-09-29 23:59 | disposition home or self-care (01) ==
PROVIDERS: Nurse Practitioner Family; PCP Family Medicine; Visit Provider Internal Medicine Medical Oncology
DX: D45 Polycythemia vera (principal)
CPT/HCPCS: 80053; 85025

== ENCOUNTER 2021-10-23 08:50 | Oncology outpatient (recurring) (ONCR) | payer MEDICARE, OTHER, SELFPAY ==
[2021-10-23 09:21] LABS: Basophils # 0.1 10^3/uL (0.0-0.1); Basophils % 0.6 %; Eosinophils # 0.1 10^3/uL (0.0-0.8); Eosinophils % 0.5 %; Hematocrit 39.5 % (42.0-52.0); Hemoglobin 13.7 g/dL (11.7-16.6); Lymphocytes % 13.8 %; Mean Corpuscular HGB Conc 34.7 g/dL (30.0-36.0); Mean Corpuscular Hemoglobin 47.9 pg (28.0-34.0); Mean Corpuscular Volume 138.1 fl (80-94); Mean Platelet Volume 9.8 fL (7.4-10.4); Monocytes # 0.6 10^3/uL (0.2-0.9); Neutrophils # 11.35 10^3/uL (1.8-7.7); Neutrophils % 79.4 %; Nucleated Red Blood Cells % 0 %; Platelet Count 307 10^3/cmm (130-400); Red Blood Count 2.86 10^6/uL (4.1-5.3); Red Cell Distribution Width 12.6 % (12.1-15.1); White Blood Count 14.3 10^3/uL (4.0-10.0)
[2021-10-23 09:42] LABS: Alanine Aminotransferase 10 U/L (0-41); Alkaline Phosphatase 85 U/L (40-130); Anion Gap 15.3 (5-19); Aspartate Amino Transferase 18 U/L (0-40); Blood Urea Nitrogen 22 mg/dL (8-23); Calcium 8.8 mg/dL (8.5-10.5); Carbon Dioxide 25 mmol/L (22-29); Chloride 102 mmol/L (98-107); Glomerular Filtration Rate 74.3 mL/min (90-130); Glucose 118 mg/dL (65-115); Osmolality Calculated 288 mOsm/kg (285-295); Potassium 5.3 mmol/L (3.5-5.1); Sodium 137 mmol/L (136-145); Total Bilirubin 0.5 mg/dL (0.15-1.2)
== END 2021-10-30 23:59 | disposition home or self-care (01) ==
PROVIDERS: Nurse Practitioner Family; PCP Family Medicine; Visit Provider Internal Medicine Medical Oncology
DX: D45 Polycythemia vera (principal)
CPT/HCPCS: 80053; 85025

== ENCOUNTER 2021-11-27 10:03 | Oncology outpatient (recurring) (ONCR) | payer MEDICARE, OTHER, SELFPAY ==
[2021-11-27 10:35] LABS: Basophils # 0.1 10^3/uL (0.0-0.1); Basophils % 0.6 %; Eosinophils # 0.1 10^3/uL (0.0-0.8); Eosinophils % 0.7 %; Hematocrit 39.9 % (42.0-52.0); Hemoglobin 13.9 g/dL (11.7-16.6); Lymphocytes # 1.6 10^3/uL (0.8-4.8); Lymphocytes % 11.1 %; Mean Corpuscular HGB Conc 34.8 g/dL (30.0-36.0); Mean Corpuscular Volume 134.8 fl (80-94); Mean Platelet Volume 9.9 fL (7.4-10.4); Monocytes # 0.6 10^3/uL (0.2-0.9); Monocytes % 3.9 %; Neutrophils # 12.06 10^3/uL (1.8-7.7); Neutrophils % 82.1 %; Nucleated Red Blood Cells % 0 %; Platelet Count 346 10^3/cmm (130-400); Red Blood Count 2.96 10^6/uL (4.1-5.3); Red Cell Distribution Width 13.2 % (12.1-15.1); White Blood Count 14.7 10^3/uL (4.0-10.0)
[2021-11-27 10:53] LABS: Alanine Aminotransferase 8 U/L (0-41); Albumin Level 3.9 g/dL (3.5-5.2); Alkaline Phosphatase 90 U/L (40-130); Anion Gap 12.7 (5-19); Aspartate Amino Transferase 17 U/L (0-40); Blood Urea Nitrogen 20 mg/dL (8-23); Calcium 9.3 mg/dL (8.5-10.5); Carbon Dioxide 27 mmol/L (22-29); Chloride 100 mmol/L (98-107); Globulin 3.1 g/dL (1.3-4.6); Glomerular Filtration Rate 83.9 mL/min (90-130); Glucose 108 mg/dL (65-115); Osmolality Calculated 283 mOsm/kg (285-295); Potassium 4.7 mmol/L (3.5-5.1); Sodium 135 mmol/L (136-145); Total Bilirubin 0.6 mg/dL (0.15-1.2)
== END 2021-11-29 23:59 | disposition home or self-care (01) ==
PROVIDERS: Nurse Practitioner Family; PCP Family Medicine; Visit Provider Internal Medicine Medical Oncology
DX: D45 Polycythemia vera (principal); Z79.899 Other long term (current) drug therapy; L97.329 Non-pressure chronic ulcer of left ankle with unspecified severity
CPT/HCPCS: 36415; 80053; 85025; 99214

== ENCOUNTER → 2021-12-10 13:02 | Outpatient (BNVA) | payer MEDICARE, OTHER, SELFPAY | PROVIDERS: PCP Family Medicine; Visit Provider Nurse Practitioner Family | DX: I96 Gangrene, not elsewhere classified (principal); L97.322 Non-pressure chronic ulcer of left ankle with fat layer exposed | CPT/HCPCS: 11042; 87070; 87077; 87176; 87186; 87205; 99203; 99213; A6212 ==

== ENCOUNTER → 2021-12-17 08:06 | Outpatient (BNVA) | payer MEDICARE, OTHER, SELFPAY | PROVIDERS: PCP Family Medicine; Visit Provider Nurse Practitioner Family | DX: I73.9 Peripheral vascular disease, unspecified (principal); L97.322 Non-pressure chronic ulcer of left ankle with fat layer exposed | CPT/HCPCS: 11042; A6212 ==

== ENCOUNTER → 2021-12-24 08:32 | Outpatient (BNVA) | payer MEDICARE, OTHER, SELFPAY | PROVIDERS: PCP Family Medicine; Visit Provider Nurse Practitioner Family | DX: I73.9 Peripheral vascular disease, unspecified (principal); L97.322 Non-pressure chronic ulcer of left ankle with fat layer exposed | CPT/HCPCS: 11042; A6252 ==

== ENCOUNTER 2021-12-25 08:41 | Oncology outpatient (recurring) (ONCR) | payer MEDICARE, OTHER, SELFPAY ==
[2021-12-25 09:05] LABS: Basophils # 0.1 10^3/uL (0.0-0.1); Basophils % 0.6 %; Eosinophils # 0.1 10^3/uL (0.0-0.8); Eosinophils % 0.7 %; Hematocrit 41.3 % (42.0-52.0); Hemoglobin 14.4 g/dL (11.7-16.6); Lymphocytes # 1.8 10^3/uL (0.8-4.8); Lymphocytes % 10.9 %; Mean Corpuscular HGB Conc 34.9 g/dL (30.0-36.0); Mean Corpuscular Hemoglobin 46.9 pg (28.0-34.0); Mean Corpuscular Volume 134.5 fl (80-94); Mean Platelet Volume 9.9 fL (7.4-10.4); Monocytes # 0.7 10^3/uL (0.2-0.9); Monocytes % 4.3 %; Neutrophils # 13.83 10^3/uL (1.8-7.7); Neutrophils % 82.3 %; Nucleated Red Blood Cells % 0 %; Platelet Count 351 10^3/cmm (130-400); Red Blood Count 3.07 10^6/uL (4.1-5.3); Red Cell Distribution Width 11.8 % (12.1-15.1); White Blood Count 16.8 10^3/uL (4.0-10.0)
[2021-12-25 09:37] LABS: Alanine Aminotransferase 8 U/L (0-41); Albumin Level 3.8 g/dL (3.5-5.2); Alkaline Phosphatase 113 U/L (40-130); Anion Gap 14.4 (5-19); Aspartate Amino Transferase 17 U/L (0-40); Blood Urea Nitrogen 22 mg/dL (8-23); Calcium 9.5 mg/dL (8.5-10.5); Carbon Dioxide 25 mmol/L (22-29); Chloride 104 mmol/L (98-107); Globulin 3.4 g/dL (1.3-4.6); Glomerular Filtration Rate 74.3 mL/min (90-130); Glucose 113 mg/dL (65-115); Osmolality Calculated 290 mOsm/kg (285-295); Potassium 5.4 mmol/L (3.5-5.1); Sodium 138 mmol/L (136-145); Total Bilirubin 0.3 mg/dL (0.15-1.2); Total Protein 7.2 g/dL (6.6-8.7)
== END 2021-12-30 23:59 | disposition home or self-care (01) ==
PROVIDERS: Nurse Practitioner Family; PCP Family Medicine; Visit Provider Internal Medicine Medical Oncology
DX: D45 Polycythemia vera (principal)
CPT/HCPCS: 80053; 85025

== ENCOUNTER → 2021-12-27 08:24 | Outpatient (BNVA) | payer MEDICARE, OTHER, SELFPAY | PROVIDERS: PCP Family Medicine; Visit Provider Nurse Practitioner Family | DX: L97.822 Non-pressure chronic ulcer of other part of left lower leg with fat layer exposed (principal) | CPT/HCPCS: 29581 ==

== ENCOUNTER 2021-12-31 07:40 | Outpatient (CLI) | payer MEDICARE, OTHER, SELFPAY ==
--- NOTE | 2021-12-31 08:00 | USCV_ITS ---
John Tsai Age: 66 Gender: M : 1955 Exam Date: 12/31/2021 08:31 Ordering Phys: Darya Barber Technologist: [place] [facility] [place]: HISTORY: PROCEDURES: Left duplex Venous Insufficiency study of the Deep and Superficial systems was carried out according to normal protocol with the patient in supine positon for deep system and dependent position for the superficial system. FINDINGS: All deep veins demonstrated compressibility without evidence of intraluminal thrombus or increased echogenicity. Spectral analysis of Doppler signals demonstrates normal response to compression maneuvers indicating patency without obstruction. Reflux determinations were made with the patient in the dependent position, the weight being on the contralateral leg. No notable reflux was seen at this time. The veins were found to be easily compressible with spontaneous blood flow. Non pulsatile flow pattern. CONCLUSIONS No evidence of DVT in the above-mentioned identifiable veins. No significant venous reflux were noted on the left side. Superficial veins were found to be patent and of normal caliber. Dr Sharon White MD [facility] (Electronically Signed) Final Date: 01 January 2022 20:57 S
== END 2021-12-31 07:41 | disposition home or self-care (01) ==
PROVIDERS: PCP Family Medicine; Visit Provider Nurse Practitioner Family
DX: M79.605 Pain in left leg (principal); L97.822 Non-pressure chronic ulcer of other part of left lower leg with fat layer exposed
CPT/HCPCS: 11042; 93971; A6021

== ENCOUNTER 2022-01-06 08:23 | Outpatient (CLI) | payer MEDICARE, OTHER, SELFPAY ==
--- NOTE | 2022-01-06 08:30 | USCV_ITS ---
Eulalio John Age: 66 Gender: M : 1955 Exam Date: 01/06/2022 08:30 Ordering Phys: Darya Barber Technologist: CT Exam Location: [facility] [place] Indication: ulcer left le Risk Factors: Previous Vascular Surgery: RIGHT LEFT BP: 151.0 / 84.00 BP: 158.0/ 89.00 0 0 Waveform Velocity (cm/s) Velocity (cm/s) Waveform Iliac Prox 154.6 Triphasic Iliac Mid 130.9 Triphasic Iliac Distal 170.8 Triphasic COLLECTION TELLER 147.3 Triphasic SFA Prox 117.4 Triphasic SFA Mid 131.3 Triphasic SFA Dist 92.0 Triphasic POP 67.5 Triphasic TANNING SALON ATTENDANT 50.2 Biphasic DPA 66.7 Biphasic 1.1 WES 1.2 FINDINGS no stenosis noted, triphasic throughout Resting WES 1.1 on the right and 1.2 on the left. Normal arterial Doppler waveforms Intimal thickening in the iliac and femoral arteries Mild diffuse plaques in the dorsalis pedis and posterior tibial arteries CONCLUSIONS 1. Patent iliac, femoral, popliteal and infrapopliteal vessels on the left side 2. Intimal thickening and minimal plaques on the left side 3. Normal resting WES bilaterally. Near normal arterial Doppler waveforms and Doppler flow velocities 4. No significant arterial obstruction, based on the above findings on the left side. Dr Sharon Whtie MD [facility] (Electronically Signed) Final Date: 08 January 2022 10:06 S
== END 2022-01-06 08:24 | disposition home or self-care (01) ==
LOC: RAD 08:24
PROVIDERS: PCP Family Medicine; Visit Provider Nurse Practitioner Family
DX: L97.922 Non-pressure chronic ulcer of unspecified part of left lower leg with fat layer exposed (principal); M79.605 Pain in left leg
CPT/HCPCS: 29581; 93926

== ENCOUNTER → 2022-01-14 08:42 | Outpatient (BNVA) | payer MEDICARE, OTHER, SELFPAY | PROVIDERS: PCP Family Medicine; Visit Provider Nurse Practitioner Family | DX: I73.9 Peripheral vascular disease, unspecified (principal); L97.322 Non-pressure chronic ulcer of left ankle with fat layer exposed | CPT/HCPCS: 11042; A6252 ==

== ENCOUNTER → 2022-01-21 08:15 | Outpatient (BNVA) | payer MEDICARE, OTHER, SELFPAY | PROVIDERS: PCP Family Medicine; Visit Provider Nurse Practitioner Family | DX: I73.9 Peripheral vascular disease, unspecified (principal); L97.322 Non-pressure chronic ulcer of left ankle with fat layer exposed | CPT/HCPCS: 15275; A6250; A6252; Q4186 ==

== ENCOUNTER → 2022-01-28 08:07 | Outpatient (BNVA) | payer MEDICARE, OTHER, SELFPAY | PROVIDERS: PCP Family Medicine; Visit Provider Nurse Practitioner Family | DX: I73.9 Peripheral vascular disease, unspecified (principal); L97.322 Non-pressure chronic ulcer of left ankle with fat layer exposed | CPT/HCPCS: 11042; A6212 ×2 ==

== ENCOUNTER 2022-01-29 08:36 | Oncology outpatient (recurring) (ONCR) | payer MEDICARE, OTHER, SELFPAY ==
[2022-01-29 10:15] LABS: Basophils # 0.1 10^3/uL (0.0-0.1); Basophils % 0.6 %; Eosinophils # 0.1 10^3/uL (0.0-0.8); Eosinophils % 0.4 %; Hematocrit 44.3 % (42.0-52.0); Hemoglobin 15.5 g/dL (11.7-16.6); Lymphocytes # 1.8 10^3/uL (0.8-4.8); Lymphocytes % 8.3 %; Mean Corpuscular Hemoglobin 45.6 pg (28.0-34.0); Mean Corpuscular Volume 130.3 fl (80-94); Mean Platelet Volume 9.7 fL (7.4-10.4); Monocytes # 0.9 10^3/uL (0.2-0.9); Neutrophils # 18.17 10^3/uL (1.8-7.7); Neutrophils % 85.5 %; Nucleated Red Blood Cells % 0 %; Platelet Count 404 10^3/cmm (130-400); Red Cell Distribution Width 11.5 % (12.1-15.1); White Blood Count 21.3 10^3/uL (4.0-10.0)
== END 2022-01-29 23:59 | disposition home or self-care (01) ==
PROVIDERS: PCP Family Medicine; Visit Provider Internal Medicine Medical Oncology
DX: D45 Polycythemia vera (principal)
CPT/HCPCS: 36415; 85025

== ENCOUNTER → 2022-02-04 07:51 | Outpatient (BNVA) | payer MEDICARE, OTHER, SELFPAY | PROVIDERS: PCP Family Medicine; Visit Provider Nurse Practitioner Family | DX: I73.9 Peripheral vascular disease, unspecified (principal); L97.322 Non-pressure chronic ulcer of left ankle with fat layer exposed | CPT/HCPCS: 15271; A6206; A6250; A6252; Q4205 ==

== ENCOUNTER → 2022-02-11 08:02 | Outpatient (BNVA) | payer MEDICARE, OTHER, SELFPAY | PROVIDERS: PCP Family Medicine; Visit Provider Thoracic Surgery (Cardiothoracic Vascular Surgery) | DX: I73.9 Peripheral vascular disease, unspecified (principal); L97.322 Non-pressure chronic ulcer of left ankle with fat layer exposed | CPT/HCPCS: 11042; A6252 ==

== ENCOUNTER → 2022-02-14 08:15 | Outpatient (BNVA) | payer MEDICARE, OTHER, SELFPAY | PROVIDERS: PCP Family Medicine; Visit Provider Surgery | DX: L97.822 Non-pressure chronic ulcer of other part of left lower leg with fat layer exposed (principal) | CPT/HCPCS: 29581 ==

== ENCOUNTER → 2022-02-18 07:53 | Outpatient (BNVA) | payer MEDICARE, OTHER, SELFPAY | PROVIDERS: PCP Family Medicine; Visit Provider Thoracic Surgery (Cardiothoracic Vascular Surgery) | DX: L97.822 Non-pressure chronic ulcer of other part of left lower leg with fat layer exposed (principal) | CPT/HCPCS: 11042 ==

== ENCOUNTER → 2022-02-25 09:42 | Outpatient (BNVA) | payer MEDICARE, OTHER, SELFPAY | PROVIDERS: PCP Family Medicine; Visit Provider Thoracic Surgery (Cardiothoracic Vascular Surgery) | DX: I73.9 Peripheral vascular disease, unspecified (principal); L97.322 Non-pressure chronic ulcer of left ankle with fat layer exposed | CPT/HCPCS: 11042; A6210; A6252 ==

== ENCOUNTER → 2022-02-28 08:09 | Outpatient (BNVA) | payer MEDICARE, OTHER, SELFPAY | PROVIDERS: PCP Family Medicine; Visit Provider Thoracic Surgery (Cardiothoracic Vascular Surgery) | DX: I73.9 Peripheral vascular disease, unspecified (principal); L97.322 Non-pressure chronic ulcer of left ankle with fat layer exposed | CPT/HCPCS: 29581; A6210 ==

== ENCOUNTER → 2022-03-04 13:00 | Outpatient (BNVA) | payer MEDICARE, OTHER, SELFPAY | PROVIDERS: PCP Family Medicine; Visit Provider Thoracic Surgery (Cardiothoracic Vascular Surgery) | DX: I73.9 Peripheral vascular disease, unspecified (principal); L97.322 Non-pressure chronic ulcer of left ankle with fat layer exposed | CPT/HCPCS: 11042; A6021; A6252 ==

== ENCOUNTER 2022-03-05 12:54 | Oncology outpatient (recurring) (ONCR) | payer MEDICARE, OTHER, SELFPAY ==
[2022-03-05 13:35] LABS: Basophils # 0.1 10^3/uL (0.0-0.1); Basophils % 0.6 %; Eosinophils # 0.1 10^3/uL (0.0-0.8); Eosinophils % 0.6 %; Hematocrit 43.8 % (42.0-52.0); Hemoglobin 15.2 g/dL (11.7-16.6); Lymphocytes # 1.8 10^3/uL (0.8-4.8); Lymphocytes % 8.8 %; Mean Corpuscular HGB Conc 34.7 g/dL (30.0-36.0); Mean Corpuscular Hemoglobin 44.7 pg (28.0-34.0); Mean Corpuscular Volume 128.8 fl (80-94); Monocytes # 0.7 10^3/uL (0.2-0.9); Monocytes % 3.4 %; Neutrophils # 17.07 10^3/uL (1.8-7.7); Neutrophils % 85.1 %; Nucleated Red Blood Cells % 0 %; Platelet Count 337 10^3/cmm (130-400); Red Cell Distribution Width 12.1 % (12.1-15.1); White Blood Count 20.1 10^3/uL (4.0-10.0)
[2022-03-05 14:19] LABS: Alanine Aminotransferase 11 U/L (0-41); Albumin Level 4.2 g/dL (3.5-5.2); Alkaline Phosphatase 86 U/L (40-130); Aspartate Amino Transferase 19 U/L (0-40); Blood Urea Nitrogen 19 mg/dL (8-23); Calcium 8.7 mg/dL (8.5-10.5); Carbon Dioxide 25 mmol/L (22-29); Chloride 103 mmol/L (98-107); Globulin 2.9 g/dL (1.3-4.6); Glomerular Filtration Rate 74.3 mL/min (90-130); Glucose 96 mg/dL (65-115); Osmolality Calculated 290 mOsm/kg (285-295); Sodium 139 mmol/L (136-145); Total Bilirubin 0.3 mg/dL (0.15-1.2); Total Protein 7.1 g/dL (6.6-8.7)
[2022-03-05 14:20] LABS: Anion Gap 15.8 (5-19); Potassium 4.8 mmol/L (3.5-5.1)
== END 2022-04-01 23:59 | disposition home or self-care (01) ==
PROVIDERS: Nurse Practitioner Family; PCP Family Medicine; Visit Provider Internal Medicine Medical Oncology
DX: D45 Polycythemia vera (principal); I77.1 Stricture of artery; D72.829 Elevated white blood cell count, unspecified; L97.929 Non-pressure chronic ulcer of unspecified part of left lower leg with unspecified severity; Z79.899 Other long term (current) drug therapy
CPT/HCPCS: 36415; 80053; 85025; 99214

== ENCOUNTER → 2022-03-12 08:03 | Outpatient (BNVA) | payer MEDICARE, OTHER, SELFPAY | PROVIDERS: PCP Family Medicine; Visit Provider Thoracic Surgery (Cardiothoracic Vascular Surgery) | DX: I73.9 Peripheral vascular disease, unspecified (principal); L97.322 Non-pressure chronic ulcer of left ankle with fat layer exposed | CPT/HCPCS: 11042; A6252 ==

== ENCOUNTER → 2022-03-17 13:04 | Outpatient (BNVA) | payer MEDICARE, OTHER, SELFPAY | PROVIDERS: PCP Family Medicine; Visit Provider Thoracic Surgery (Cardiothoracic Vascular Surgery) | DX: I73.9 Peripheral vascular disease, unspecified (principal); L97.322 Non-pressure chronic ulcer of left ankle with fat layer exposed | CPT/HCPCS: 29581; A6252 ==

== ENCOUNTER → 2022-03-20 07:49 | Outpatient (BNVA) | payer MEDICARE, OTHER, SELFPAY | PROVIDERS: PCP Family Medicine; Visit Provider Thoracic Surgery (Cardiothoracic Vascular Surgery) | DX: I73.9 Peripheral vascular disease, unspecified (principal); L97.322 Non-pressure chronic ulcer of left ankle with fat layer exposed | CPT/HCPCS: 29581 ==

== ENCOUNTER → 2022-03-24 07:52 | Outpatient (BNVA) | payer MEDICARE, OTHER, SELFPAY | PROVIDERS: PCP Family Medicine; Visit Provider Thoracic Surgery (Cardiothoracic Vascular Surgery) | DX: I73.9 Peripheral vascular disease, unspecified (principal); L97.322 Non-pressure chronic ulcer of left ankle with fat layer exposed | CPT/HCPCS: 11042; A6210; A6252 ==

== ENCOUNTER → 2022-04-07 08:41 | Outpatient (BNVA) | payer MEDICARE, OTHER, SELFPAY | PROVIDERS: PCP Family Medicine; Visit Provider Thoracic Surgery (Cardiothoracic Vascular Surgery) | DX: I96 Gangrene, not elsewhere classified (principal); I73.9 Peripheral vascular disease, unspecified; L97.322 Non-pressure chronic ulcer of left ankle with fat layer exposed | CPT/HCPCS: 15271; A6206; A6252; Q4187 ==

== ENCOUNTER → 2022-04-14 08:42 | Outpatient (BNVA) | payer MEDICARE, OTHER, SELFPAY | PROVIDERS: PCP Family Medicine; Visit Provider Thoracic Surgery (Cardiothoracic Vascular Surgery) | DX: I73.9 Peripheral vascular disease, unspecified (principal); L97.322 Non-pressure chronic ulcer of left ankle with fat layer exposed | CPT/HCPCS: 15271; A6206; A6252; Q4187 ==

== ENCOUNTER 2022-04-16 08:58 | Oncology outpatient (recurring) (ONCR) | payer MEDICARE, OTHER, SELFPAY ==
[2022-04-16 10:05] LABS: Basophils # 0.1 10^3/uL (0.0-0.1); Basophils % 0.7 %; Eosinophils # 0.1 10^3/uL (0.0-0.8); Eosinophils % 0.6 %; Hematocrit 46.4 % (42.0-52.0); Hemoglobin 16.4 g/dL (11.7-16.6); Lymphocytes # 1.7 10^3/uL (0.8-4.8); Lymphocytes % 9.9 %; Mean Corpuscular HGB Conc 35.3 g/dL (30.0-36.0); Mean Corpuscular Hemoglobin 44.8 pg (28.0-34.0); Mean Corpuscular Volume 126.8 fl (80-94); Monocytes # 0.7 10^3/uL (0.2-0.9); Monocytes % 4.1 %; Neutrophils # 13.84 10^3/uL (1.8-7.7); Nucleated Red Blood Cells % 0 %; Platelet Count 375 10^3/cmm (130-400); Red Blood Count 3.66 10^6/uL (4.1-5.3); Red Cell Distribution Width 12.9 % (12.1-15.1); White Blood Count 16.7 10^3/uL (4.0-10.0)
== END 2022-04-29 23:59 | disposition home or self-care (01) ==
PROVIDERS: PCP Family Medicine; Visit Provider Internal Medicine Medical Oncology
DX: D45 Polycythemia vera (principal)
CPT/HCPCS: 85025

== ENCOUNTER → 2022-04-21 09:11 | Outpatient (BNVA) | payer MEDICARE, OTHER, SELFPAY | PROVIDERS: PCP Family Medicine; Visit Provider Thoracic Surgery (Cardiothoracic Vascular Surgery) | DX: I73.9 Peripheral vascular disease, unspecified (principal); L97.322 Non-pressure chronic ulcer of left ankle with fat layer exposed | CPT/HCPCS: 15271; A6206; A6250; A6252; Q4187 ==

== ENCOUNTER → 2022-04-28 08:48 | Outpatient (BNVA) | payer MEDICARE, OTHER, SELFPAY | PROVIDERS: PCP Family Medicine; Visit Provider Thoracic Surgery (Cardiothoracic Vascular Surgery) | DX: I73.9 Peripheral vascular disease, unspecified (principal); L97.322 Non-pressure chronic ulcer of left ankle with fat layer exposed | CPT/HCPCS: 15271; A6206; A6252; Q4187 ==

== ENCOUNTER → 2022-05-05 08:48 | Outpatient (BNVA) | payer MEDICARE, OTHER, SELFPAY | PROVIDERS: PCP Family Medicine; Visit Provider Thoracic Surgery (Cardiothoracic Vascular Surgery) | DX: I73.9 Peripheral vascular disease, unspecified (principal); L97.312 Non-pressure chronic ulcer of right ankle with fat layer exposed | CPT/HCPCS: 15271; A6206; Q4187 ==

== ENCOUNTER → 2022-05-12 08:36 | Outpatient (BNVA) | payer MEDICARE, OTHER, SELFPAY | PROVIDERS: PCP Family Medicine; Visit Provider Thoracic Surgery (Cardiothoracic Vascular Surgery) | DX: I73.9 Peripheral vascular disease, unspecified (principal); L97.322 Non-pressure chronic ulcer of left ankle with fat layer exposed | CPT/HCPCS: 15275; A6021; A6206; A6250; A6252; Q4187 ==

== ENCOUNTER 2022-05-15 09:50 | Oncology outpatient (recurring) (ONCR) | payer MEDICARE, OTHER, SELFPAY ==
[2022-05-15 10:15] VITALS: BP 120/78; PULSE 78; RESP 18; TEMP 36.6; O2SAT 98
[2022-05-15 10:26] LABS: Basophils # 0.1 10^3/uL (0.0-0.1); Basophils % 0.5 %; Eosinophils # 0.1 10^3/uL (0.0-0.8); Eosinophils % 0.5 %; Hemoglobin 14.8 g/dL (11.7-16.6); Lymphocytes # 1.6 10^3/uL (0.8-4.8); Lymphocytes % 8.1 %; Mean Corpuscular HGB Conc 34.4 g/dL (30.0-36.0); Mean Corpuscular Hemoglobin 44.2 pg (28.0-34.0); Mean Corpuscular Volume 128.4 fl (80-94); Mean Platelet Volume 10.3 fL (7.4-10.4); Monocytes # 0.6 10^3/uL (0.2-0.9); Monocytes % 2.8 %; Neutrophils # 17.37 10^3/uL (1.8-7.7); Neutrophils % 86.9 %; Nucleated Red Blood Cells % 0 %; Platelet Count 339 10^3/cmm (130-400); Red Blood Count 3.35 10^6/uL (4.1-5.3); Red Cell Distribution Width 12.8 % (12.1-15.1)
--- NOTE | 2022-05-15 11:30 | PC.NURSE ---
Lab results reviewed with Dr Shaver with no theraputic phlebotomy needed.Patient was called with the plans for next month follow up and to continue his hydroxyurea.mm
== END 2022-05-30 23:59 | disposition home or self-care (01) ==
LOC: ONCMED 09:50
PROVIDERS: PCP Family Medicine; Visit Provider Internal Medicine Medical Oncology
DX: D45 Polycythemia vera (principal)
CPT/HCPCS: 36415; 85025

== ENCOUNTER → 2022-05-19 08:09 | Outpatient (BNVA) | payer MEDICARE, OTHER, SELFPAY | PROVIDERS: PCP Family Medicine; Visit Provider Thoracic Surgery (Cardiothoracic Vascular Surgery) | DX: I73.9 Peripheral vascular disease, unspecified (principal); L97.322 Non-pressure chronic ulcer of left ankle with fat layer exposed | CPT/HCPCS: 11042; A6021; A6252 ==

== ENCOUNTER → 2022-05-26 08:19 | Outpatient (BNVA) | payer MEDICARE, OTHER, SELFPAY | PROVIDERS: PCP Family Medicine; Visit Provider Thoracic Surgery (Cardiothoracic Vascular Surgery) | DX: I73.9 Peripheral vascular disease, unspecified (principal); L97.322 Non-pressure chronic ulcer of left ankle with fat layer exposed | CPT/HCPCS: 11042; A6021; A6252 ==

== ENCOUNTER → 2022-06-02 08:25 | Outpatient (BNVA) | payer MEDICARE, OTHER, SELFPAY | PROVIDERS: PCP Family Medicine; Visit Provider Thoracic Surgery (Cardiothoracic Vascular Surgery) | DX: I73.9 Peripheral vascular disease, unspecified (principal); L97.322 Non-pressure chronic ulcer of left ankle with fat layer exposed | CPT/HCPCS: 11042; A6251 ==

== ENCOUNTER → 2022-06-09 08:40 | Outpatient (BNVA) | payer MEDICARE, OTHER, SELFPAY | PROVIDERS: PCP Family Medicine; Visit Provider Thoracic Surgery (Cardiothoracic Vascular Surgery) | DX: I73.9 Peripheral vascular disease, unspecified (principal); L97.322 Non-pressure chronic ulcer of left ankle with fat layer exposed | CPT/HCPCS: 97597; A6251 ==

== ENCOUNTER → 2022-06-16 08:30 | Outpatient (BNVA) | payer MEDICARE, OTHER, SELFPAY | PROVIDERS: PCP Family Medicine; Visit Provider Thoracic Surgery (Cardiothoracic Vascular Surgery) | DX: I73.9 Peripheral vascular disease, unspecified (principal); L97.322 Non-pressure chronic ulcer of left ankle with fat layer exposed | CPT/HCPCS: 11042; A6021; A6251 ==

== ENCOUNTER 2022-06-17 07:42 | Oncology outpatient (recurring) (ONCR) | payer MEDICARE, OTHER, SELFPAY ==
[2022-06-17 07:55] VITALS: BP 156/84; PULSE 62; TEMP 37.3
[2022-06-17 08:12] LABS: Basophils # 0.1 10^3/uL (0.0-0.1); Basophils % 0.8 %; Eosinophils # 0.1 10^3/uL (0.0-0.8); Eosinophils % 0.6 %; Hematocrit 41.5 % (42.0-52.0); Hemoglobin 14.4 g/dL (11.7-16.6); Lymphocytes # 1.6 10^3/uL (0.8-4.8); Mean Corpuscular HGB Conc 34.7 g/dL (30.0-36.0); Mean Corpuscular Hemoglobin 45.3 pg (28.0-34.0); Mean Corpuscular Volume 130.5 fl (80-94); Monocytes # 0.5 10^3/uL (0.2-0.9); Monocytes % 3.3 %; Neutrophils # 13.42 10^3/uL (1.8-7.7); Neutrophils % 83.9 %; Nucleated Red Blood Cells % 0 %; Platelet Count 369 10^3/cmm (130-400); Red Blood Count 3.18 10^6/uL (4.1-5.3); Red Cell Distribution Width 12.9 % (12.1-15.1)
[2022-06-17 08:23] LABS: Alanine Aminotransferase 7 U/L (0-41); Albumin Level 3.9 g/dL (3.5-5.2); Alkaline Phosphatase 92 U/L (40-130); Aspartate Amino Transferase 20 U/L (0-40); Blood Urea Nitrogen 19 mg/dL (8-23); Calcium 8.6 mg/dL (8.5-10.5); Carbon Dioxide 24 mmol/L (22-29); Chloride 102 mmol/L (98-107); Globulin 2.9 g/dL (1.3-4.6); Glomerular Filtration Rate 74.1 mL/min (90-130); Glucose 99 mg/dL (65-115); Osmolality Calculated 282 mOsm/kg (285-295); Sodium 135 mmol/L (136-145); Total Bilirubin 0.4 mg/dL (0.15-1.2); Total Protein 6.8 g/dL (6.6-8.7)
[2022-06-17 08:28] LABS: Anion Gap 14.1 (5-19); Lactate Dehydrogenase 310 U/L (135-225); Potassium 5.1 mmol/L (3.5-5.1)
== END 2022-06-29 23:59 | disposition home or self-care (01) ==
PROVIDERS: PCP Family Medicine; Visit Provider Internal Medicine Medical Oncology
DX: D45 Polycythemia vera (principal); I77.1 Stricture of artery; D72.829 Elevated white blood cell count, unspecified; L97.929 Non-pressure chronic ulcer of unspecified part of left lower leg with unspecified severity; Z79.899 Other long term (current) drug therapy; R10.84 Generalized abdominal pain
CPT/HCPCS: 36415; 80053; 83615; 85025; 99214

== ENCOUNTER → 2022-06-23 08:36 | Outpatient (BNVA) | payer MEDICARE, OTHER, SELFPAY | PROVIDERS: PCP Family Medicine; Visit Provider Thoracic Surgery (Cardiothoracic Vascular Surgery) | DX: I73.9 Peripheral vascular disease, unspecified (principal); L97.322 Non-pressure chronic ulcer of left ankle with fat layer exposed | CPT/HCPCS: 11042; A6251 ==

== ENCOUNTER → 2022-06-30 09:07 | Outpatient (BNVA) | payer MEDICARE, OTHER, SELFPAY | PROVIDERS: PCP Family Medicine; Visit Provider Thoracic Surgery (Cardiothoracic Vascular Surgery) | DX: I73.9 Peripheral vascular disease, unspecified (principal); L97.322 Non-pressure chronic ulcer of left ankle with fat layer exposed | CPT/HCPCS: 11042; A6251 ==

== ENCOUNTER 2022-07-01 15:25 | Outpatient (CLI) | payer MEDICARE, OTHER, SELFPAY ==
--- NOTE | 2022-07-01 16:00 | CTR_ITS ---
PROCEDURE INFORMATION: Exam: CT Abdomen And Pelvis Without Contrast Exam date and time: 07/01/2022 4:14 PM Age: 67 years old Clinical indication: Abdominal pain; Localized; Patient HX: Pain in upper abdomen since August 2021, but goes away after eating, HX of polycythemia vera; Additional info: Generalized abdominal pain TECHNIQUE: Imaging protocol: Computed tomography of the abdomen and pelvis without contrast. Radiation optimization: All CT scans at this facility use at least one of these dose optimization techniques: automated exposure control; mA and/or kV adjustment per patient size (includes targeted exams where dose is matched to clinical indication); or iterative reconstruction. REPORTING DATA: Count of CT and Cardiac NM exams in prior 12 months: This patient has received 0 known CTs and 0 known cardiac nuclear medicine studies in the 12 months prior to the current study. COMPARISON: No relevant prior studies available. RADIATION DOSE METRICS: Total DLP (mGy-cm): 354 FINDINGS: Mediastinal space: Dilated visualized distal esophagus with associated mild hiatal hernia, with oral contrast in the visualized distal esophagus suggestive of reflux. Liver: Normal. No mass. Gallbladder and bile ducts: Gallstones or cholelithiasis. No biliary ductal dilatation. Pancreas: Normal. No ductal dilation. Spleen: Normal. No splenomegaly. Adrenal glands: Normal. No mass. Kidneys and ureters: Several rounded hypodense foci fluid density is seen about the cortex of both kidneys [id number], suggestive of renal cysts. Largest measures approximately 2.5 cm on the left. Punctate nonobstructing renal calculus suggested bilaterally. No findings of ureteral calculus or obstructive uropathy. Stomach and bowel: No bowel obstruction. No abnormal bowel wall thickening. Moderate stool volume in the colon. No focal inflammatory change. Appendix: No evidence of appendicitis. Intraperitoneal space: Unremarkable. No free air. No significant fluid collection. Vasculature: Unremarkable. No abdominal aortic aneurysm. Lymph nodes: Unremarkable. No enlarged lymph nodes. Urinary bladder: Unremarkable as visualized. Reproductive: A few small prostate calcifications are seen, with prostate gland measuring approximately 4.3 x 3 cm. Bones/joints: Mild spondylotic change lumbar spine. Soft tissues: Mild inguinal hernias of fat. CT/CT abdomen pelvis wo con [id number] IMPRESSION: 1. Dilated visualized distal esophagus with mild hiatal hernia with oral contrast within the visualized distal esophagus suggestive of reflux (with oral contrast in the stomach). 2. Cholelithiasis. 3. Suggestion of renal cysts and punctate nonobstructing renal calculus bilaterally. 4. A few small prostate calcifications are seen. 5. Moderate stool volume in the colon. 6. Mild inguinal hernias of fat without bowel content. COMMENTS: Consistent with the [employer]'s Incidental Findings Committee white paper (J Am Gina Radiol 2018): Any incidental renal lesion less than 1 cm or classified as too small to characterize, or any incidental cystic renal lesion characterized as simple-appearing, is likely benign. No follow-up imaging is recommended for these lesions per consensus recommendations based on imaging criteria.
[2022-07-01] MEDS: barium sulfate 450 mL Oral Susp PO (16:19)
== END 2022-07-01 15:26 | disposition home or self-care (01) ==
LOC: RAD 15:28
PROVIDERS: PCP Family Medicine; Visit Provider Internal Medicine Medical Oncology
DX: K80.20 Calculus of gallbladder without cholecystitis without obstruction (principal); D45 Polycythemia vera; R10.9 Unspecified abdominal pain
CPT/HCPCS: 74176

== ENCOUNTER → 2022-07-07 08:54 | Outpatient (BNVA) | payer MEDICARE, OTHER, SELFPAY | PROVIDERS: PCP Family Medicine; Visit Provider Nurse Practitioner Family | DX: I73.9 Peripheral vascular disease, unspecified (principal); L97.322 Non-pressure chronic ulcer of left ankle with fat layer exposed | CPT/HCPCS: 97597 ==

== ENCOUNTER → 2022-07-14 08:28 | Outpatient (BNVA) | payer MEDICARE, OTHER, SELFPAY | PROVIDERS: PCP Family Medicine; Visit Provider Thoracic Surgery (Cardiothoracic Vascular Surgery) | DX: I73.9 Peripheral vascular disease, unspecified (principal); L97.321 Non-pressure chronic ulcer of left ankle limited to breakdown of skin | CPT/HCPCS: 11042; A6021; A6219 ==

== ENCOUNTER → 2022-07-21 08:40 | Outpatient (BNVA) | payer MEDICARE, OTHER, SELFPAY | PROVIDERS: PCP Family Medicine; Visit Provider Thoracic Surgery (Cardiothoracic Vascular Surgery) | DX: I73.9 Peripheral vascular disease, unspecified (principal); L97.321 Non-pressure chronic ulcer of left ankle limited to breakdown of skin | CPT/HCPCS: 97597; A6021 ==

== ENCOUNTER 2022-07-30 08:22 | Oncology outpatient (recurring) (ONCR) | payer MEDICARE, OTHER, SELFPAY ==
[2022-07-30 08:50] VITALS: BP 156/78; PULSE 62; RESP 17; TEMP 36.7; O2SAT 94
[2022-07-30 09:04] LABS: Basophils # 0.1 10^3/uL (0.0-0.1); Basophils % 0.6 %; Eosinophils # 0.1 10^3/uL (0.0-0.8); Eosinophils % 0.7 %; Hemoglobin 15.2 g/dL (11.7-16.6); Lymphocytes # 2.1 10^3/uL (0.8-4.8); Lymphocytes % 11.1 %; Mean Corpuscular HGB Conc 34.5 g/dL (30.0-36.0); Mean Corpuscular Hemoglobin 45.2 pg (28.0-34.0); Mean Platelet Volume 9.7 fL (7.4-10.4); Monocytes # 0.5 10^3/uL (0.2-0.9); Monocytes % 2.8 %; Neutrophils # 15.79 10^3/uL (1.8-7.7); Neutrophils % 83.4 %; Nucleated Red Blood Cells % 0 %; Platelet Count 439 10^3/cmm (130-400); Red Blood Count 3.36 10^6/uL (4.1-5.3); Red Cell Distribution Width 12.4 % (12.1-15.1); White Blood Count 18.9 10^3/uL (4.0-10.0)
--- NOTE | 2022-07-30 16:21 | PC.NURSE ---
Patient call with his CBC reults at 0940 this AM. HCT 44, no phlebotomy for patient with less than 45 hct.
== END 2022-07-30 23:59 | disposition home or self-care (01) ==
PROVIDERS: PCP Family Medicine; Visit Provider Internal Medicine Medical Oncology
DX: D45 Polycythemia vera (principal)
CPT/HCPCS: 36415; 85025

== ENCOUNTER → 2022-08-04 08:36 | Outpatient (BNVA) | payer MEDICARE, OTHER, SELFPAY | PROVIDERS: PCP Family Medicine; Visit Provider Thoracic Surgery (Cardiothoracic Vascular Surgery) | DX: I73.9 Peripheral vascular disease, unspecified (principal); L97.322 Non-pressure chronic ulcer of left ankle with fat layer exposed | CPT/HCPCS: 11042; A6021; A6212 ==

== ENCOUNTER → 2022-08-11 08:52 | Outpatient (BNVA) | payer MEDICARE, OTHER, SELFPAY | PROVIDERS: PCP Family Medicine; Visit Provider Thoracic Surgery (Cardiothoracic Vascular Surgery) | DX: M31.9 Necrotizing vasculopathy, unspecified (principal); L97.322 Non-pressure chronic ulcer of left ankle with fat layer exposed | CPT/HCPCS: 97597 ==

== ENCOUNTER → 2022-08-18 07:50 | Outpatient (BNVA) | payer MEDICARE, OTHER, SELFPAY | PROVIDERS: PCP Family Medicine; Visit Provider Thoracic Surgery (Cardiothoracic Vascular Surgery) | DX: M31.9 Necrotizing vasculopathy, unspecified (principal); L97.322 Non-pressure chronic ulcer of left ankle with fat layer exposed; I96 Gangrene, not elsewhere classified | CPT/HCPCS: 97597; A6021 ==

== ENCOUNTER → 2022-08-25 07:56 | Outpatient (BNVA) | payer MEDICARE, OTHER, SELFPAY | PROVIDERS: PCP Family Medicine; Visit Provider Thoracic Surgery (Cardiothoracic Vascular Surgery) | DX: M31.9 Necrotizing vasculopathy, unspecified (principal); L97.322 Non-pressure chronic ulcer of left ankle with fat layer exposed | CPT/HCPCS: 97597 ==

== ENCOUNTER → 2022-09-01 08:13 | Outpatient (BNVA) | payer MEDICARE, OTHER, SELFPAY | PROVIDERS: PCP Family Medicine; Visit Provider Thoracic Surgery (Cardiothoracic Vascular Surgery) | DX: M31.9 Necrotizing vasculopathy, unspecified (principal); L97.321 Non-pressure chronic ulcer of left ankle limited to breakdown of skin | CPT/HCPCS: 97597; A6212 ==

== ENCOUNTER → 2022-09-08 07:51 | Outpatient (BNVA) | payer MEDICARE, OTHER, SELFPAY | PROVIDERS: PCP Family Medicine; Visit Provider Thoracic Surgery (Cardiothoracic Vascular Surgery) | DX: M31.9 Necrotizing vasculopathy, unspecified (principal); L97.322 Non-pressure chronic ulcer of left ankle with fat layer exposed | CPT/HCPCS: 97597; A6212 ==

== ENCOUNTER 2022-09-10 07:50 | Oncology outpatient (recurring) (ONCR) | payer MEDICARE, OTHER, SELFPAY ==
[2022-09-10 08:10] VITALS: BP 163/94; PULSE 63; RESP 18; TEMP 37.1
[2022-09-10 08:43] LABS: Alanine Aminotransferase < 5 U/L (0-41); Alkaline Phosphatase 84 U/L (40-130); Anion Gap 12.4 (5-19); Aspartate Amino Transferase 15 U/L (0-40); Blood Urea Nitrogen 20 mg/dL (8-23); Calcium 8.5 mg/dL (8.5-10.5); Carbon Dioxide 25 mmol/L (22-29); Chloride 106 mmol/L (98-107); Creatinine Clr Calc Pharmacy 71.6015; Globulin 2.6 g/dL (1.3-4.6); Glomerular Filtration Rate 74.1 mL/min (90-130); Glucose 99 mg/dL (65-115); Lactate Dehydrogenase 333 U/L (135-225); Osmolality Calculated 291 mOsm/kg (285-295); Potassium 4.4 mmol/L (3.5-5.1); Sodium 139 mmol/L (136-145); Total Bilirubin 0.4 mg/dL (0.15-1.2); Total Protein 6.6 g/dL (6.6-8.7)
[2022-09-10 10:34] LABS: Basophils # 0.1 10^3/uL (0.0-0.1); Basophils % 0.5 %; Eosinophils # 0.1 10^3/uL (0.0-0.8); Eosinophils % 0.5 %; Hematocrit 42.6 % (42.0-52.0); Hemoglobin 14.6 g/dL (11.7-16.6); Lymphocytes % 5.9 %; Mean Corpuscular HGB Conc 34.3 g/dL (30.0-36.0); Mean Corpuscular Hemoglobin 45.3 pg (28.0-34.0); Mean Corpuscular Volume 132.3 fl (80-94); Mean Platelet Volume 9.8 fL (7.4-10.4); Monocytes # 0.6 10^3/uL (0.2-0.9); Monocytes % 3.2 %; Neutrophils # 15.34 10^3/uL (1.8-7.7); Neutrophils % 88.5 %; Nucleated Red Blood Cells % 0 %; Platelet Count 349 10^3/cmm (130-400); Red Blood Count 3.22 10^6/uL (4.1-5.3); Red Cell Distribution Width 12.3 % (12.1-15.1); White Blood Count 17.3 10^3/uL (4.0-10.0)
== END 2022-09-29 23:59 | disposition home or self-care (01) ==
PROVIDERS: Nurse Practitioner Family; PCP Family Medicine; Visit Provider Internal Medicine Medical Oncology
DX: D45 Polycythemia vera (principal); I77.1 Stricture of artery; D72.829 Elevated white blood cell count, unspecified; L97.929 Non-pressure chronic ulcer of unspecified part of left lower leg with unspecified severity; Z79.899 Other long term (current) drug therapy
CPT/HCPCS: 36415; 80053; 83615; 85025; 99213

== ENCOUNTER → 2022-09-15 07:50 | Outpatient (BNVA) | payer MEDICARE, OTHER, SELFPAY | PROVIDERS: PCP Family Medicine; Visit Provider Nurse Practitioner Family | DX: M31.9 Necrotizing vasculopathy, unspecified (principal); L97.322 Non-pressure chronic ulcer of left ankle with fat layer exposed | CPT/HCPCS: 97597 ==

== ENCOUNTER → 2022-09-22 07:59 | Outpatient (BNVA) | payer MEDICARE, OTHER, SELFPAY | PROVIDERS: PCP Family Medicine; Visit Provider Thoracic Surgery (Cardiothoracic Vascular Surgery) | DX: M31.9 Necrotizing vasculopathy, unspecified (principal); L97.322 Non-pressure chronic ulcer of left ankle with fat layer exposed | CPT/HCPCS: 97597; A6212 ==

== ENCOUNTER → 2022-09-29 07:45 | Outpatient (BNVA) | payer MEDICARE, OTHER, SELFPAY | PROVIDERS: PCP Family Medicine; Visit Provider Nurse Practitioner Family | DX: M31.9 Necrotizing vasculopathy, unspecified (principal); L97.322 Non-pressure chronic ulcer of left ankle with fat layer exposed | CPT/HCPCS: 15271; A2007; A6206; A6250; C1849 ==

== ENCOUNTER → 2022-10-06 07:45 | Outpatient (BNVA) | payer MEDICARE, OTHER, SELFPAY | PROVIDERS: PCP Family Medicine; Visit Provider Thoracic Surgery (Cardiothoracic Vascular Surgery) | DX: M31.9 Necrotizing vasculopathy, unspecified (principal); L97.322 Non-pressure chronic ulcer of left ankle with fat layer exposed | CPT/HCPCS: 99212 ==

== ENCOUNTER → 2022-10-13 07:46 | Outpatient (BNVA) | payer MEDICARE, OTHER, SELFPAY | PROVIDERS: PCP Family Medicine; Visit Provider Thoracic Surgery (Cardiothoracic Vascular Surgery) | DX: M31.9 Necrotizing vasculopathy, unspecified (principal); L97.322 Non-pressure chronic ulcer of left ankle with fat layer exposed | CPT/HCPCS: 99212; A6021; A6206; A6212; A6250 ==

== ENCOUNTER → 2022-10-20 07:51 | Outpatient (BNVA) | payer MEDICARE, OTHER, SELFPAY | PROVIDERS: PCP Family Medicine; Visit Provider Thoracic Surgery (Cardiothoracic Vascular Surgery) | DX: M31.9 Necrotizing vasculopathy, unspecified (principal); L97.322 Non-pressure chronic ulcer of left ankle with fat layer exposed | CPT/HCPCS: 99213 ==

== ENCOUNTER 2022-10-22 07:45 | Oncology outpatient (recurring) (ONCR) | payer MEDICARE, OTHER, SELFPAY ==
[2022-10-22 09:06] VITALS: BP 151/78; PULSE 54; RESP 18; TEMP 36.8; O2SAT 96
[2022-10-22 09:25] LABS: Basophils # 0.1 10^3/uL (0.0-0.1); Basophils % 0.5 %; Eosinophils # 0.1 10^3/uL (0.0-0.8); Eosinophils % 0.6 %; Hematocrit 40.6 % (37-53); Lymphocytes # 1.4 10^3/uL (0.8-4.8); Lymphocytes % 8.4 %; Mean Corpuscular HGB Conc 35.2 g/dL (30-55); Mean Corpuscular Hemoglobin 46.7 pg (27-33); Mean Corpuscular Volume 132.7 fl (82-101); Mean Platelet Volume 9.9 fL (7.4-10.4); Monocytes # 0.6 10^3/uL (0.2-0.9); Monocytes % 3.8 %; Neutrophils % 84.7 %; Nucleated Red Blood Cells % 0 %; Platelet Count 326 10^3/cmm (157-399); Red Blood Count 3.06 10^6/uL (3.85-5.65); Red Cell Distribution Width 12.7 % (12.1-15.1); White Blood Count 16.76 10^3/uL (3.29-11.43)
== END 2022-10-30 23:59 | disposition home or self-care (01) ==
LOC: ONCMED 07:45
PROVIDERS: Nurse Practitioner Family; PCP Family Medicine; Visit Provider Internal Medicine Medical Oncology
DX: D45 Polycythemia vera (principal)
CPT/HCPCS: 36415; 85025

== ENCOUNTER → 2022-10-27 07:52 | Outpatient (BNVA) | payer MEDICARE, OTHER, SELFPAY | PROVIDERS: PCP Family Medicine; Visit Provider Thoracic Surgery (Cardiothoracic Vascular Surgery) | DX: M31.9 Necrotizing vasculopathy, unspecified (principal); L97.322 Non-pressure chronic ulcer of left ankle with fat layer exposed | CPT/HCPCS: 97597; A6021 ==

== ENCOUNTER → 2022-11-10 07:48 | Outpatient (BNVA) | payer MEDICARE, OTHER, SELFPAY | PROVIDERS: PCP Family Medicine; Visit Provider Thoracic Surgery (Cardiothoracic Vascular Surgery) | DX: M31.9 Necrotizing vasculopathy, unspecified (principal); L97.322 Non-pressure chronic ulcer of left ankle with fat layer exposed | CPT/HCPCS: 97597; A6021 ==

== ENCOUNTER → 2022-11-17 07:51 | Outpatient (BNVA) | payer MEDICARE, OTHER, SELFPAY | PROVIDERS: PCP Family Medicine; Visit Provider Nurse Practitioner Family | DX: M31.9 Necrotizing vasculopathy, unspecified (principal); L97.322 Non-pressure chronic ulcer of left ankle with fat layer exposed | CPT/HCPCS: 11042; A6021; A6212 ==

== ENCOUNTER → 2022-11-24 07:52 | Outpatient (BNVA) | payer MEDICARE, OTHER, SELFPAY | PROVIDERS: PCP Family Medicine; Visit Provider Thoracic Surgery (Cardiothoracic Vascular Surgery) | DX: M31.9 Necrotizing vasculopathy, unspecified (principal); L97.322 Non-pressure chronic ulcer of left ankle with fat layer exposed | CPT/HCPCS: 97597; A6212 ==

== ENCOUNTER → 2022-12-01 08:38 | Outpatient (BNVA) | payer MEDICARE, OTHER, SELFPAY | PROVIDERS: PCP Family Medicine; Visit Provider Thoracic Surgery (Cardiothoracic Vascular Surgery) | DX: M31.9 Necrotizing vasculopathy, unspecified (principal); L97.322 Non-pressure chronic ulcer of left ankle with fat layer exposed | CPT/HCPCS: 97597 ==

== ENCOUNTER → 2022-12-08 08:30 | Outpatient (BNVA) | payer MEDICARE, OTHER, SELFPAY | PROVIDERS: PCP Family Medicine; Visit Provider Thoracic Surgery (Cardiothoracic Vascular Surgery) | DX: M31.9 Necrotizing vasculopathy, unspecified (principal); L97.322 Non-pressure chronic ulcer of left ankle with fat layer exposed | CPT/HCPCS: 97597; A6212 ==

== ENCOUNTER → 2022-12-15 08:38 | Outpatient (BNVA) | payer MEDICARE, OTHER, SELFPAY | PROVIDERS: PCP Family Medicine; Visit Provider Thoracic Surgery (Cardiothoracic Vascular Surgery) | DX: M31.9 Necrotizing vasculopathy, unspecified (principal); L97.322 Non-pressure chronic ulcer of left ankle with fat layer exposed | CPT/HCPCS: 97597; A6212; A6219 ==

== ENCOUNTER 2022-12-17 09:42 | Oncology outpatient (recurring) (ONCR) | payer MEDICARE, OTHER, SELFPAY ==
[2022-12-17 10:14] VITALS: BP 157/83; PULSE 67; RESP 16; TEMP 37.2; O2SAT 91
[2022-12-17 10:39] LABS: Basophils # 0.1 10^3/uL (0.0-0.1); Basophils % 0.5 %; Eosinophils # 0.1 10^3/uL (0.0-0.8); Eosinophils % 0.6 %; Hematocrit 40.6 % (37-53); Lymphocytes % 8.4 %; Mean Corpuscular HGB Conc 34.7 g/dL (30-55); Mean Corpuscular Hemoglobin 45.9 pg (27-33); Mean Corpuscular Volume 132.2 fl (82-101); Mean Platelet Volume 10.2 fL (7.4-10.4); Monocytes # 0.5 10^3/uL (0.2-0.9); Monocytes % 4.1 %; Neutrophils # 10.48 10^3/uL (1.8-7.7); Neutrophils % 85.2 %; Nucleated Red Blood Cells % 0 %; Platelet Count 355 10^3/cmm (157-399); Red Blood Count 3.07 10^6/uL (3.85-5.65); Red Cell Distribution Width 11.9 % (12.1-15.1)
[2022-12-17 11:04] LABS: Alanine Aminotransferase 10 U/L (0-41); Albumin Level 4.2 g/dL (3.5-5.2); Alkaline Phosphatase 91 U/L (40-130); Anion Gap 14.2 (5-19); Aspartate Amino Transferase 18 U/L (0-40); Blood Urea Nitrogen 23 mg/dL (8-23); Calcium 11.1 mg/dL (8.5-10.5); Carbon Dioxide 25 mmol/L (22-29); Chloride 101 mmol/L (98-107); Globulin 3.1 g/dL (1.3-4.6); Glomerular Filtration Rate 74.1 mL/min (90-130); Glucose 108 mg/dL (65-115); Lactate Dehydrogenase 384 U/L (135-225); Osmolality Calculated 284 mOsm/kg (285-295); Potassium 5.2 mmol/L (3.5-5.1); Sodium 135 mmol/L (136-145); Total Bilirubin 0.5 mg/dL (0.15-1.2); Total Protein 7.3 g/dL (6.6-8.7)
== END 2022-12-30 23:59 | disposition home or self-care (01) ==
PROVIDERS: Nurse Practitioner Family; PCP Family Medicine; Visit Provider Internal Medicine Medical Oncology
DX: D45 Polycythemia vera (principal); Z79.899 Other long term (current) drug therapy
CPT/HCPCS: 36415; 80053; 83615; 85025; 99214

== ENCOUNTER → 2022-12-22 08:31 | Outpatient (BNVA) | payer MEDICARE, OTHER, SELFPAY | PROVIDERS: PCP Family Medicine; Visit Provider Nurse Practitioner Family | DX: M31.9 Necrotizing vasculopathy, unspecified (principal); L97.322 Non-pressure chronic ulcer of left ankle with fat layer exposed | CPT/HCPCS: 97597; A6212 ==

== ENCOUNTER → 2022-12-29 07:51 | Outpatient (BNVA) | payer MEDICARE, OTHER, SELFPAY | PROVIDERS: PCP Family Medicine; Visit Provider Thoracic Surgery (Cardiothoracic Vascular Surgery) | DX: M31.9 Necrotizing vasculopathy, unspecified (principal); L97.322 Non-pressure chronic ulcer of left ankle with fat layer exposed | CPT/HCPCS: 97597; A6212 ==

== ENCOUNTER → 2023-01-05 07:48 | Outpatient (BNVA) | payer MEDICARE, OTHER, SELFPAY | PROVIDERS: PCP Family Medicine; Visit Provider Thoracic Surgery (Cardiothoracic Vascular Surgery) | DX: M31.9 Necrotizing vasculopathy, unspecified (principal); L97.322 Non-pressure chronic ulcer of left ankle with fat layer exposed | CPT/HCPCS: 97597; A6212 ==

== ENCOUNTER → 2023-01-12 08:46 | Outpatient (BNVA) | payer MEDICARE, OTHER, SELFPAY | PROVIDERS: PCP Family Medicine; Visit Provider Thoracic Surgery (Cardiothoracic Vascular Surgery) | DX: M31.9 Necrotizing vasculopathy, unspecified (principal); L97.322 Non-pressure chronic ulcer of left ankle with fat layer exposed | CPT/HCPCS: 97597; A6212 ==

== ENCOUNTER → 2023-01-19 08:44 | Outpatient (BNVA) | payer MEDICARE, OTHER, SELFPAY | PROVIDERS: PCP Family Medicine; Visit Provider Thoracic Surgery (Cardiothoracic Vascular Surgery) | DX: M31.9 Necrotizing vasculopathy, unspecified (principal); L97.322 Non-pressure chronic ulcer of left ankle with fat layer exposed | CPT/HCPCS: 97597; A6212 ==

== ENCOUNTER → 2023-01-26 09:49 | Outpatient (BNVA) | payer MEDICARE, OTHER, SELFPAY | PROVIDERS: PCP Family Medicine; Visit Provider Nurse Practitioner Family | DX: M31.9 Necrotizing vasculopathy, unspecified (principal); L97.322 Non-pressure chronic ulcer of left ankle with fat layer exposed | CPT/HCPCS: 97597; A6212 ==

== ENCOUNTER 2023-01-28 08:48 | Oncology outpatient (recurring) (ONCR) | payer MEDICARE, OTHER, SELFPAY ==
[2023-01-28 09:05] VITALS: BP 145/85; PULSE 55; RESP 16; TEMP 37.1
[2023-01-28 09:19] LABS: Basophils # 0.1 10^3/uL (0.0-0.1); Basophils % 0.6 %; Eosinophils # 0.1 10^3/uL (0.0-0.8); Eosinophils % 0.5 %; Hematocrit 41.7 % (37-53); Lymphocytes # 1.4 10^3/uL (0.8-4.8); Lymphocytes % 9.4 %; Mean Corpuscular Hemoglobin 46.2 pg (27-33); Mean Platelet Volume 10.1 fL (7.4-10.4); Monocytes # 0.6 10^3/uL (0.2-0.9); Monocytes % 3.9 %; Neutrophils % 83.1 %; Nucleated Red Blood Cells % 0 %; Platelet Count 345 10^3/cmm (157-399); Red Blood Count 3.16 10^6/uL (3.85-5.65); White Blood Count 15.04 10^3/uL (3.29-11.43)
== END 2023-01-29 23:59 | disposition home or self-care (01) ==
LOC: ONCMED 08:49
PROVIDERS: PCP Family Medicine; Visit Provider Internal Medicine Medical Oncology
DX: D45 Polycythemia vera (principal)
CPT/HCPCS: 36415; 85025

== ENCOUNTER → 2023-02-02 09:03 | Outpatient (BNVA) | payer MEDICARE, OTHER, SELFPAY | PROVIDERS: PCP Family Medicine; Visit Provider Thoracic Surgery (Cardiothoracic Vascular Surgery) | DX: M31.9 Necrotizing vasculopathy, unspecified (principal); L97.322 Non-pressure chronic ulcer of left ankle with fat layer exposed | CPT/HCPCS: 97597; A6219 ==

== ENCOUNTER → 2023-02-09 08:50 | Outpatient (BNVA) | payer MEDICARE, OTHER, SELFPAY | PROVIDERS: PCP Family Medicine; Visit Provider Thoracic Surgery (Cardiothoracic Vascular Surgery) | DX: M31.9 Necrotizing vasculopathy, unspecified (principal); L97.322 Non-pressure chronic ulcer of left ankle with fat layer exposed | CPT/HCPCS: 97597; A6212 ==

== ENCOUNTER → 2023-02-16 09:50 | Outpatient (BNVA) | payer MEDICARE, OTHER, SELFPAY | PROVIDERS: PCP Family Medicine; Visit Provider Thoracic Surgery (Cardiothoracic Vascular Surgery) | DX: M31.9 Necrotizing vasculopathy, unspecified (principal); L97.322 Non-pressure chronic ulcer of left ankle with fat layer exposed | CPT/HCPCS: 97597; A6212 ==

== ENCOUNTER → 2023-03-05 09:57 | Outpatient (BNVA) | payer MEDICARE, OTHER, SELFPAY | PROVIDERS: PCP Family Medicine; Visit Provider Nurse Practitioner Family | DX: M31.9 Necrotizing vasculopathy, unspecified (principal); L97.322 Non-pressure chronic ulcer of left ankle with fat layer exposed | CPT/HCPCS: 97597; A6212 ==

== ENCOUNTER 2023-03-10 11:51 | Oncology outpatient (recurring) (ONCR) | payer MEDICARE, OTHER, SELFPAY ==
[2023-03-10 12:40] VITALS: BP 131/82; PULSE 57; RESP 16; TEMP 37.4
[2023-03-10 12:47] LABS: Basophils # 0.1 10^3/uL (0.0-0.1); Basophils % 0.6 %; Eosinophils # 0.1 10^3/uL (0.0-0.8); Eosinophils % 0.5 %; Hematocrit 42.6 % (37-53); Lymphocytes # 1.2 10^3/uL (0.8-4.8); Lymphocytes % 6.8 %; Mean Corpuscular HGB Conc 35.2 g/dL (30-55); Mean Corpuscular Hemoglobin 45.7 pg (27-33); Mean Corpuscular Volume 129.9 fl (82-101); Mean Platelet Volume 9.9 fL (7.4-10.4); Monocytes # 0.6 10^3/uL (0.2-0.9); Monocytes % 3.3 %; Neutrophils # 15.86 10^3/uL (1.8-7.7); Neutrophils % 87.4 %; Nucleated Red Blood Cells % 0 %; Platelet Count 391 10^3/cmm (157-399); Red Blood Count 3.28 10^6/uL (3.85-5.65); White Blood Count 18.13 10^3/uL (3.29-11.43)
[2023-03-10 13:09] LABS: Alanine Aminotransferase 9 U/L (0-41); Albumin Level 3.9 g/dL (3.5-5.2); Alkaline Phosphatase 81 U/L (40-130); Anion Gap 14.2 (5-19); Aspartate Amino Transferase 17 U/L (0-40); Blood Urea Nitrogen 22 mg/dL (8-23); Calcium 9.1 mg/dL (8.5-10.5); Carbon Dioxide 27 mmol/L (22-29); Chloride 103 mmol/L (98-107); Globulin 2.8 g/dL (1.3-4.6); Glomerular Filtration Rate 66.4 mL/min (90-130); Glucose 87 mg/dL (65-115); Lactate Dehydrogenase 243 U/L (135-225); Osmolality Calculated 291 mOsm/kg (285-295); Potassium 5.2 mmol/L (3.5-5.1); Sodium 139 mmol/L (136-145); Total Bilirubin 0.4 mg/dL (0.15-1.2); Total Protein 6.7 g/dL (6.6-8.7)
== END 2023-04-01 23:59 | disposition home or self-care (01) ==
PROVIDERS: PCP Family Medicine; Visit Provider Internal Medicine Medical Oncology
DX: D45 Polycythemia vera (principal); Z79.899 Other long term (current) drug therapy
CPT/HCPCS: 36415; 80053; 83615; 85025; 99213

== ENCOUNTER → 2023-03-30 09:10 | Outpatient (BNVA) | payer MEDICARE, OTHER, SELFPAY | PROVIDERS: PCP Family Medicine; Visit Provider Thoracic Surgery (Cardiothoracic Vascular Surgery) | DX: M31.9 Necrotizing vasculopathy, unspecified (principal); L97.322 Non-pressure chronic ulcer of left ankle with fat layer exposed | CPT/HCPCS: 11042 ==

== ENCOUNTER → 2023-04-07 08:54 | Outpatient (BNVA) | payer MEDICARE, OTHER, SELFPAY | PROVIDERS: PCP Family Medicine; Visit Provider Thoracic Surgery (Cardiothoracic Vascular Surgery) | DX: M31.9 Necrotizing vasculopathy, unspecified (principal); L97.322 Non-pressure chronic ulcer of left ankle with fat layer exposed | CPT/HCPCS: 11042 ==

== ENCOUNTER 2023-04-21 07:23 | Oncology outpatient (recurring) (ONCR) | payer MEDICARE, OTHER, SELFPAY ==
[2023-04-21 08:16] LABS: Basophils # 0.1 10^3/uL (0.0-0.1); Basophils % 0.7 %; Eosinophils # 0.1 10^3/uL (0.0-0.8); Eosinophils % 0.7 %; Hematocrit 40.9 % (37-53); Lymphocytes # 1.6 10^3/uL (0.8-4.8); Lymphocytes % 10.7 %; Mean Corpuscular Hemoglobin 46.3 pg (27-33); Mean Corpuscular Volume 132.4 fl (82-101); Mean Platelet Volume 9.9 fL (7.4-10.4); Monocytes # 0.5 10^3/uL (0.2-0.9); Monocytes % 3.3 %; Neutrophils % 82.5 %; Nucleated Red Blood Cells % 0 %; Platelet Count 357 10^3/cmm (157-399); Red Blood Count 3.09 10^6/uL (3.85-5.65); Red Cell Distribution Width 12.8 % (12.1-15.1); White Blood Count 15.01 10^3/uL (3.29-11.43)
[2023-04-21 08:39] LABS: Alanine Aminotransferase 11 U/L (0-41); Albumin Level 3.9 g/dL (3.5-5.2); Alkaline Phosphatase 83 U/L (40-130); Anion Gap 11.7 (5-19); Aspartate Amino Transferase 19 U/L (0-40); Blood Urea Nitrogen 25 mg/dL (8-23); Calcium 8.6 mg/dL (8.5-10.5); Carbon Dioxide 25 mmol/L (22-29); Chloride 104 mmol/L (98-107); Globulin 2.6 g/dL (1.3-4.6); Glomerular Filtration Rate 66.4 mL/min (90-130); Glucose 105 mg/dL (65-115); Osmolality Calculated 287 mOsm/kg (285-295); Potassium 4.7 mmol/L (3.5-5.1); Sodium 136 mmol/L (136-145); Total Bilirubin 0.3 mg/dL (0.15-1.2); Total Protein 6.5 g/dL (6.6-8.7)
[2023-04-21 08:44] LABS: Lactate Dehydrogenase 230 U/L (135-225)
== END 2023-04-30 23:59 | disposition home or self-care (01) ==
LOC: ONCMED 07:24
PROVIDERS: Internal Medicine; PCP Family Medicine; Visit Provider Internal Medicine Medical Oncology
DX: D45 Polycythemia vera (principal); Z79.899 Other long term (current) drug therapy; L97.822 Non-pressure chronic ulcer of other part of left lower leg with fat layer exposed
CPT/HCPCS: 36415; 80053; 83615; 85025; 97597; A6212

== ENCOUNTER → 2023-05-05 07:51 | Outpatient (BNVA) | payer MEDICARE, OTHER, SELFPAY | PROVIDERS: PCP Family Medicine; Visit Provider Thoracic Surgery (Cardiothoracic Vascular Surgery) | DX: M31.9 Necrotizing vasculopathy, unspecified (principal); L97.322 Non-pressure chronic ulcer of left ankle with fat layer exposed | CPT/HCPCS: 97597 ==

== ENCOUNTER 2023-06-19 07:53 | Oncology outpatient (recurring) (ONCR) | payer MEDICARE, OTHER, SELFPAY ==
[2023-06-19 08:14] LABS: Basophils # 0.1 10^3/uL (0.0-0.1); Basophils % 0.5 %; Eosinophils # 0.1 10^3/uL (0.0-0.8); Eosinophils % 0.5 %; Lymphocytes # 1.4 10^3/uL (0.8-4.8); Lymphocytes % 11.8 %; Mean Corpuscular HGB Conc 35.7 g/dL (30-55); Mean Corpuscular Hemoglobin 48.1 pg (27-33); Mean Corpuscular Volume 134.6 fl (82-101); Mean Platelet Volume 9.6 fL (7.4-10.4); Monocytes # 0.4 10^3/uL (0.2-0.9); Monocytes % 3.6 %; Neutrophils # 9.61 10^3/uL (1.8-7.7); Neutrophils % 81.8 %; Nucleated Red Blood Cells % 0 %; Platelet Count 261 10^3/cmm (157-399); Red Cell Distribution Width 14.5 % (12.1-15.1); White Blood Count 11.74 10^3/uL (3.29-11.43)
[2023-06-19 08:41] LABS: Alanine Aminotransferase 13 U/L (0-41); Albumin Level 3.9 g/dL (3.5-5.2); Alkaline Phosphatase 77 U/L (40-130); Anion Gap 10.8 (5-19); Aspartate Amino Transferase 17 U/L (0-40); Blood Urea Nitrogen 29 mg/dL (8-23); Calcium 8.6 mg/dL (8.5-10.5); Carbon Dioxide 24 mmol/L (22-29); Chloride 105 mmol/L (98-107); Globulin 2.6 g/dL (1.3-4.6); Glomerular Filtration Rate 66.2 mL/min (90-130); Glucose 95 mg/dL (65-115); Lactate Dehydrogenase 262 U/L (135-225); Osmolality Calculated 286 mOsm/kg (285-295); Potassium 4.8 mmol/L (3.5-5.1); Sodium 135 mmol/L (136-145); Total Bilirubin 0.5 mg/dL (0.15-1.2); Total Protein 6.5 g/dL (6.6-8.7)
== END 2023-06-30 23:59 | disposition home or self-care (01) ==
PROVIDERS: Internal Medicine; PCP Family Medicine; Visit Provider Internal Medicine Medical Oncology
DX: D45 Polycythemia vera (principal); L97.822 Non-pressure chronic ulcer of other part of left lower leg with fat layer exposed
CPT/HCPCS: 36415; 80053; 83615; 85025; 99213

== ENCOUNTER 2023-07-31 08:06 | Oncology outpatient (recurring) (ONCR) | payer MEDICARE, OTHER, SELFPAY ==
[2023-07-31 08:43] LABS: Basophils # 0.1 10^3/uL (0.0-0.1); Basophils % 0.5 %; Eosinophils # 0.1 10^3/uL (0.0-0.8); Eosinophils % 0.6 %; Hematocrit 37.5 % (37-53); Lymphocytes # 1.6 10^3/uL (0.8-4.8); Lymphocytes % 14.5 %; Mean Corpuscular HGB Conc 35.2 g/dL (30-55); Mean Corpuscular Hemoglobin 48.7 pg (27-33); Mean Corpuscular Volume 138.4 fl (82-101); Mean Platelet Volume 10.1 fL (7.4-10.4); Monocytes # 0.4 10^3/uL (0.2-0.9); Neutrophils # 8.57 10^3/uL (1.8-7.7); Neutrophils % 78.4 %; Nucleated Red Blood Cells % 0 %; Platelet Count 309 10^3/cmm (157-399); Red Blood Count 2.71 10^6/uL (3.85-5.65); Red Cell Distribution Width 13.1 % (12.1-15.1); White Blood Count 10.95 10^3/uL (3.29-11.43)
== END 2023-07-31 23:59 | disposition home or self-care (01) ==
PROVIDERS: Nurse Practitioner Family; PCP Family Medicine; Visit Provider Internal Medicine Medical Oncology
DX: D45 Polycythemia vera (principal)
CPT/HCPCS: 36415; 85025

== ENCOUNTER 2023-09-18 08:09 | Oncology outpatient (recurring) (ONCR) | payer MEDICARE, OTHER, SELFPAY ==
[2023-09-18 08:36] LABS: Basophils # 0.1 10^3/uL (0.0-0.1); Basophils % 0.6 %; Eosinophils # 0.1 10^3/uL (0.0-0.8); Eosinophils % 0.5 %; Hematocrit 37.7 % (37-53); Lymphocytes % 9.9 %; Mean Corpuscular HGB Conc 35.5 g/dL (30-55); Mean Corpuscular Hemoglobin 49.4 pg (27-33); Mean Corpuscular Volume 139.1 fl (82-101); Mean Platelet Volume 10.2 fL (7.4-10.4); Monocytes # 0.4 10^3/uL (0.2-0.9); Neutrophils # 8.47 10^3/uL (1.8-7.7); Neutrophils % 83.5 %; Nucleated Red Blood Cells % 0 %; Platelet Count 310 10^3/cmm (157-399); Red Blood Count 2.71 10^6/uL (3.85-5.65); Red Cell Distribution Width 12.5 % (12.1-15.1); White Blood Count 10.14 10^3/uL (3.29-11.43)
[2023-09-18 09:00] LABS: Blood Urea Nitrogen 24 mg/dL (8-23); Carbon Dioxide 23 mmol/L (22-29); Chloride 101 mmol/L (98-107); Glomerular Filtration Rate 66.2 mL/min (90-130); Glucose 104 mg/dL (65-115); Osmolality Calculated 284 mOsm/kg (285-295); Sodium 135 mmol/L (136-145); Total Bilirubin 0.4 mg/dL (0.15-1.2)
[2023-09-18 09:01] LABS: Alanine Aminotransferase 13 U/L (0-41); Albumin Level 4.1 g/dL (3.5-5.2); Alkaline Phosphatase 74 U/L (40-130); Aspartate Amino Transferase 21 U/L (0-40); Globulin 2.7 g/dL (1.3-4.6); Lactate Dehydrogenase 278 U/L (135-225); Total Protein 6.8 g/dL (6.6-8.7)
== END 2023-09-30 23:59 | disposition home or self-care (01) ==
PROVIDERS: Nurse Practitioner Family; PCP Family Medicine; Visit Provider Internal Medicine Medical Oncology
DX: D45 Polycythemia vera (principal); Z79.899 Other long term (current) drug therapy; L97.829 Non-pressure chronic ulcer of other part of left lower leg with unspecified severity; Z79.64 Long term (current) use of myelosuppressive agent
CPT/HCPCS: 36415; 80053; 83615; 85025; 99214

== ENCOUNTER → 2023-10-22 13:09 | Outpatient (BNVA) | payer MEDICARE, OTHER, SELFPAY | PROVIDERS: PCP Family Medicine; Referring Provider Family Medicine; Visit Provider Dermatology | DX: D48.5 Neoplasm of uncertain behavior of skin (principal); D45 Polycythemia vera; L82.1 Other seborrheic keratosis; L57.0 Actinic keratosis; D18.01 Hemangioma of skin and subcutaneous tissue | CPT/HCPCS: 11102; 17000; 99203 ==

== ENCOUNTER 2023-10-30 07:45 | Oncology outpatient (recurring) (ONCR) | payer MEDICARE, OTHER, SELFPAY ==
[2023-10-30 08:10] LABS: Basophils # 0.1 10^3/uL (0.0-0.1); Basophils % 0.5 %; Eosinophils # 0.1 10^3/uL (0.0-0.8); Eosinophils % 0.4 %; Hematocrit 36.5 % (37-53); Lymphocytes # 1.3 10^3/uL (0.8-4.8); Lymphocytes % 10.9 %; Mean Corpuscular HGB Conc 34.5 g/dL (30-55); Mean Corpuscular Hemoglobin 48.8 pg (27-33); Mean Corpuscular Volume 141.5 fl (82-101); Mean Platelet Volume 10.3 fL (7.4-10.4); Monocytes # 0.5 10^3/uL (0.2-0.9); Monocytes % 4.3 %; Neutrophils % 82.5 %; Nucleated Red Blood Cells % 0 %; Platelet Count 295 10^3/cmm (157-399); Red Blood Count 2.58 10^6/uL (3.85-5.65); Red Cell Distribution Width 13.8 % (12.1-15.1); White Blood Count 11.52 10^3/uL (3.29-11.43)
[2023-10-30 08:32] LABS: Alanine Aminotransferase 12 U/L (0-41); Albumin Level 3.9 g/dL (3.5-5.2); Alkaline Phosphatase 73 U/L (40-130); Anion Gap 12.5 (5-19); Aspartate Amino Transferase 20 U/L (0-40); Blood Urea Nitrogen 22 mg/dL (8-23); Calcium 8.5 mg/dL (8.5-10.5); Carbon Dioxide 23 mmol/L (22-29); Chloride 107 mmol/L (98-107); Globulin 2.4 g/dL (1.3-4.6); Glomerular Filtration Rate 66.2 mL/min (90-130); Glucose 99 mg/dL (65-115); Osmolality Calculated 289 mOsm/kg (285-295); Potassium 4.5 mmol/L (3.5-5.1); Sodium 138 mmol/L (136-145); Total Bilirubin 0.4 mg/dL (0.15-1.2); Total Protein 6.3 g/dL (6.6-8.7)
== END 2023-10-31 23:59 | disposition home or self-care (01) ==
PROVIDERS: Nurse Practitioner Family; PCP Family Medicine; Visit Provider Internal Medicine Medical Oncology
DX: D45 Polycythemia vera (principal); Z79.64 Long term (current) use of myelosuppressive agent
CPT/HCPCS: 36415; 80053; 85025

== ENCOUNTER → 2023-11-09 08:11 | Outpatient (BNVA) | payer MEDICARE, OTHER, SELFPAY | PROVIDERS: PCP Family Medicine; Visit Provider Dermatology | DX: C44.319 Basal cell carcinoma of skin of other parts of face (principal) | CPT/HCPCS: 13132; 17311; 99213 ==

== ENCOUNTER 2023-12-18 07:46 | Oncology outpatient (recurring) (ONCR) | payer MEDICARE, OTHER, SELFPAY ==
[2023-12-18 08:14] LABS: Basophils # 0.2 10^3/uL (0.0-0.1); Basophils % 0.8 %; Eosinophils # 0.2 10^3/uL (0.0-0.8); Eosinophils % 0.8 %; Hematocrit 42.3 % (37-53); Lymphocytes % 10.4 %; Mean Corpuscular HGB Conc 35.2 g/dL (30-55); Mean Corpuscular Hemoglobin 48.1 pg (27-33); Mean Corpuscular Volume 136.5 fl (82-101); Monocytes # 0.7 10^3/uL (0.2-0.9); Monocytes % 3.4 %; Neutrophils # 15.62 10^3/uL (1.8-7.7); Neutrophils % 82.1 %; Nucleated Red Blood Cells % 0 %; Platelet Count 424 10^3/cmm (157-399); Red Cell Distribution Width 11.9 % (12.1-15.1); White Blood Count 19.05 10^3/uL (3.29-11.43)
[2023-12-18 08:34] LABS: Alanine Aminotransferase 11 U/L (0-41); Albumin Level 4.1 g/dL (3.5-5.2); Alkaline Phosphatase 84 U/L (40-130); Anion Gap 12.1 (5-19); Aspartate Amino Transferase 15 U/L (0-40); Blood Urea Nitrogen 21 mg/dL (8-23); Calcium 8.6 mg/dL (8.5-10.5); Carbon Dioxide 27 mmol/L (22-29); Chloride 103 mmol/L (98-107); Creatinine Clr Calc Pharmacy 62.5719; Globulin 2.7 g/dL (1.3-4.6); Glomerular Filtration Rate 66.2 mL/min (90-130); Glucose 95 mg/dL (65-115); Osmolality Calculated 289 mOsm/kg (285-295); Potassium 4.1 mmol/L (3.5-5.1); Sodium 138 mmol/L (136-145); Total Bilirubin 0.4 mg/dL (0.15-1.2); Total Protein 6.8 g/dL (6.6-8.7)
== END 2023-12-31 23:59 | disposition home or self-care (01) ==
PROVIDERS: Nurse Practitioner Family; PCP Family Medicine; Visit Provider Internal Medicine Medical Oncology
DX: D45 Polycythemia vera (principal); Z79.64 Long term (current) use of myelosuppressive agent
CPT/HCPCS: 36415; 80053; 85025; 99213

== ENCOUNTER → 2024-01-11 07:55 | Outpatient (BNVA) | payer MEDICARE, OTHER, SELFPAY | PROVIDERS: PCP Family Medicine; Visit Provider Dermatology | DX: D48.5 Neoplasm of uncertain behavior of skin (principal); R23.1 Pallor; C44.319 Basal cell carcinoma of skin of other parts of face; Z85.828 Personal history of other malignant neoplasm of skin | CPT/HCPCS: 11102; 99214 ==

== ENCOUNTER 2024-01-27 09:47 | Oncology outpatient (recurring) (ONCR) | payer MEDICARE, OTHER, SELFPAY ==
--- NOTE | 2024-01-13 09:37 | N.ONRAD NP_ITS ---
Radiation Oncology New Patient Visit Patient: John Tsai MR#: [id number] : 1955 Age: 68 Sex: Male Dictated by: Dr. Fani Elmore Date of Service: 01/13/2024 Referring Physician(s) : Dr. Arabella Weber Diagnosis: D45 - polycythemia vera, Diagnosed 04/11/2015 (active). Basal cell carcinoma the skin Radiotherapy to date: Summary > No prior radiation therapy. Chief Complaint / History of Present Illness: Patient is a 68-year-old gentleman who had his first skin cancer about 4 5 years ago. He is on hydroxyurea for his polycythemia vera. He recently had 3 lesions removed and has 1 biopsy currently pending. He had a lesion on the left baptist just at the hairline which pathologically was a basal cell of nodular variety. He had a Mohs procedure done on this lesion and in the final specimen there was PNI. He also had a lesion removed from the right forehead and has a large diffuse area on the left forehead which she is using Efudex on. He is here today in consultation to discuss treatment to the left baptist where the PNI was located. Current Medications: Childrens Aspirin, hydroxyurea, hydroxyurea, pletal. Allergies: Iodine. Medical History: Hypertension. MRSA positive, polycythemia vera, no history of collagen vascular disease. No previous radiation therapy. Surgical History: Excision of mast on left knee and skin lesion biopsy lateral left anle in 2017. Family History: Positive for prostate cancer and brain tumor Social History: Last screened on 05/22/2021 - Never smoked. Last screened on 05/22/2021 - Never drank. Patient indicated access to the following support systems: lives with spouse, significant other, family, or friends, lives in own house, supportive family/friends willing to assist with needs, and adequate transportation available for expected visits. Patient indicated the following nutritional habits: regular meals. Patient indicated participation in the following forms of activity: daily activities. Current Complaints / Review of Systems: . Vital Signs: Performed on 01/13/2024 8:24 AM BMI - 24.815 kg/m2 (high), Height - 68 in, Weight - 163.2 lbs, Temperature - 97.6 f, Pulse - 58 /min (low), Respiration - 18 /min, Pain - 0, Fatigue - 0 and BP - 165/ 87 mm(hg)(high/). Physical Exam: General: Patient is in no apparent distress. He is accompanied today by his . HEENT: Normocephalic atraumatic. Pupils are equal, sclera clear, extraocular muscles intact. He has a red area that measures approximately 8 x 6 cm across the left forehead. He has a small scar actually in the hairline on the left baptist without nodularity or underlying changes. He has a lesion on his cheek which has been recently biopsied on the left. He also has 3 lesions across the bridge of his nose which have been previously addressed. Pulmonary: Respiratory rate is regular nonlabored Cardiovascular: Regular rate and rhythm Abdomen: Abdomen is fairly flat with minimal adipose tissue Extremities: Without obvious edema or lymphedema Neurological: Alert and orient x 3. Gait and speech within normal limits Psych: Patient is quite anxious today. Performance Status: 100 Pathology: Primary, d45 - polycythemia vera, Diagnosed 04/11/2015 (active) . Lab: Imaging: See HPI Impression: Nodular basal cell carcinoma with PNI at the left baptist Plan: I reviewed with the patient the findings on the pathology. We discussed the meaning of PNI. We discussed the risk of recurrence being slightly increased with this finding on the pathology. We discussed the options from observation to proceeding with radiation to the area. I reviewed with him the simulation process. We discussed the daily treatment regiment. We reviewed the risks and side effects both acute and long-term. We talked about using a very low energy electron which would not penetrate beyond just the superficial skin. After some discussion he has tentatively agreed to proceed with treatment. I did encourage him to think about what he would like to do for a day or 2. Will have him return for simulation at that point and proceed with a 2 to 3-week course of treatment to the left baptist. Signed by: 01/13/2024 9:35:28 AM <<Signature on File>> Time spent with patient:45 CPT Code: CPT Code:
[2024-01-26 08:16] LABS: Basophils # 0.1 10^3/uL (0.0-0.1); Basophils % 0.6 %; Eosinophils # 0.2 10^3/uL (0.0-0.8); Eosinophils % 0.8 %; Lymphocytes # 1.4 10^3/uL (0.8-4.8); Lymphocytes % 7.6 %; Mean Corpuscular HGB Conc 34.9 g/dL (30-55); Mean Corpuscular Hemoglobin 44.8 pg (27-33); Mean Corpuscular Volume 128.4 fl (82-101); Mean Platelet Volume 9.7 fL (7.4-10.4); Monocytes # 0.6 10^3/uL (0.2-0.9); Monocytes % 3.1 %; Neutrophils % 85.7 %; Nucleated Red Blood Cells % 0 %; Platelet Count 371 10^3/cmm (157-399); Red Blood Count 3.35 10^6/uL (3.85-5.65); Red Cell Distribution Width 11.8 % (12.1-15.1); White Blood Count 18.91 10^3/uL (3.29-11.43)
--- NOTE | 2024-01-26 10:04 | ONCRAD TMN_ITS ---
Radiation Oncology Weekly Treatment Management Patient: John Tsai MR#: [id number] : 1955 Attending Physician: Dr. Fani Elmore Date of Service: 01/26/2024 Fractions: 5 of 13 to the left latter day and 2 of 10 to the left cheek Referring Physician(s) : Dr. Weber Diagnosis: C44.310 - Basal cell carcinoma of skin of unspecified parts of face, Diagnosed 01/13/2024 (Active) D45 - Polycythemia vera, Diagnosed 04/11/2015 (Active) Radiotherapy to date: Course: L latter day, Treatment Site: [facility] [place] 6E, Ref. ID: [id number], Energy: 6E, Dose/Fx (cGy): 300, #Fx: / , Dose Correction (cGy): 0, Total Dose Delivered (cGy): 1,500, Start Date: 01/20/2024, Elapsed Days: 6 Course: L latter day, Treatment Site: [facility] [place] 6E, Ref. ID: [id number], Energy: 6E, Dose/Fx (cGy): 400, #Fx: 2 / 10, Dose Correction (cGy): 0, Total Dose Delivered (cGy): 800, Start Date: 01/25/2024, Elapsed Days: 1 Reason for visit: The patient is being seen today as part of their regularly scheduled weekly on treatment visits to assess for acute toxicities from radiotherapy. Review of Systems: No complaints today Vital Signs: Performed on 01/26/2024 9:43 AM BMI - 25.749 kg/m2 (high), Height - 67 in, Weight - 164.4 lbs, Temperature - 97.4 f, Pulse - 55 /min (low), Respiration - 17 /min, O2 Sat - 96 %, Pain - 0, Fatigue - 0 and BP - 161/ 90 mm(hg)(high/). Physical Exam: No changes on exam Imaging: Radiation therapy imaging related to accurate target localization (i.e. KV, MV and CBCT) was reviewed. Appropriate changes, if any, were made to ensure treatment accuracy. Plan: I reviewed with him and his the different creams and ointments he can use. They have Aquaphor and Silvadene at home. Will otherwise continue with his treatments as planned. Signed by: Dr. Fani Elmore 01/26/2024 10:03:26 AM
== END 2024-01-30 23:59 | disposition home or self-care (01) ==
PROVIDERS: Nurse Practitioner Family; PCP Family Medicine; Visit Provider Internal Medicine Hematology & Oncology
DX: Z51.0 Encounter for antineoplastic radiation therapy (principal); C44.319 Basal cell carcinoma of skin of other parts of face
CPT/HCPCS: 36415; 77280; 77290; 77295; 77300; 77321; 77332; 77334; 77336; 77412; 85025; 99024; 99205

== ENCOUNTER 2024-02-10 08:40 | Oncology outpatient (recurring) (ONCR) | payer MEDICARE, OTHER, SELFPAY ==
--- NOTE | 2024-02-02 10:31 | ONCRAD TMN_ITS ---
Radiation Oncology Weekly Treatment Management Patient: Eulalio Lopez> MR#: [id number] : 1955> Attending Physician: Dr. Fani Elmore Date of Service: 02/02/2024 Fractions: 8 out of 13 on the christianity and 5 out of 10 on the cheek Referring Physician(s) : Dr. Mesfin Spence Diagnosis: C44.310 - Basal cell carcinoma of skin of unspecified parts of face, Diagnosed 01/13/2024 (Active) D45 - Polycythemia vera, Diagnosed 04/11/2015 (Active) Radiotherapy to date: Course: L christianity, Treatment Site: [facility] [place] 6E, Ref. ID: [id number], Energy: 6E, Dose/Fx (cGy): 300, #Fx: , Dose Correction (cGy): 0, Total Dose Delivered (cGy): 2,400, Start Date: 01/20/2024, Elapsed Days: 13 Ref. ID: [id number], Energy: 6E, Dose/Fx (cGy): 400, #Fx: , Dose Correction (cGy): 0, Total Dose Delivered (cGy): 2,000, Start Date: 01/25/2024, Elapsed Days: 8 Reason for visit: The patient is being seen today as part of their regularly scheduled weekly on treatment visits to assess for acute toxicities from radiotherapy. Review of Systems: His skin has become slightly more tender and very erythematous over the weekend Vital Signs: Performed on 02/02/2024 10:00 AM BMI - 25.843 kg/m2 (high), Height - 67 in, Weight - 165 lbs, Temperature - 97.1 f, Pulse - 54 /min (low), Respiration - 18 /min, O2 Sat - 80 % (low), Pain - 0, Fatigue - 0 and BP - 166/ 86 mm(hg)(high/). Physical Exam: On exam his skin is erythematous but there is no dryness or moist desquamation. Imaging: Radiation therapy imaging related to accurate target localization (i.e. KV, MV and CBCT) was reviewed. Appropriate changes, if any, were made to ensure treatment accuracy. Plan: I ask him to switch from the Silvadene to the cortisone cream twice a day. He has been putting his cream on once a day. I reassured him that the erythema he is experiencing is what we would expect to see and that the lesion on the christianity was a larger area that was treated than what the cancer had occupied because of the spread down the nerve roots. Signed by: Dr. Fani Elmore 02/02/2024 10:29:43 AM
--- NOTE | 2024-02-09 10:58 | ONCRAD TMN_ITS ---
Radiation Oncology Weekly Treatment Management Patient: John Tsai MR#: [id number] : 1955 Attending Physician: Dr. Fani Elmore Date of Service: 02/09/2024 Fractions: 12 out of 13 and 9 out of 10 Referring Physician(s) : Dr. Mesfin Spence Diagnosis: C44.310 - Basal cell carcinoma of skin of unspecified parts of face, Diagnosed 01/13/2024 (Active) D45 - Polycythemia vera, Diagnosed 04/11/2015 (Active) Radiotherapy to date: Course: L rastafari, Treatment Site: [facility] [place] 6E, Ref. ID: [id number], Energy: 6E, Dose/Fx (cGy): 300, #Fx: , Dose Correction (cGy): 0, Total Dose Delivered (cGy): 3,600, Start Date: 01/20/2024, Elapsed Days: 20 Course: L rastafari, Treatment Site: [facility] [place] 6E, Ref. ID: [id number], Energy: 6E, Dose/Fx (cGy): 400, #Fx: , Dose Correction (cGy): 0, Total Dose Delivered (cGy): 3,600, Start Date: 01/25/2024, Elapsed Days: 15 Reason for visit: The patient is being seen today as part of their regularly scheduled weekly on treatment visits to assess for acute toxicities from radiotherapy. Review of Systems: Patient has continued to use the cream Vital Signs: Performed on 02/09/2024 9:41 AM BMI - 25.655 kg/m2 (high), Height - 67 in, Weight - 163.8 lbs, Temperature - 96.9 f, Pulse - 62 /min, Respiration - 16 /min, O2 Sat - 96 %, Pain - 0, Fatigue - 0 and BP - 156/ 83 mm(hg)(high/). Physical Exam: On exam his skin is quite erythematous. But there is no areas of dry or moist desquamation. Imaging: Radiation therapy imaging related to accurate target localization (i.e. KV, MV and CBCT) was reviewed. Appropriate changes, if any, were made to ensure treatment accuracy. Plan: He has 1 treatment remaining. After that we will have him return in a month and then refer him back to dermatology for regular follow-up Signed by: Dr. Fani Elmore 02/09/2024 10:57:58 AM
--- NOTE | 2024-02-11 08:28 | N.ONRD TS_ITS ---
Radiation Oncology Treatment Summary Patient: John Tsai MR#: [id number] : 1955 Age: 68 Sex: Male Dictated by: Dr. Fani Elmore Date of Service: 02/10/2024 Referring Physician(s) : Dr. Mesfin Spence Diagnosis: C44.310 - Basal cell carcinoma of skin of unspecified parts of face, Diagnosed 01/13/2024 (Active) D45 - Polycythemia vera, Diagnosed 04/11/2015 (Active) Radiotherapy to Date: Course: L jewish, Treatment Site: [facility] [place] 6E, Ref. ID: [id number], Energy: 6E, Dose/Fx (cGy): 300, #Fx: , Dose Correction (cGy): 0, Total Dose Delivered (cGy): 3,900, Start Date: 01/20/2024, End Date: 02/10/2024, Elapsed Days: 21 Course: L jewish, Treatment Site: [facility] [place] [facility]E, Ref. ID: [id number], Energy: 6E, Dose/Fx (cGy): 400, #Fx: , Dose Correction (cGy): 0, Total Dose Delivered (cGy): 4,000, Start Date: 01/25/2024, End Date: 02/10/2024, Elapsed Days: 16 Clinical Summary: The patient tolerated RT well. He did develop a brisk erythema but did not develop dry or moist desquamation Plan: End of treatment today. Continue on the above medication until the skin reaction resolves. Follow up in one month. Signed by: Dr. Fani Elmore>02/11/2024 8:27:27 AM <<Signature on File>>
== END 2024-03-01 23:59 | disposition home or self-care (01) ==
PROVIDERS: PCP Family Medicine; Visit Provider Radiology Radiation Oncology
DX: D45 Polycythemia vera (principal); Z53.9 Procedure and treatment not carried out, unspecified reason; Z51.0 Encounter for antineoplastic radiation therapy; C44.319 Basal cell carcinoma of skin of other parts of face
CPT/HCPCS: 77336; 77412; 99024

== ENCOUNTER 2024-03-10 09:07 | Outpatient (CLI) | payer MEDICARE, OTHER, SELFPAY ==
--- NOTE | 2024-03-10 09:13 | XR_ITS ---
WS: [id number] Right great toe, 2 views, 03/10/2024 Clinical Data: r/o fracture or osteo in distal right great toe Comparison: None. Findings: No fractures or dislocations are seen. The joint spaces of the first MTP and IP joints are normal. Th e soft tissues are not remarkable. XR/XR toe RT min 2V 12040 Impression: Negative right great toe.
== END 2024-03-10 09:08 | disposition home or self-care (01) ==
LOC: RAD 09:11
PROVIDERS: PCP Family Medicine; Visit Provider Family Medicine
DX: L03.039 Cellulitis of unspecified toe (principal)
CPT/HCPCS: 73660; 84550; 85025; 86140

== ENCOUNTER → 2024-03-23 07:01 | Outpatient (BNVA) | payer MEDICARE, OTHER, SELFPAY | PROVIDERS: PCP Family Medicine; Visit Provider Podiatrist Foot & Ankle Surgery | DX: R09.89 Other specified symptoms and signs involving the circulatory and respiratory systems (principal); D45 Polycythemia vera | CPT/HCPCS: 99203 ==

== ENCOUNTER 2024-04-01 09:45 | Oncology outpatient (recurring) (ONCR) | payer MEDICARE, OTHER, SELFPAY ==
[2024-03-17 08:28] LABS: Basophils # 0.1 10^3/uL (0.0-0.1); Basophils % 0.8 %; Eosinophils # 0.2 10^3/uL (0.0-0.8); Hematocrit 40.3 % (37-53); Lymphocytes # 1.6 10^3/uL (0.8-4.8); Mean Corpuscular HGB Conc 34.2 g/dL (30-55); Mean Corpuscular Hemoglobin 44.5 pg (27-33); Mean Platelet Volume 9.7 fL (7.4-10.4); Monocytes # 0.5 10^3/uL (0.2-0.9); Neutrophils # 13.18 10^3/uL (1.8-7.7); Neutrophils % 83.6 %; Nucleated Red Blood Cells % 0 %; Platelet Count 390 10^3/cmm (157-399); Red Cell Distribution Width 14.2 % (12.1-15.1); White Blood Count 15.77 10^3/uL (3.29-11.43)
[2024-03-17 08:47] LABS: Alanine Aminotransferase 8 U/L (0-41); Albumin Level 3.9 g/dL (3.5-5.2); Alkaline Phosphatase 92 U/L (40-130); Anion Gap 13.4 (5-19); Aspartate Amino Transferase 18 U/L (0-40); Blood Urea Nitrogen 23 mg/dL (8-23); Calcium 8.7 mg/dL (8.5-10.5); Carbon Dioxide 24 mmol/L (22-29); Chloride 103 mmol/L (98-107); Globulin 2.7 g/dL (1.3-4.6); Glomerular Filtration Rate 66.2 mL/min (90-130); Glucose 110 mg/dL (65-115); Osmolality Calculated 286 mOsm/kg (285-295); Potassium 4.4 mmol/L (3.5-5.1); Sodium 136 mmol/L (136-145); Total Bilirubin 0.4 mg/dL (0.15-1.2); Total Protein 6.6 g/dL (6.6-8.7)
--- NOTE | 2024-03-17 09:06 | ONCRAD EPV_ITS ---
Radiation Oncology Established Patient Visit Patient: John Tsai [id number] : 1955 Age: 68 Sex: Male Dictated by: Dr. Fani Elmore Date of Service: 03/17/2024 Referring Physician(s) : Dr. Mesfin Spence Diagnosis: C44.310 - Basal cell carcinoma of skin of unspecified parts of face, Diagnosed 01/13/2024 (Active) D45 - Polycythemia vera, Diagnosed 04/11/2015 (Active) Radiotherapy to Date: Course: L caodaism, Treatment Site: [facility] [place] 6E, Ref. ID: [id number], : 6E, /Fx (cGy): 300, #Fx: , Dose Correction (cGy): 0, Total Dose Delivered (cGy): 3,900, Start Date: 01/20/2024, End Date: 02/10/2024, Elapsed Days: 21 Course: L caodaism, Treatment Site: [facility] 6E, Ref. ID: [id number], Energy: 6E, /Fx (cGy): 400, #Fx: , Dose Correction (cGy): 0, Total Dose Delivered (cGy): 4,000, Start Date: 01/25/2024, End Date: 02/10/2024, Elapsed Days: 16 Current History: Patient returns today for his 1 month check. Subjectively he is doing well. His skin is completely healed. His only complaint today is that he has been treated for a sore area on the tip of his big toe on the right foot. He apparently kicked something and had a small cut there which then sounds like it became infected. His is concerned that this may be an additional skin cancer. Current Medications: Childrens Aspirin, hydroxyurea, hydroxyurea, pletal. Allergies: Iodine. Current Complaints / Review of Systems: . Vital Signs: Performed on 03/17/2024 8:13 AM BMI - 24.997 kg/m2 (high), Height - 68 in, Weight - 164.4 lbs, Temperature - 97.6 f, Pulse - 65 /min, Respiration - 17 /min, O2 Sat - 96 %, Pain - 0, Fatigue - 0 and BP - 156/ 85 mm(hg)(high/). Physical Exam: General: Alert and oriented x 3. No acute distress. Skin: The skin in the radiated field is completely healed. There is no erythema or dry areas. The skin at the tip of the toe appears to have a scab on it. It is very erythematous and purple. He feels is related to his polycythemia. He is seeing his primary care doctor later today Performance Status: 100 Lab: None pending. Pathology: Primary, c44.310 - basal cell carcinoma of skin of unspecified parts of face, Diagnosed 01/13/2024 (active) and Primary, d45 - polycythemia vera, Diagnosed 04/11/2015 (active) . Imaging: See HPI Impression: Skin cancer of the caodaism and cheek Plan at this point patient has recovered nicely from his treatments. His skin looks good. He will be seeing his primary care physician about his toe. He is currently on antibiotics for this. He has an appointment to follow-up with dermatology in April. I have asked him to call and we be happy to see him back at any time. Signed by: 03/17/2024 9:04:49 AM <<Signature on File>> Time spent with patient: 20 CPT Code: CPT Code:
--- NOTE | 2024-04-01 09:45 | USR_ITS ---
PROCEDURE INFORMATION: Exam: US Non-Invasive Physiologic Bilateral Lower Extremities Arteries, Complete Exam date and time: 04/01/2024 10:29 AM Age: 68 years old Clinical indication: Other: Decreased pedal pulses TECHNIQUE: Imaging protocol: Complete bilateral noninvasive physiologic studies of lower extremity arteries, 3 or more levels or single level study with provocative functional maneuvers. Waveforms were obtained and evaluated. Images were documented and archived. Exam is complete. COMPARISON: US soft tissue/extremity [id number] 07/12/2018 12:20 PM FINDINGS: Right femoral arteries: Normal waveform morphology and amplitude. Right infrapopliteal arteries: Normal waveform morphology and amplitude. Left femoral arteries: Normal waveform morphology and amplitude. Left infrapopliteal arteries: Normal waveform morphology and amplitude. Right Ankle-Brachial Index: 1.28 Left Ankle-Brachial Index: 1.18 Other findings: Dampened monophasic waveform left ankle but with normal pressures in the dorsalis pedis artery. There is diminished flow to the digits of the left foot. Ankle-brachial index of the right 1.28. Ankle-brachial index on the left 1.18. US/CV segpressure [facility] [id number] IMPRESSION: Diminished flow to the digits of the left foot. Otherwise no significant arterial stenosis with normal ankle-brachial indices..
== END 2024-04-01 23:59 | disposition home or self-care (01) ==
LOC: RAD 04-02 → ONCMED 04-04 09:20
PROVIDERS: Nurse Practitioner Family; PCP Family Medicine; Visit Provider Podiatrist Foot & Ankle Surgery
DX: R09.89 Other specified symptoms and signs involving the circulatory and respiratory systems (principal)
CPT/HCPCS: 36415; 80053; 85025; 93923; 99024; 99214

== ENCOUNTER → 2024-04-13 07:37 | Outpatient (BNVA) | payer MEDICARE, OTHER, SELFPAY | PROVIDERS: PCP Family Medicine; Visit Provider Podiatrist Foot & Ankle Surgery | DX: D45 Polycythemia vera (principal) | CPT/HCPCS: 99213 ==

== ENCOUNTER 2024-04-25 08:30 | Oncology outpatient (recurring) (ONCR) | payer MEDICARE, OTHER, SELFPAY ==
[2024-04-25 10:21] LABS: Lactate Dehydrogenase 291 U/L (135-225)
[2024-04-25 14:26] LABS: Basophils # 0.1 10^3/uL (0.0-0.1); Basophils % 0.5 %; Eosinophils # 0.1 10^3/uL (0.0-0.8); Eosinophils % 0.7 %; Hematocrit 38.8 % (37-53); Lymphocytes # 1.4 10^3/uL (0.8-4.8); Lymphocytes % 10.8 %; Mean Corpuscular HGB Conc 33.5 g/dL (30-55); Mean Corpuscular Hemoglobin 47.1 pg (27-33); Mean Corpuscular Volume 140.6 fl (82-101); Mean Platelet Volume 10.4 fL (7.4-10.4); Monocytes # 0.4 10^3/uL (0.2-0.9); Monocytes % 3.3 %; Neutrophils # 11.06 10^3/uL (1.8-7.7); Neutrophils % 83.4 %; Nucleated Red Blood Cells % 0 %; Platelet Count 400 10^3/cmm (157-399); Red Blood Count 2.76 10^6/uL (3.85-5.65); Red Cell Distribution Width 16.5 % (12.1-15.1); White Blood Count 13.26 10^3/uL (3.29-11.43)
[2024-04-27 23:10] LABS: P190 BCR ALB1 NOT DETECTED; P190 BCR ALB1 Yes Test Yes; P210 BCR ALB1 NOT DETECTED; P210 BCR ALB1 Yes Test Yes; Prior Results NG; Source whole blood
[2024-04-28 12:44] LABS: Erythropoietin 35.4 mIU/mL (2.6-18.5)
[2024-05-02 11:38] LABS: JAK2 V617 Mutation DETECTED (NOT DETECTED); JAK2 V617 Specimen Source whole blood
== END 2024-04-29 23:59 | disposition home or self-care (01) ==
PROVIDERS: Nurse Practitioner Family; PCP Family Medicine; Visit Provider Podiatrist Foot & Ankle Surgery
DX: D45 Polycythemia vera (principal); D72.829 Elevated white blood cell count, unspecified
CPT/HCPCS: 36415; 81206; 81207; 81270; 82668; 83615; 85025

== ENCOUNTER → 2024-05-04 07:49 | Outpatient (BNVA) | payer MEDICARE, OTHER, SELFPAY | PROVIDERS: PCP Family Medicine; Visit Provider Dermatology | DX: D18.01 Hemangioma of skin and subcutaneous tissue (principal); L82.1 Other seborrheic keratosis; L30.8 Other specified dermatitis; Z08 Encounter for follow-up examination after completed treatment for malignant neoplasm; Z85.828 Personal history of other malignant neoplasm of skin; D48.5 Neoplasm of uncertain behavior of skin; L57.0 Actinic keratosis | CPT/HCPCS: 11102; 17000; 99214 ==

== ENCOUNTER → 2024-05-25 07:38 | Outpatient (BNVA) | payer MEDICARE, OTHER, SELFPAY | PROVIDERS: PCP Family Medicine; Visit Provider Podiatrist Foot & Ankle Surgery | DX: D45 Polycythemia vera (principal) | CPT/HCPCS: 99213 ==

== ENCOUNTER 2024-06-20 07:56 | Oncology outpatient (recurring) (ONCR) | payer MEDICARE, OTHER, SELFPAY ==
[2024-06-20 08:16] LABS: Basophils # 0.1 10^3/uL (0.0-0.1); Basophils % 0.7 %; Eosinophils # 0.1 10^3/uL (0.0-0.8); Eosinophils % 1.1 %; Hematocrit 40.2 % (37-53); Lymphocytes # 1.9 10^3/uL (0.8-4.8); Mean Corpuscular HGB Conc 35.3 g/dL (30-55); Mean Corpuscular Hemoglobin 48.5 pg (27-33); Mean Corpuscular Volume 137.2 fl (82-101); Mean Platelet Volume 9.8 fL (7.4-10.4); Monocytes # 0.6 10^3/uL (0.2-0.9); Monocytes % 4.5 %; Neutrophils # 10.34 10^3/uL (1.8-7.7); Neutrophils % 78.2 %; Nucleated Red Blood Cells % 0 %; Platelet Count 381 10^3/cmm (157-399); Red Blood Count 2.93 10^6/uL (3.85-5.65); Red Cell Distribution Width 11.8 % (12.1-15.1); White Blood Count 13.21 10^3/uL (3.29-11.43)
[2024-06-20 08:46] LABS: Alanine Aminotransferase 8 U/L (0-41); Albumin Level 4.1 g/dL (3.5-5.2); Alkaline Phosphatase 83 U/L (40-130); Anion Gap 13.5 (5-19); Aspartate Amino Transferase 16 U/L (0-40); Blood Urea Nitrogen 19 mg/dL (8-23); Calcium 8.8 mg/dL (8.5-10.5); Carbon Dioxide 26 mmol/L (22-29); Chloride 101 mmol/L (98-107); Creatinine Clr Calc Pharmacy 68.3675; Globulin 2.8 g/dL (1.3-4.6); Glucose 104 mg/dL (65-115); Osmolality Calculated 285 mOsm/kg (285-295); Potassium 4.5 mmol/L (3.5-5.1); Sodium 136 mmol/L (136-145); Total Bilirubin 0.4 mg/dL (0.15-1.2); Total Protein 6.9 g/dL (6.6-8.7)
== END 2024-06-29 23:59 | disposition home or self-care (01) ==
PROVIDERS: Nurse Practitioner Family; PCP Family Medicine; Visit Provider Podiatrist Foot & Ankle Surgery
DX: D45 Polycythemia vera (principal); D72.829 Elevated white blood cell count, unspecified; R03.0 Elevated blood-pressure reading, without diagnosis of hypertension; Z79.899 Other long term (current) drug therapy
CPT/HCPCS: 36415; 80053; 85025; 99214

== ENCOUNTER → 2024-07-06 07:39 | Outpatient (BNVA) | payer MEDICARE, OTHER, SELFPAY | PROVIDERS: PCP Family Medicine; Visit Provider Podiatrist Foot & Ankle Surgery | DX: D45 Polycythemia vera (principal); B35.1 Tinea unguium | CPT/HCPCS: 99213 ==

== ENCOUNTER 2024-08-01 08:44 | Oncology outpatient (recurring) (ONCR) | payer MEDICARE, OTHER, SELFPAY ==
[2024-08-01 09:12] LABS: Basophils # 0.1 10^3/uL (0.0-0.1); Basophils % 0.6 %; Eosinophils # 0.1 10^3/uL (0.0-0.8); Eosinophils % 0.6 %; Hematocrit 41.6 % (37-53); Lymphocytes # 1.8 10^3/uL (0.8-4.8); Lymphocytes % 11.8 %; Mean Corpuscular HGB Conc 35.3 g/dL (30-55); Mean Corpuscular Volume 132.9 fl (82-101); Monocytes # 0.6 10^3/uL (0.2-0.9); Monocytes % 3.6 %; Neutrophils # 12.75 10^3/uL (1.8-7.7); Neutrophils % 81.5 %; Nucleated Red Blood Cells % 0 %; Platelet Count 465 10^3/cmm (157-399); Red Blood Count 3.13 10^6/uL (3.85-5.65); White Blood Count 15.64 10^3/uL (3.29-11.43)
[2024-08-01 09:30] LABS: Alanine Aminotransferase 8 U/L (0-41); Alkaline Phosphatase 80 U/L (40-130); Anion Gap 13.5 (5-19); Aspartate Amino Transferase 15 U/L (0-40); Blood Urea Nitrogen 24 mg/dL (8-23); Calcium 9.2 mg/dL (8.5-10.5); Carbon Dioxide 24 mmol/L (22-29); Chloride 102 mmol/L (98-107); Globulin 2.7 g/dL (1.3-4.6); Glucose 106 mg/dL (65-115); Osmolality Calculated 284 mOsm/kg (285-295); Potassium 4.5 mmol/L (3.5-5.1); Sodium 135 mmol/L (136-145); Total Bilirubin 0.3 mg/dL (0.15-1.2); Total Protein 6.7 g/dL (6.6-8.7)
--- NOTE | 2024-08-01 11:44 | PC.NURSE ---
Patient's called requesting lab results. The verified the name and . THis nurse gave her the WBC, Hgb, and the Hct. Patient's had no other questions or concerns.
== END 2024-08-29 23:59 | disposition home or self-care (01) ==
PROVIDERS: Internal Medicine Medical Oncology; PCP Family Medicine; Visit Provider Podiatrist Foot & Ankle Surgery
DX: D45 Polycythemia vera (principal)
CPT/HCPCS: 36415; 80053; 85025

== ENCOUNTER → 2024-08-03 07:43 | Outpatient (BNVA) | payer MEDICARE, OTHER, SELFPAY | PROVIDERS: PCP Family Medicine; Visit Provider Podiatrist Foot & Ankle Surgery | DX: D45 Polycythemia vera (principal) | CPT/HCPCS: 99213 ==

== ENCOUNTER → 2024-08-09 14:25 | Outpatient (BNVA) | payer MEDICARE, OTHER, SELFPAY | PROVIDERS: PCP Family Medicine; Visit Provider Dermatology | DX: L95.0 Livedoid vasculitis (principal); S81.802A Unspecified open wound, left lower leg, initial encounter; X58.XXXA Exposure to other specified factors, initial encounter; D18.01 Hemangioma of skin and subcutaneous tissue; L82.1 Other seborrheic keratosis; Z86.007 Personal history of in-situ neoplasm of skin; Z08 Encounter for follow-up examination after completed treatment for malignant neoplasm; Z85.828 Personal history of other malignant neoplasm of skin; Z92.3 Personal history of irradiation; L57.0 Actinic keratosis | CPT/HCPCS: 17000; 99214 ==

== ENCOUNTER → 2024-08-31 08:52 | Outpatient (BNVA) | payer MEDICARE, OTHER, SELFPAY | PROVIDERS: PCP Family Medicine; Visit Provider Podiatrist Foot & Ankle Surgery | DX: S81.802A Unspecified open wound, left lower leg, initial encounter (principal); X58.XXXA Exposure to other specified factors, initial encounter | CPT/HCPCS: 87070; 87075; 87205 ==

== ENCOUNTER 2024-09-15 08:20 | Outpatient (CLI) | payer MEDICARE, OTHER, SELFPAY ==
--- NOTE | 2024-09-15 08:25 | XR_ITS ---
WS: [id number] XR hip RT 2-3V wo/w pel* [id number] REASON FOR EXAM: hip pain FINDINGS: No fracture or focal bone lesion. Minimal narrowing of the joint space with mild subchondral sclerosis and osteophytosis of the acetabulum. Minimal osteophytosis of the femoral head. 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
== END 2024-09-15 08:21 | disposition home or self-care (01) ==
PROVIDERS: PCP Family Medicine; Visit Provider Family Medicine
DX: M25.751 Osteophyte, right hip (principal); M24.151 Other articular cartilage disorders, right hip
CPT/HCPCS: 73502

== ENCOUNTER 2024-09-19 08:19 | Oncology outpatient (recurring) (ONCR) | payer MEDICARE, OTHER, SELFPAY ==
[2024-09-19 09:01] LABS: Hematocrit 42.7 % (37-53); Hemoglobin 14.70 g/dL (11.27-16.99); Mean Corpuscular HGB Conc 34.4 g/dL (30-55); Mean Corpuscular Hemoglobin 46.2 pg (27-33); Mean Corpuscular Volume 134.3 fl (82-101); Nucleated Red Blood Cells % 0 %; Platelet Count 512 10^3/cmm (157-399); Red Blood Count 3.18 10^6/uL (3.85-5.65); White Blood Count 19.92 10^3/uL (3.29-11.43)
[2024-09-19 09:17] LABS: Alanine Aminotransferase < 5 U/L (0-41); Albumin Level 3.9 g/dL (3.5-5.2); Alkaline Phosphatase 90 U/L (40-130); Anion Gap 14.7 (5-19); Aspartate Amino Transferase 15 U/L (0-40); Blood Urea Nitrogen 21 mg/dL (8-23); Calcium 8.9 mg/dL (8.5-10.5); Carbon Dioxide 25 mmol/L (22-29); Chloride 100 mmol/L (98-107); Cholesterol 143 mg/dL (0-200); Creatinine Clr Calc Pharmacy 68.1935; Globulin 3.1 g/dL (1.3-4.6); Glucose 104 mg/dL (65-115); HDL Cholesterol 35 mg/dL (60-100); Osmolality Calculated 283 mOsm/kg (285-295); Potassium 4.7 mmol/L (3.5-5.1); Sodium 135 mmol/L (136-145); Total Protein 7.0 g/dL (6.6-8.7); Triglycerides 87 mg/dL (0-150)
== END 2024-09-29 23:59 | disposition home or self-care (01) ==
PROVIDERS: Internal Medicine Medical Oncology; PCP Family Medicine; Visit Provider Podiatrist Foot & Ankle Surgery
DX: D45 Polycythemia vera (principal); I10 Essential (primary) hypertension; R03.0 Elevated blood-pressure reading, without diagnosis of hypertension; D72.829 Elevated white blood cell count, unspecified
CPT/HCPCS: 36415; 80053; 80061; 85025; 99214

== ENCOUNTER → 2024-10-05 07:25 | Outpatient (BNVA) | payer MEDICARE, OTHER, SELFPAY | PROVIDERS: PCP Family Medicine; Visit Provider Podiatrist Foot & Ankle Surgery | DX: D45 Polycythemia vera (principal); R23.4 Changes in skin texture; B35.1 Tinea unguium; L97.322 Non-pressure chronic ulcer of left ankle with fat layer exposed | CPT/HCPCS: 99214 ==

== ENCOUNTER 2024-10-27 13:15 | Oncology outpatient (recurring) (ONCR) | payer MEDICARE, OTHER, SELFPAY ==
[2024-10-03 08:03] LABS: Hematocrit 45.1 % (37-53); Hemoglobin 15.30 g/dL (11.27-16.99); Mean Corpuscular HGB Conc 33.9 g/dL (30-55); Mean Corpuscular Hemoglobin 41.9 pg (27-33); Mean Corpuscular Volume 123.6 fl (82-101); Platelet Count 815 10^3/cmm (157-399); Red Blood Count 3.65 10^6/uL (3.85-5.65)
[2024-10-03 08:21] LABS: Alanine Aminotransferase 7 U/L (0-41); Albumin Level 4.1 g/dL (3.5-5.2); Alkaline Phosphatase 147 U/L (40-130); Anion Gap 15.1 (5-19); Aspartate Amino Transferase 24 U/L (0-40); Blood Urea Nitrogen 18 mg/dL (8-23); Calcium 9.8 mg/dL (8.5-10.5); Carbon Dioxide 26 mmol/L (22-29); Chloride 101 mmol/L (98-107); Globulin 3.4 g/dL (1.3-4.6); Glucose 125 mg/dL (65-115); Osmolality Calculated 287 mOsm/kg (285-295); Potassium 5.1 mmol/L (3.5-5.1); Sodium 137 mmol/L (136-145); Total Protein 7.5 g/dL (6.6-8.7)
[2024-10-03 09:06] LABS: Slide Review Slide Review Perform; White Blood Count 35.73 10^3/uL (3.29-11.43)
[2024-10-03 09:10] LABS: Absolute Segmented Neutrophil 28.6 10/cmm (1.6-7.1); Atypical Lymphs 3.0 % (0-5); Band Neutrophils Absolute 1.8 10^3/cmm (0.0-1.2); Macrocytosis 2+; Ovalocytes 1+; Total Cells Counted 100 (0-100)
[2024-10-17 10:42] LABS: Hematocrit 48.3 % (37-53); Hemoglobin 16.00 g/dL (11.27-16.99); Mean Corpuscular HGB Conc 33.1 g/dL (30-55); Mean Corpuscular Hemoglobin 38.6 pg (27-33); Mean Corpuscular Volume 116.7 fl (82-101); Nucleated Red Blood Cells % 0 %; Platelet Count 1311 10^3/cmm (157-399); Red Blood Count 4.14 10^6/uL (3.85-5.65)
[2024-10-17 10:46] LABS: White Blood Count 55.82 10^3/uL (3.29-11.43)
[2024-10-17 10:47] LABS: Alanine Aminotransferase 10 U/L (0-41); Albumin Level 4.3 g/dL (3.5-5.2); Alkaline Phosphatase 150 U/L (40-130); Anion Gap 11.6 (5-19); Aspartate Amino Transferase 16 U/L (0-40); Blood Urea Nitrogen 21 mg/dL (8-23); Calcium 9.4 mg/dL (8.5-10.5); Carbon Dioxide 27 mmol/L (22-29); Chloride 99 mmol/L (98-107); Globulin 3.1 g/dL (1.3-4.6); Glucose 113 mg/dL (65-115); Osmolality Calculated 280 mOsm/kg (285-295); Potassium 4.6 mmol/L (3.5-5.1); Sodium 133 mmol/L (136-145); Total Protein 7.4 g/dL (6.6-8.7)
[2024-10-27 13:24] LABS: Hematocrit 49.1 % (37-53); Hemoglobin 16.00 g/dL (11.27-16.99); Mean Corpuscular HGB Conc 32.6 g/dL (30-55); Mean Corpuscular Hemoglobin 35.6 pg (27-33); Mean Corpuscular Volume 109.4 fl (82-101); Platelet Count 1112 10^3/cmm (157-399); Red Blood Count 4.49 10^6/uL (3.85-5.65)
[2024-10-27 13:48] LABS: Alanine Aminotransferase 11 U/L (0-41); Albumin Level 4.2 g/dL (3.5-5.2); Alkaline Phosphatase 146 U/L (40-130); Anion Gap 16.8 (5-19); Aspartate Amino Transferase 17 U/L (0-40); Blood Urea Nitrogen 23 mg/dL (8-23); Calcium 9.4 mg/dL (8.5-10.5); Carbon Dioxide 25 mmol/L (22-29); Chloride 100 mmol/L (98-107); Creatinine Clr Calc Pharmacy 56.1034; Globulin 3.6 g/dL (1.3-4.6); Glucose 102 mg/dL (65-115); Osmolality Calculated 288 mOsm/kg (285-295); Potassium 4.8 mmol/L (3.5-5.1); Sodium 137 mmol/L (136-145); Total Protein 7.8 g/dL (6.6-8.7)
[2024-10-27 14:06] LABS: Hepatitis B Surface Antigen Non-Reactive (Nonreactive)
[2024-10-27 14:17] LABS: White Blood Count 47.47 10^3/uL (3.29-11.43)
[2024-10-27 14:18] LABS: Slide Review Slide Review Perform
[2024-10-27 14:22] LABS: Absolute Segmented Neutrophil 39.4 10/cmm (1.6-7.1); Atypical Lymphs 3.0 % (0-5); Band Neutrophils Absolute 0.9 10^3/cmm (0.0-1.2); Total Cells Counted 100 (0-100)
== END 2024-10-30 23:59 | disposition home or self-care (01) ==
PROVIDERS: Internal Medicine Medical Oncology; PCP Family Medicine; Visit Provider Nurse Practitioner Family
DX: D45 Polycythemia vera; Z79.899 Other long term (current) drug therapy; R03.0 Elevated blood-pressure reading, without diagnosis of hypertension; S90.922D Unspecified superficial injury of left foot, subsequent encounter; S90.921D Unspecified superficial injury of right foot, subsequent encounter; X58.XXXD Exposure to other specified factors, subsequent encounter; Z71.89 Other specified counseling; Z53.9 Procedure and treatment not carried out, unspecified reason
CPT/HCPCS: 36415; 80053; 85007; 85025; 86705; 86706; 87340; 99214; 99215

== ENCOUNTER → 2024-11-02 07:53 | Outpatient (BNVA) | payer MEDICARE, OTHER, SELFPAY | PROVIDERS: PCP Family Medicine; Visit Provider Podiatrist Foot & Ankle Surgery | DX: D45 Polycythemia vera (principal); R23.4 Changes in skin texture; B35.1 Tinea unguium; L97.322 Non-pressure chronic ulcer of left ankle with fat layer exposed | CPT/HCPCS: 99213 ==

== ENCOUNTER 2024-11-17 09:44 | Oncology outpatient (recurring) (ONCR) | payer MEDICARE, OTHER, SELFPAY ==
[2024-11-17 10:07] LABS: Hematocrit 48.4 % (37-53); Hemoglobin 15.50 g/dL (11.27-16.99); Mean Corpuscular HGB Conc 32.0 g/dL (30-55); Mean Corpuscular Hemoglobin 32.3 pg (27-33); Mean Corpuscular Volume 100.8 fl (82-101); Nucleated Red Blood Cells % 0 %; Platelet Count 1184 10^3/cmm (157-399); Red Blood Count 4.80 10^6/uL (3.85-5.65); White Blood Count 27.81 10^3/uL (3.29-11.43)
[2024-11-17 10:27] LABS: Alanine Aminotransferase 12 U/L (0-41); Albumin Level 4.2 g/dL (3.5-5.2); Alkaline Phosphatase 98 U/L (40-130); Anion Gap 16.1 (5-19); Aspartate Amino Transferase 23 U/L (0-40); Blood Urea Nitrogen 26 mg/dL (8-23); Calcium 9.1 mg/dL (8.5-10.5); Carbon Dioxide 23 mmol/L (22-29); Chloride 102 mmol/L (98-107); Creatinine Clr Calc Pharmacy 56.9729; Globulin 2.7 g/dL (1.3-4.6); Glucose 104 mg/dL (65-115); Osmolality Calculated 287 mOsm/kg (285-295); Potassium 5.1 mmol/L (3.5-5.1); Sodium 136 mmol/L (136-145); Total Protein 6.9 g/dL (6.6-8.7)
== END 2024-11-29 23:59 | disposition home or self-care (01) ==
PROVIDERS: PCP Family Medicine; Visit Provider Nurse Practitioner Family
DX: D45 Polycythemia vera (principal); R03.0 Elevated blood-pressure reading, without diagnosis of hypertension; S90.922D Unspecified superficial injury of left foot, subsequent encounter; S90.921D Unspecified superficial injury of right foot, subsequent encounter; X58.XXXD Exposure to other specified factors, subsequent encounter; K59.00 Constipation, unspecified; Z79.899 Other long term (current) drug therapy
CPT/HCPCS: 36415; 80053; 85025; 99214

== ENCOUNTER → 2024-11-30 08:08 | Outpatient (BNVA) | payer MEDICARE, OTHER, SELFPAY | PROVIDERS: PCP Family Medicine; Visit Provider Podiatrist Foot & Ankle Surgery | DX: D45 Polycythemia vera (principal); R23.4 Changes in skin texture; B35.1 Tinea unguium; L97.322 Non-pressure chronic ulcer of left ankle with fat layer exposed | CPT/HCPCS: 99213 ==

== ENCOUNTER 2024-12-06 09:43 | Oncology outpatient (recurring) (ONCR) | payer MEDICARE, OTHER, SELFPAY ==
[2024-12-06 09:54] LABS: Hematocrit 48.3 % (37-53); Hemoglobin 15.50 g/dL (11.27-16.99); Mean Corpuscular HGB Conc 32.1 g/dL (30-55); Mean Corpuscular Hemoglobin 30.7 pg (27-33); Mean Corpuscular Volume 95.6 fl (82-101); Nucleated Red Blood Cells % 0 %; Platelet Count 884 10^3/cmm (157-399); Red Blood Count 5.05 10^6/uL (3.85-5.65); White Blood Count 19.76 10^3/uL (3.29-11.43)
[2024-12-06 10:15] LABS: Alanine Aminotransferase 13 U/L (0-41); Albumin Level 4.5 g/dL (3.5-5.2); Alkaline Phosphatase 89 U/L (40-130); Anion Gap 14.2 (5-19); Aspartate Amino Transferase 25 U/L (0-40); Blood Urea Nitrogen 26 mg/dL (8-23); Calcium 9.4 mg/dL (8.5-10.5); Carbon Dioxide 26 mmol/L (22-29); Chloride 101 mmol/L (98-107); Globulin 2.7 g/dL (1.3-4.6); Glucose 104 mg/dL (65-115); Osmolality Calculated 287 mOsm/kg (285-295); Potassium 5.2 mmol/L (3.5-5.1); Sodium 136 mmol/L (136-145); Total Protein 7.2 g/dL (6.6-8.7)
== END 2024-12-30 23:59 | disposition home or self-care (01) ==
PROVIDERS: PCP Family Medicine; Visit Provider Nurse Practitioner Family
DX: Z53.9 Procedure and treatment not carried out, unspecified reason; D45 Polycythemia vera; R03.0 Elevated blood-pressure reading, without diagnosis of hypertension; Z79.899 Other long term (current) drug therapy
CPT/HCPCS: 36415; 80053; 85025; 99213

== ENCOUNTER → 2024-12-12 10:01 | Outpatient (BNVA) | payer MEDICARE, OTHER, SELFPAY | PROVIDERS: PCP Family Medicine; Visit Provider Dermatology | DX: L95.0 Livedoid vasculitis (principal); S81.802A Unspecified open wound, left lower leg, initial encounter; X58.XXXA Exposure to other specified factors, initial encounter; L70.0 Acne vulgaris; D18.01 Hemangioma of skin and subcutaneous tissue; L82.1 Other seborrheic keratosis; Z86.007 Personal history of in-situ neoplasm of skin; Z08 Encounter for follow-up examination after completed treatment for malignant neoplasm; Z85.828 Personal history of other malignant neoplasm of skin; Z92.3 Personal history of irradiation; L57.0 Actinic keratosis | CPT/HCPCS: 17000; 99214 ==

== ENCOUNTER → 2025-01-04 08:41 | Outpatient (BNVA) | payer MEDICARE, OTHER, SELFPAY | PROVIDERS: PCP Family Medicine; Visit Provider Podiatrist Foot & Ankle Surgery | DX: L97.512 Non-pressure chronic ulcer of other part of right foot with fat layer exposed (principal); D45 Polycythemia vera; S81.802A Unspecified open wound, left lower leg, initial encounter; R23.4 Changes in skin texture; B35.1 Tinea unguium; X58.XXXA Exposure to other specified factors, initial encounter | CPT/HCPCS: 11042 ==

== ENCOUNTER 2025-01-17 10:45 | Oncology outpatient (recurring) (ONCR) | payer MEDICARE, OTHER, SELFPAY ==
[2025-01-03 09:38] LABS: Hematocrit 47.8 % (37-53); Hemoglobin 15.20 g/dL (11.27-16.99); Mean Corpuscular HGB Conc 31.8 g/dL (30-55); Mean Corpuscular Hemoglobin 28.2 pg (27-33); Mean Corpuscular Volume 88.7 fl (82-101); Nucleated Red Blood Cells % 0 %; Platelet Count 441 10^3/cmm (157-399); Red Blood Count 5.39 10^6/uL (3.85-5.65); White Blood Count 16.33 10^3/uL (3.29-11.43)
[2025-01-03 09:52] LABS: Alanine Aminotransferase 13 U/L (0-41); Albumin Level 4.2 g/dL (3.5-5.2); Alkaline Phosphatase 94 U/L (40-130); Anion Gap 14.1 (5-19); Aspartate Amino Transferase 28 U/L (0-40); Blood Urea Nitrogen 21 mg/dL (8-23); Calcium 8.6 mg/dL (8.5-10.5); Carbon Dioxide 24 mmol/L (22-29); Chloride 104 mmol/L (98-107); Globulin 3.0 g/dL (1.3-4.6); Glucose 101 mg/dL (65-115); Osmolality Calculated 287 mOsm/kg (285-295); Potassium 5.1 mmol/L (3.5-5.1); Sodium 137 mmol/L (136-145); Total Protein 7.2 g/dL (6.6-8.7)
[2025-01-17 10:48] LABS: Hematocrit 44.2 % (37-53); Hemoglobin 14.30 g/dL (11.27-16.99); Mean Corpuscular HGB Conc 32.4 g/dL (30-55); Mean Corpuscular Hemoglobin 27.1 pg (27-33); Mean Corpuscular Volume 83.7 fl (82-101); Nucleated Red Blood Cells % 0 %; Platelet Count 363 10^3/cmm (157-399); Red Blood Count 5.28 10^6/uL (3.85-5.65); White Blood Count 20.44 10^3/uL (3.29-11.43)
== END 2025-01-29 23:59 | disposition home or self-care (01) ==
PROVIDERS: Internal Medicine Medical Oncology; PCP Family Medicine; Visit Provider Nurse Practitioner Family
DX: D45 Polycythemia vera; Z53.9 Procedure and treatment not carried out, unspecified reason
CPT/HCPCS: 36415; 80053; 85025; 99214

== ENCOUNTER 2025-02-28 10:30 | Oncology outpatient (recurring) (ONCR) | payer MEDICARE, OTHER, SELFPAY ==
[2025-01-31 09:04] LABS: Hematocrit 43.5 % (37-53); Hemoglobin 14.00 g/dL (11.27-16.99); Mean Corpuscular HGB Conc 32.2 g/dL (30-55); Mean Corpuscular Hemoglobin 26.7 pg (27-33); Mean Corpuscular Volume 82.9 fl (82-101); Nucleated Red Blood Cells % 0 %; Platelet Count 428 10^3/cmm (157-399); Red Blood Count 5.25 10^6/uL (3.85-5.65); White Blood Count 18.57 10^3/uL (3.29-11.43)
[2025-01-31 09:21] LABS: Alanine Aminotransferase 11 U/L (0-41); Albumin Level 4.2 g/dL (3.5-5.2); Alkaline Phosphatase 95 U/L (40-130); Anion Gap 15.3 (5-19); Aspartate Amino Transferase 21 U/L (0-40); Blood Urea Nitrogen 24 mg/dL (8-23); Calcium 9.2 mg/dL (8.5-10.5); Carbon Dioxide 26 mmol/L (22-29); Chloride 102 mmol/L (98-107); Globulin 2.9 g/dL (1.3-4.6); Glucose 100 mg/dL (65-115); Osmolality Calculated 290 mOsm/kg (285-295); Potassium 5.3 mmol/L (3.5-5.1); Sodium 138 mmol/L (136-145); Total Protein 7.1 g/dL (6.6-8.7)
[2025-02-28 10:27] LABS: Hematocrit 43.3 % (37-53); Hemoglobin 13.90 g/dL (11.27-16.99); Mean Corpuscular HGB Conc 32.1 g/dL (30-55); Mean Corpuscular Hemoglobin 26.8 pg (27-33); Mean Corpuscular Volume 83.6 fl (82-101); Nucleated Red Blood Cells % 0 %; Platelet Count 398 10^3/cmm (157-399); Red Blood Count 5.18 10^6/uL (3.85-5.65); White Blood Count 17.63 10^3/uL (3.29-11.43)
[2025-02-28 11:01] LABS: Alanine Aminotransferase 14 U/L (0-41); Albumin Level 4.4 g/dL (3.5-5.2); Alkaline Phosphatase 79 U/L (40-130); Anion Gap 15.8 (5-19); Aspartate Amino Transferase 25 U/L (0-40); Blood Urea Nitrogen 23 mg/dL (8-23); Calcium 9.4 mg/dL (8.5-10.5); Carbon Dioxide 26 mmol/L (22-29); Chloride 98 mmol/L (98-107); Globulin 2.4 g/dL (1.3-4.6); Glucose 111 mg/dL (65-115); Osmolality Calculated 284 mOsm/kg (285-295); Potassium 4.8 mmol/L (3.5-5.1); Sodium 135 mmol/L (136-145); Total Protein 6.8 g/dL (6.6-8.7)
== END 2025-03-01 23:59 | disposition home or self-care (01) ==
PROVIDERS: Internal Medicine Medical Oncology; PCP Family Medicine; Visit Provider Nurse Practitioner Family
DX: D45 Polycythemia vera; R03.0 Elevated blood-pressure reading, without diagnosis of hypertension; Z79.899 Other long term (current) drug therapy; Z53.9 Procedure and treatment not carried out, unspecified reason
CPT/HCPCS: 36415; 80053; 85025; 99213; 99214